=== PATIENT | female | born 2005 | race Caucasian/White ===

== ENCOUNTER → 2023-01-23 | Outpatient (CLI) | payer OTHER ==
--- NOTE | 2023-01-23 08:47 | USB ---
Reason for Exam: Clinical finding. Technique: Method: Whole Breast Handheld. Findings: The whole breast of both breasts, the axilla of both breasts and the retroareolar of both breasts were scanned. No solid or cystic masses are identified.. Overall Assessment: Negative, BI-RAD 1 Management: Screening Mammogram of both breasts at age 38. A clinical breast exam by your physician is recommended on an annual basis and results should be correlated with mammographic findings. This exam should not preclude additional follow-up of suspicious palpable abnormalities. Results were given to the patient verbally at the time of exam. Electronically signed and approved by: Keyon Tarango M.D. Radiologis
== END | disposition home or self-care (01) ==
LOC: RADUSWWP 08:00
PROVIDERS: ATTEND Family Medicine
DX: N63.10 Unspecified lump in the right breast, unspecified quadrant (principal); N63.20 Unspecified lump in the left breast, unspecified quadrant

== ENCOUNTER 2023-12-06 20:58 | Emergency (ER) | payer OTHER ==
[2023-12-06 21:16] VITALS: TEMP 98
--- NOTE | 2023-12-06 21:35 | ED ---
Nausea/Vomiting/Diarrhea HPI - General Source: patient, RN notes reviewed Mode of arrival: ambulatory Limitations: no limitations <Julissa Guevara - Last Filed: 12/06/23 21:34> <Dat Ash - Last Filed: 12/07/23 02:07> - General Chief complaint: Nausea/Vomiting/Diarrhea Stated complaint: NVD Time Seen by Provider: 12/06/23 21:34 - History of Present Illness Initial comments: Quick note: 18 year old female presenting to the ER with a chief complaint nausea vomiting. She states this been ongoing for approximately 1 month with a decreased appetite. She has a past 2 days has been unable keep anything down. She denies any current abdominal pain. (Julissa Guevara) 18-year-old female presenting with chief complaint of nausea and vomiting. Patient states that for the last month she has had daily nausea and vomiting. States that tonight when she was eating she was repeatedly vomiting and was unable to keep anything down. She denies any abdominal pain. She takes Zofran on occasion which does help, last took Zofran yesterday. She does admit to daily marijuana use. No alcohol or street drugs. Denies any abdominal surgeries. No diarrhea, hematochezia, melena. No chest pain or difficulty breathing. No fevers or chills. No URI-like symptoms. No dysuria or hematuria. No vaginal bleeding or abnormal discharge. Denies chance of . (Dat Ash) - Related Data Previous Rx's Medication Instructions Recorded Metoclopramide [Reglan] 10 mg PO ACHS PRN #10 tab 12/07/23 Allergies Allergy/AdvReac Type Severity Reaction Status Date / Time corn Allergy Unknown Verified 12/06/23 21:17 Review of Systems ROS Other: All systems not noted in ROS Statement are negative. <Julissa Guevara - Last Filed: 12/06/23 21:34> ROS Other: All systems not noted in ROS Statement are negative. <Dat Ash - Last Filed: 12/07/23 02:07> ROS Statement: Those systems with pertinent positive or pertinent negative responses have been documented in the HPI. Past Medical History Past Medical History: No Reported History History of Any Multi-Drug Resistant Organisms: None Reported Past Surgical History: No Surgical Hx Reported Past Psychological History: Bipolar, Depression Smoking Status: Never smoker Past Alcohol Use History: None Reported Past Drug Use History: Marijuana <Julissa Guevara - Last Filed: 12/06/23 21:34> General Exam Limitations: no limitations <Julissa Guevara - Last Filed: 12/06/23 21:34> Limitations: no limitations General appearance: alert, in no apparent distress Head exam: Present: atraumatic, normocephalic, normal inspection Eye exam: Present: normal appearance, EOMI Neck exam: Present: normal inspection. Absent: meningismus Respiratory exam: Present: normal lung sounds bilaterally. Absent: respiratory distress, wheezes, rales, rhonchi, stridor Cardiovascular Exam: Present: regular rate, normal rhythm, normal heart sounds. Absent: systolic murmur, diastolic murmur, rubs, gallop, clicks GI/Abdominal exam: Present: soft. Absent: distended, tenderness, guarding, rebound, rigid Neurological exam: Present: alert, oriented X3 Psychiatric exam: Present: normal affect, normal mood Skin exam: Present: warm, dry <Dat Ash - Last Filed: 12/07/23 02:07> - General Exam Comments Initial Comments: Visual Physical Exam Vital signs reviewed General: Well-appearing, nontoxic, no acute distress. Head: Normocephalic, atraumatic Eyes: PERRLA, EOMI ENT: Airway patent Chest: Nonlabored breathing Skin: No visual rash, normal skin tone Neuro: Alert and oriented 3 Musculoskeletal: No gross abnormalities (Julissa Guevara) Course Vital Signs 12/06/23 12/07/23 21:13 01:16 Temperature 98.0 F Pulse Rate 84 93 Respiratory 20 16 Rate Blood Pressure 116/83 102/64 O2 Sat by Pulse 99 99 Oximetry Medical Decision Making <Julissa Guevara - Last Filed: 12/06/23 21:34> - Lab Data Result diagrams: 12/06/23 23:15 12/06/23 23:15 <Dat Ash - Last Filed: 12/07/23 02:07> - Medical Decision Making I performed the quick note portion of this chart. Electronically signed by Julissa Guevara PA-C (Julissa Guevara) Was pt. sent in by a medical professional or institution ([facility], MORTGAGE SALES MANAGER, urgent care, hospital, or detention...) When possible be specific @ -No Did you speak to anyone other than the patient for history (EMS, parent, family, police, friend...)? What history was obtained from this source @ -No Did you review nursing and triage notes (agree or disagree)? Why? @ -I reviewed and agree with nursing and triage notes Were old charts reviewed (outside hosp., previous admission, EMS record, old EKG, old radiological studies, urgent care reports/EKG's, detention records)? Report findings @ -No old charts were reviewed Differential Diagnosis (chest pain, altered mental status, abdominal pain women, abdominal pain men, vaginal bleeding, weakness, fever, dyspnea, syncope, headache, dizziness, GI bleed, back pain, seizure, CVA, palpatations, mental health, musculoskeletal)? @ -Differential includes gastroenteritis, bowel obstruction, cannabinoid induced hyperemesis, appendicitis, cholecystitis, this is not an all-inclusive list EKG interpreted by me (3pts min.). @ -As above X-rays interpreted by me (1pt min.). @ -None done CT interpreted by me (1pt min.). @ -None done U/S interpreted by me (1pt. min.). @ -None done What testing was considered but not performed or refused? (CT, X-rays, U/S, labs)? Why? @ -None What meds were considered but not given or refused? Why? @ -None Did you discuss the management of the patient with other professionals (professionals i.e. [employer]oso, MORTGAGE SALES MANAGER, lab, RT, psych nurse, perinatal social worker, inside sales representative, teacher, conservation science officer, case planner)? Give summary @ -No Was smoking cessation discussed for >3mins.? @ -No Was critical care preformed (if so, how long)? @ -No Were there social determinants of health that impacted care today? How? (Homelessness, low income, unemployed, alcoholism, drug addiction, transportation, low edu. Level, literacy, decrease access to med. care, half-way, rehab)? @ -No Was there de-escalation of care discussed even if they declined (Discuss DNR or withdrawal of care, Hospice)? DNR status @ -No What co-morbidities impacted this encounter? (DM, HTN, Smoking, COPD, CAD, Cancer, CVA, ARF, Chemo, Hep., AIDS, mental health diagnosis, sleep apnea, morbid obesity)? @ -None Was patient admitted / discharged? Hospital course, mention meds given and route, prescriptions, significant lab abnormalities, going to OR and other pertinent info. @ -18-year-old female presenting with chief complaint of nausea and vomiting. History and physical examination are conducted. WBC 16.3, likely reactive. Patient shows signs of dehydration, sodium 135, potassium 3.4, bilirubin 2.4, urine ketones 4+. Patient is receiving IV fluids and oral potassium replacement. Negative urine hCG. Patient reports improvement after nausea medication. She is able to keep down angeli elizabeth. She is educated on today's findings. Educated on marijuana cessation as it is likely contributing in some part to her repeated vomiting. Discharged. Follow-up with PCP. Report back to ER with any new or worsening symptoms. Discussed return parameters and answered all questions. Patient conveyed verbal understanding and agreed to the plan. I discussed this case in detail with my attending Dr. Bermudez Undiagnosed new problem with uncertain prognosis? @ -No Drug Therapy requiring intensive monitoring for toxicity (Heparin, Nitro, Insulin, Cardizem)? @ -No Were any procedures done? @ -No Diagnosis/symptom? @ -Nausea and vomiting Acute, or Chronic, or Acute on Chronic? @ -Acute Uncomplicated (without systemic symptoms) or Complicated (systemic symptoms)? @ -Uncomplicated Side effects of treatment? @ -No Exacerbation, Progression, or Severe Exacerbation? @ -No Poses a threat to life or bodily function? How? (Chest pain, [place], [place], pneumonia, PE, COPD, DKA, ARF, appy, cholecystitis, CVA, Diverticulitis, Homicidal, Suicidal, threat to staff... and all critical care pts) @ -No (Dat Ash) - Lab Data Lab Results 12/06/23 12/06/23 12/06/23 Range/Units 21:29 21:29 23:15 WBC 16.3 H (4.0-11.0) k/uL RBC 4.99 (3.80-5.40) m/uL Hgb 14.8 (11.4-16.0) gm/dL Hct 44.9 (34.0-46.0) % MCV 90.0 (80.0-100.0) fL MCH 29.7 (25.0-35.0) pg MCHC 33.0 (31.0-37.0) g/dL RDW 12.0 (11.5-15.5) % Plt Count 264 (150-450) k/uL MPV 8.0 Neutrophils % 86 % Lymphocytes % 8 % Monocytes % 5 % Eosinophils % 0 % Basophils % 0 % Neutrophils # 14.0 H (1.3-7.7) k/uL Lymphocytes # 1.3 (1.0-4.8) k/uL Monocytes # 0.9 (0-1.0) k/uL Eosinophils # 0.0 (0-0.7) k/uL Basophils # 0.0 (0-0.2) k/uL Sodium (137-145) mmol/L Potassium (3.5-5.1) mmol/L Chloride (98-107) mmol/L Carbon Dioxide (22-30) mmol/L Anion Gap mmol/L BUN (7-17) mg/dL Creatinine (0.52-1.04) mg/dL Est GFR (CKD-EPI)AfAm (>60 ml/min/1.73 sqM) Est GFR (CKD-EPI)NonAf (>60 ml/min/1.73 sqM) Glucose (74-99) mg/dL Calcium (8.4-10.2) mg/dL Total Bilirubin (0.2-1.3) mg/dL AST (14-36) U/L ALT (4-34) U/L Alkaline Phosphatase (38-126) U/L Total Protein (6.3-8.2) g/dL Albumin (3.5-5.0) g/dL Amylase (30-110) U/L Lipase (23-300) U/L Urine Color Yellow Urine Appearance Cloudy H (Clear) Urine pH 6.0 (5.0-8.0) Ur Specific [place] 1.035 (1.001-1.035) Urine Protein 1+ H (Negative) Urine Glucose (UA) Negative (Negative) Urine Ketones 4+ H (Negative) Urine Blood Small H (Negative) Urine Nitrite Negative (Negative) Urine Bilirubin Negative (Negative) Urine Urobilinogen <2.0 (<2.0) mg/dL Ur Leukocyte Esterase Small H (Negative) Urine RBC 6 H (0-5) /hpf Urine WBC 7 H (0-5) /hpf Ur Squamous Epith Cells 8 H (0-4) /hpf Urine Bacteria Few H (None) /hpf Urine Mucus Moderate H (None) /hpf Urine HCG, Qual Not Detected (Not Detectd) 12/06/23 Range/Units 23:15 WBC (4.0-11.0) k/uL RBC (3.80-5.40) m/uL Hgb (11.4-16.0) gm/dL Hct (34.0-46.0) % MCV (80.0-100.0) fL MCH (25.0-35.0) pg MCHC (31.0-37.0) g/dL RDW (11.5-15.5) % Plt Count (150-450) k/uL MPV Neutrophils % % Lymphocytes % % Monocytes % % Eosinophils % % Basophils % % Neutrophils # (1.3-7.7) k/uL Lymphocytes # (1.0-4.8) k/uL Monocytes # (0-1.0) k/uL Eosinophils # (0-0.7) k/uL Basophils # (0-0.2) k/uL Sodium 135 L (137-145) mmol/L Potassium 3.4 L (3.5-5.1) mmol/L Chloride 103 (98-107) mmol/L Carbon Dioxide 17 L (22-30) mmol/L Anion Gap 15 mmol/L BUN 13 (7-17) mg/dL Creatinine 0.61 (0.52-1.04) mg/dL Est GFR (CKD-EPI)AfAm >90 (>60 ml/min/1.73 sqM) Est GFR (CKD-EPI)NonAf >90 (>60 ml/min/1.73 sqM) Glucose 97 (74-99) mg/dL Calcium 10.4 H (8.4-10.2) mg/dL Total Bilirubin 2.4 H (0.2-1.3) mg/dL AST 30 (14-36) U/L ALT 17 (4-34) U/L Alkaline Phosphatase 65 (38-126) U/L Total Protein 9.0 H (6.3-8.2) g/dL Albumin 5.4 H (3.5-5.0) g/dL Amylase 50 (30-110) U/L Lipase 47 (23-300) U/L Urine Color Urine Appearance (Clear) Urine pH (5.0-8.0) Ur Specific [place] (1.001-1.035) Urine Protein (Negative) Urine Glucose (UA) (Negative) Urine Ketones (Negative) Urine Blood (Negative) Urine Nitrite (Negative) Urine Bilirubin (Negative) Urine Urobilinogen (<2.0) mg/dL Ur Leukocyte Esterase (Negative) Urine RBC (0-5) /hpf Urine WBC (0-5) /hpf Ur Squamous Epith Cells (0-4) /hpf Urine Bacteria (None) /hpf Urine Mucus (None) /hpf Urine HCG, Qual (Not Detectd) Disposition <Julissa Guevara - Last Filed: 12/06/23 21:34> Is patient prescribed a controlled substance at d/c from ED?: No Time of Disposition: 01:57 <Dat Ash - Last Filed: 12/07/23 02:07> Clinical Impression: Nausea & vomiting Disposition: HOME SELF-CARE Condition: Good Instructions (If sedation given, give patient instructions): Acute Nausea and Vomiting (ED) Additional Instructions: Follow-up with PCP. Report back to ER with any new or worsening symptoms. Stay well-hydrated. Take your medication as prescribed. Avoid cannabis use as this can induce vomiting. Prescriptions: Metoclopramide [Reglan] 10 mg PO ACHS PRN #10 tab PRN Reason: Nausea Referrals: Ulises Barraza DO [Primary Care Provider] - 1-2 days
[2023-12-06 23:05] LABS: Appearance,Urine Cloudy (Clear); Bacteria,Urine Few /hpf; Bilirubin,Urine Negative (Negative); Blood,Urine Small (Negative); Color,Urine Yellow; Glucose,Urine (UA) Negative (Negative); Leukocyte Esterase,Urine Small (Negative); Mucus,Urine Moderate /hpf; Nitrite,Urine Negative (Negative); Protein,Urine 1+ (Negative); RBC,Urine 6 /hpf (0-5); Specific Gravity,Urine 1.035 (1.001-1.035); Squamous Epithelial Cell,Urine 8 /hpf (0-4); Urobilinogen,Urine <2.0 mg/dL (<2.0); WBC,Urine 7 /hpf (0-5)
[2023-12-06 23:06] LABS: Ketones,Urine 4+ (Negative)
[2023-12-06] MEDS: ONDANSETRON 4 MG/2 ML VIAL IVP STA (23:11)
[2023-12-06] MEDS: SODIUM CHLORIDE 0.9% 1,000 ML IV ONE (23:12)
[2023-12-06 23:59] LABS: Basophils % (A) 0 %; Eosinophils % (A) 0 %; HCT 44.9 % (34.0-46.0); HGB 14.8 gm/dL (11.4-16.0); Lymphocytes # (A) 1.3 k/uL (1.0-4.8); Lymphocytes % (A) 8 %; MCH 29.7 pg (25.0-35.0); Monocytes # (A) 0.9 k/uL (0-1.0); Monocytes % (A) 5 %; Neutrophils % (A) 86 %; Platelet Count 264 k/uL (150-450); RBC 4.99 m/uL (3.80-5.40); WBC 16.3 k/uL (4.0-11.0)
[2023-12-07 00:44] LABS: ALT 17 U/L (4-34); AST 30 U/L (14-36); African American GFR (CKD) >90 (>60 ml/min/1.73 sqM); Albumin 5.4 g/dL (3.5-5.0); Alkaline Phosphatase 65 U/L (38-126); Amylase 50 U/L (30-110); Anion Gap 15 mmol/L; Blood Urea Nitrogen 13 mg/dL (7-17); Calcium 10.4 mg/dL (8.4-10.2); Carbon Dioxide 17 mmol/L (22-30); Chloride 103 mmol/L (98-107); Glucose 97 mg/dL (74-99); Lipase 47 U/L (23-300); Non-African American GFR(CKD) >90 (>60 ml/min/1.73 sqM); Potassium 3.4 mmol/L (3.5-5.1); Sodium 135 mmol/L (137-145); Total Bilirubin 2.4 mg/dL (0.2-1.3)
[2023-12-07] MEDS: SODIUM CHLORIDE 0.9% 1,000 ML IV STA (01:39)
[2023-12-07] MEDS: METOCLOPRAMIDE 5 MG/ML 2 ML VIAL IVP STA (02:30)
[2023-12-07 02:45] VITALS: BP 100/60; PULSE 90; RESP 18
[2023-12-07] MEDS: POTASSIUM CHLORIDE ER 20 MEQ TAB.ER PO STA (02:49)
== END 2023-12-07 02:45 | disposition home or self-care (01) ==
LOC: EC 20:58
CPT/HCPCS: 36415; 80053; 81001; 81025; 82150; 83690; 85025; 96361; 96374; 96375; 99284

== ENCOUNTER 2024-03-09 10:29 | Emergency (ER) | payer OTHER ==
[2024-03-09 10:35] VITALS: TEMP 98.4
[2024-03-09 11:01] LABS: Basophils % (A) 0 %; Eosinophils % (A) 0 %; HCT 44.1 % (34.0-46.0); HGB 14.8 gm/dL (11.4-16.0); Lymphocytes # (A) 1.6 k/uL (1.0-4.8); Lymphocytes % (A) 12 %; MCH 29.7 pg (25.0-35.0); MCHC 33.5 g/dL (31.0-37.0); MCV 88.6 fL (80.0-100.0); Mean Platelet Volume 7.4; Monocytes # (A) 0.8 k/uL (0-1.0); Monocytes % (A) 6 %; Neutrophils # (A) 11.1 k/uL (1.3-7.7); Neutrophils % (A) 81 %; Platelet Count 281 k/uL (150-450); RBC 4.98 m/uL (3.80-5.40); WBC 13.6 k/uL (4.0-11.0)
--- NOTE | 2024-03-09 11:01 | ED ---
Nausea/Vomiting/Diarrhea HPI - General Chief complaint: Nausea/Vomiting/Diarrhea Stated complaint: vomiting Time Seen by Provider: 03/09/24 10:35 Source: patient, family, RN notes reviewed Mode of arrival: ambulatory Limitations: no limitations - History of Present Illness Initial comments: Patient is a 18 year old female presenting with nausea and vomiting x 2 days with her who provides history. He notes that it started after going to grandparents house and the aroma of cooking caused nausea and vomiting, which has occured on and off for the past 2-3 months. She notes she has also had diarrhea during this time. She endorses "crampy" diffuse abdominal pain without radiation, sore throat from profuse vomiting, and has noticed some slight blood in her vomit. She is unable to keep any food or liquid down. She states her last menstrual period being 2 weeks ago and does not believe she is . She notes smoking marijuana for the past few months in the form of "dabs" once daily at night, her notes that pt has stopped smoking about 1 week ago per recommendation after previous ED visit for similar symptoms. She denies any sick contacts or cough. Of note, her PCP is following her for possible ulcer due to her frequency of similar symptoms per her . - Related Data Previous Rx's Medication Instructions Recorded Metoclopramide [Reglan] 10 mg PO ACHS PRN #10 tab 12/07/23 Metoclopramide [Reglan] 10 mg PO TID PRN #15 tab 03/09/24 Ondansetron Odt [Zofran Odt] 4 mg PO Q8HR PRN #14 tab 03/09/24 Allergies Allergy/AdvReac Type Severity Reaction Status Date / Time corn Allergy Unknown Verified 03/09/24 10:31 Review of Systems ROS Statement: Those systems with pertinent positive or pertinent negative responses have been documented in the HPI. ROS Other: All systems not noted in ROS Statement are negative. Past Medical History Past Medical History: No Reported History History of Any Multi-Drug Resistant Organisms: None Reported Past Surgical History: No Surgical Hx Reported Past Psychological History: Bipolar, Depression Smoking Status: Never smoker Past Alcohol Use History: Occasional Past Drug Use History: Marijuana General Exam Limitations: no limitations General appearance: alert, in no apparent distress Head exam: Present: atraumatic, normocephalic, normal inspection Eye exam: Present: normal appearance, PERRL, EOMI. Absent: scleral icterus, conjunctival injection, periorbital swelling ENT exam: Present: normal exam, mucous membranes dry Neck exam: Present: normal inspection, full ROM. Absent: tenderness, meningismus, lymphadenopathy Respiratory exam: Present: normal lung sounds bilaterally. Absent: respiratory distress, wheezes, rales, rhonchi, stridor Cardiovascular Exam: Present: regular rate, normal rhythm, normal heart sounds. Absent: systolic murmur, diastolic murmur, rubs, gallop, clicks GI/Abdominal exam: Present: soft. Absent: distended, tenderness, guarding, rebound, rigid Skin exam: Present: warm, dry, intact, normal color. Absent: rash Course Vital Signs 03/09/24 03/09/24 10:32 12:38 Temperature 98.4 F Pulse Rate 95 78 Respiratory 20 18 Rate Blood Pressure 133/92 126/74 O2 Sat by Pulse 98 98 Oximetry Medical Decision Making - Medical Decision Making Was pt. sent in by a medical professional or institution (, PA, HIGH SCHOOL BAND TEACHER, urgent care, hospital, or assisted...) When possible be specific @ -No Did you speak to anyone other than the patient for history (EMS, parent, family, police, friend...)? What history was obtained from this source @ -No Did you review nursing and triage notes (agree or disagree)? Why? @ -I reviewed and agree with nursing and triage notes Were old charts reviewed (outside hosp., previous admission, EMS record, old EKG, old radiological studies, urgent care reports/EKG's, assisted records)? Report findings @ -No old charts were reviewed Differential Diagnosis (chest pain, altered mental status, abdominal pain women, abdominal pain men, vaginal bleeding, weakness, fever, dyspnea, syncope, headac he, dizziness, GI bleed, back pain, seizure, CVA, palpatations, mental health, musculoskeletal)? @ -Differential Abdominal Pain Women: Appendicitis, Cholecystitis, diverticulosis, ischemic bowel, pancreatitis, hepatitis, UTI, gastroenteritis, AAA, incarcerated hernia, bowel obstruction, constipation, inflammatory bowel, hepatitis, peptic ulcer disease, splenic infarction, perforated viscus, vulvitis, ovarian torsion, PID, kidney stone, placenta abruption, this is not meant to be an all-inclusive list EKG interpreted by me (3pts min.). @None X-rays interpreted by me (1pt min.). @ -None done CT interpreted by me (1pt min.). @ -None done U/S interpreted by me (1pt. min.). @ -None done What testing was considered but not performed or refused? (CT, X-rays, U/S, labs)? Why? @ -None What meds were considered but not given or refused? Why? @ -None Did you discuss the management of the patient with other professionals (professionals i.e. , PA, HIGH SCHOOL BAND TEACHER, lab, RT, psych nurse, social insurance adviser, cash person, teacher, legal compliance officer, case maker)? Give summary @ -No Was smoking cessation discussed for >3mins.? @ -No Was critical care preformed (if so, how long)? @ -No Were there social determinants of health that impacted care today? How? (Homelessness, low income, unemployed, alcoholism, drug addiction, transportation, low edu. Level, literacy, decrease access to med. care, long term, rehab)? @ -No Was there de-escalation of care discussed even if they declined (Discuss DNR or withdrawal of care, Hospice)? DNR status @ -No What co-morbidities impacted this encounter? (DM, HTN, Smoking, COPD, CAD, C ancer, CVA, ARF, Chemo, Hep., AIDS, mental health diagnosis, sleep apnea, morbid obesity)? @ -Marijuana use Was patient admitted / discharged? Hospital course, mention meds given and route, prescriptions, significant lab abnormalities, going to OR and other pertinent info. @ -Discharge patient felt improved after IV fluids, antiemetics. Patient discharged in stable condition advised to continue refraining from marijuana use. Undiagnosed new problem with uncertain prognosis? @ -No Drug Therapy requiring intensive monitoring for toxicity (Heparin, Nitro, Insulin, Cardizem)? @ -No Were any procedures done? @ -No Diagnosis/symptom? @ -Nausea vomiting dehydration Acute, or Chronic, or Acute on Chronic? @ -Acute Uncomplicated (without systemic symptoms) or Complicated (systemic symptoms)? @ -Uncomplicated Side effects of treatment? @ -No Exacerbation, Progression, or Severe Exacerbation? @ -No Poses a threat to life or bodily function? How? (Chest pain, [place], [place], pneumonia, PE, COPD, DKA, ARF, appy, cholecystitis, CVA, Diverticulitis, Homicidal, Suicidal, threat to staff... and all critical care pts) @ -No - Lab Data Result diagrams: 03/09/24 10:55 03/09/24 10:55 Lab Results 03/09/24 03/09/24 03/09/24 Range/Units 10:55 10:55 11:15 WBC 13.6 H (4.0-11.0) k/uL RBC 4.98 (3.80-5.40) m/uL Hgb 14.8 (11.4-16.0) gm/dL Hct 44.1 (34.0-46.0) % MCV 88.6 (80.0-100.0) fL MCH 29.7 (25.0-35.0) pg MCHC 33.5 (31.0-37.0) g/dL RDW 13.0 (11.5-15.5) % Plt Count 281 (150-450) k/uL MPV 7.4 Neutrophils % 81 % Lymphocytes % 12 % Monocytes % 6 % Eosinophils % 0 % Basophils % 0 % Neutrophils # 11.1 H (1.3-7.7) k/uL Lymphocytes # 1.6 (1.0-4.8) k/uL Monocytes # 0.8 (0-1.0) k/uL Eosinophils # 0.0 (0-0.7) k/uL Basophils # 0.0 (0-0.2) k/uL Sodium 136 L (137-145) mmol/L Potassium 3.3 L (3.5-5.1) mmol/L Chloride 97 L (98-107) mmol/L Carbon Dioxide 26 (22-30) mmol/L Anion Gap 13 mmol/L BUN 8 (7-17) mg/dL Creatinine 0.69 (0.52-1.04) mg/dL Est GFR (CKD-EPI)AfAm >90 (>60 ml/min/1.73 sqM) Est GFR (CKD-EPI)NonAf >90 (>60 ml/min/1.73 sqM) Glucose 114 H (74-99) mg/dL Calcium 10.5 H (8.4-10.2) mg/dL Total Bilirubin 1.5 H (0.2-1.3) mg/dL AST 19 (14-36) U/L ALT 14 (4-34) U/L Alkaline Phosphatase 72 (38-126) U/L Total Protein 8.2 (6.3-8.2) g/dL Albumin 5.2 H (3.5-5.0) g/dL Urine Color Yellow Urine Appearance Cloudy H (Clear) Urine pH 6.5 (5.0-8.0) Ur Specific [place] 1.034 (1.001-1.035) Urine Protein 1+ H (Negative) Urine Glucose (UA) Negative (Negative) Urine Ketones 3+ H (Negative) Urine Blood Negative (Negative) Urine Nitrite Negative (Negative) Urine Bilirubin Negative (Negative) Urine Urobilinogen 2.0 (<2.0) mg/dL Ur Leukocyte Esterase Trace H (Negative) Urine RBC 3 (0-5) /hpf Urine WBC 7 H (0-5) /hpf Ur Squamous Epith Cells 11 H (0-4) /hpf Urine Bacteria Rare H (None) /hpf Urine Mucus Many H (None) /hpf Urine HCG, Qual (Not Detectd) 03/09/24 Range/Units 11:15 WBC (4.0-11.0) k/uL RBC (3.80-5.40) m/uL Hgb (11.4-16.0) gm/dL Hct (34.0-46.0) % MCV (80.0-100.0) fL MCH (25.0-35.0) pg MCHC (31.0-37.0) g/dL RDW (11.5-15.5) % Plt Count (150-450) k/uL MPV Neutrophils % % Lymphocytes % % Monocytes % % Eosinophils % % Basophils % % Neutrophils # (1.3-7.7) k/uL Lymphocytes # (1.0-4.8) k/uL Monocytes # (0-1.0) k/uL Eosinophils # (0-0.7) k/uL Basophils # (0-0.2) k/uL Sodium (137-145) mmol/L Potassium (3.5-5.1) mmol/L Chloride (98-107) mmol/L Carbon Dioxide (22-30) mmol/L Anion Gap mmol/L BUN (7-17) mg/dL Creatinine (0.52-1.04) mg/dL Est GFR (CKD-EPI)AfAm (>60 ml/min/1.73 sqM) Est GFR (CKD-EPI)NonAf (>60 ml/min/1.73 sqM) Glucose (74-99) mg/dL Calcium (8.4-10.2) mg/dL Total Bilirubin (0.2-1.3) mg/dL AST (14-36) U/L ALT (4-34) U/L Alkaline Phosphatase (38-126) U/L Total Protein (6.3-8.2) g/dL Albumin (3.5-5.0) g/dL Urine Color Urine Appearance (Clear) Urine pH (5.0-8.0) Ur Specific [place] (1.001-1.035) Urine Protein (Negative) Urine Glucose (UA) (Negative) Urine Ketones (Negative) Urine Blood (Negative) Urine Nitrite (Negative) Urine Bilirubin (Negative) Urine Urobilinogen (<2.0) mg/dL Ur Leukocyte Esterase (Negative) Urine RBC (0-5) /hpf Urine WBC (0-5) /hpf Ur Squamous Epith Cells (0-4) /hpf Urine Bacteria (None) /hpf Urine Mucus (None) /hpf Urine HCG, Qual Not Detected (Not Detectd) Disposition Clinical Impression: Nausea & vomiting, Dehydration Disposition: HOME SELF-CARE Condition: Stable Instructions (If sedation given, give patient instructions): Acute Nausea and Vomiting (ED) Additional Instructions: Please return to the Emergency Department if symptoms worsen or any other concerns. Prescriptions: Metoclopramide [Reglan] 10 mg PO TID PRN #15 tab PRN Reason: Nausea Ondansetron Odt [Zofran Odt] 4 mg PO Q8HR PRN #14 tab PRN Reason: Nausea Is patient prescribed a controlled substance at d/c from ED?: No Referrals: Ulises Barraza DO [Primary Care Provider] - 1-2 days Nichole Silva MD [STAFF PHYSICIAN] - 1-2 days Time of Disposition: 12:30
[2024-03-09] MEDS: METOCLOPRAMIDE 5 MG/ML 2 ML VIAL IVP STA (11:10)
[2024-03-09] MEDS: SODIUM CHLORIDE 0.9% 1,000 ML IV STA ×2 (11:10→11:56)
[2024-03-09] MEDS: diphenhydrAMINE 50 MG/ML 1 ML VIAL IVP STA (11:10)
[2024-03-09 11:17] LABS: ALT 14 U/L (4-34); AST 19 U/L (14-36); African American GFR (CKD) >90 (>60 ml/min/1.73 sqM); Albumin 5.2 g/dL (3.5-5.0); Alkaline Phosphatase 72 U/L (38-126); Anion Gap 13 mmol/L; Blood Urea Nitrogen 8 mg/dL (7-17); Calcium 10.5 mg/dL (8.4-10.2); Carbon Dioxide 26 mmol/L (22-30); Chloride 97 mmol/L (98-107); Glucose 114 mg/dL (74-99); Non-African American GFR(CKD) >90 (>60 ml/min/1.73 sqM); Potassium 3.3 mmol/L (3.5-5.1); Sodium 136 mmol/L (137-145); Total Bilirubin 1.5 mg/dL (0.2-1.3); Total Protein 8.2 g/dL (6.3-8.2)
[2024-03-09 11:26] LABS: Appearance,Urine Cloudy (Clear); Bacteria,Urine Rare /hpf; Bilirubin,Urine Negative (Negative); Blood,Urine Negative (Negative); Color,Urine Yellow; Glucose,Urine (UA) Negative (Negative); Ketones,Urine 3+ (Negative); Leukocyte Esterase,Urine Trace (Negative); Mucus,Urine Many /hpf; Nitrite,Urine Negative (Negative); PH, Urine 6.5 (5.0-8.0); Protein,Urine 1+ (Negative); RBC,Urine 3 /hpf (0-5); Specific Gravity,Urine 1.034 (1.001-1.035); Squamous Epithelial Cell,Urine 11 /hpf (0-4); WBC,Urine 7 /hpf (0-5)
[2024-03-09 12:39] VITALS: BP 126/74; PULSE 78; RESP 18
== END 2024-03-09 12:39 | disposition home or self-care (01) ==
LOC: EC 10:29
DX: R11.2 Nausea with vomiting, unspecified (principal); E86.0 Dehydration; F12.90 Cannabis use, unspecified, uncomplicated; Z91.018 Allergy to other foods
CPT/HCPCS: 96361 ×2; 96374 ×2; 96375 ×2; 99284 ×2; 36415; 80053; 85025; 81001; 81025; J1200; J2765

== ENCOUNTER 2024-03-10 16:15 | Emergency (ER) | payer OTHER ==
[2024-03-10 16:27] VITALS: TEMP 99.6
--- NOTE | 2024-03-10 16:34 | ED ---
Nausea/Vomiting/Diarrhea HPI - General Chief complaint: Nausea/Vomiting/Diarrhea Stated complaint: vomiting Time Seen by Provider: 03/10/24 16:31 Source: patient, RN notes reviewed Mode of arrival: ambulatory Limitations: no limitations - History of Present Illness Initial comments: This is a 18-year-old female with no significant medical history presenting to the emergency department for intractable nausea and vomiting over the past 2 days. Patient was evaluated yesterday emergency department where she underwent workup including laboratory testing and urinalysis provided with IV fluids and discharged home in stable condition. Patient states that since 12:00 today she has been unable to keep down liquids despite taking sublingual Zofran. She e ndorses a epigastric abdominal cramping with no abdominal pain, dysuria, hematuria. Endorses diarrhea with no melena or hematochezia. Denies fevers, chills, cough, congestion, rhinorrhea, headache. States that she uses alcohol socially and admits to previous daily marijuana use however states that she has not had marijuana over the past 2 weeks. - Related Data Previous Rx's Medication Instructions Recorded Metoclopramide [Reglan] 10 mg PO ACHS PRN #10 tab 12/07/23 Metoclopramide [Reglan] 10 mg PO TID PRN #15 tab 03/09/24 Ondansetron Odt [Zofran Odt] 4 mg PO Q8HR PRN #14 tab 03/09/24 Cephalexin [Keflex] 500 mg PO Q6HR #40 cap 03/10/24 Allergies Allergy/AdvReac Type Severity Reaction Status Date / Time corn Allergy Unknown Verified 03/10/24 16:27 Review of Systems ROS Statement: Those systems with pertinent positive or pertinent negative responses have been documented in the HPI. ROS Other: All systems not noted in ROS Statement are negative. Past Medical History Past Medical History: No Reported History History of Any Multi-Drug Resistant Organisms: None Reported Past Surgical History: No Surgical Hx Reported Past Psychological History: Bipolar, Depression Smoking Status: Never smoker Past Alcohol Use History: Occasional Past Drug Use History: Marijuana General Exam Limitations: no limitations Eye exam: Present: normal appearance, PERRL, EOMI. Absent: scleral icterus, conjunctival injection, periorbital swelling ENT exam: Present: normal exam, mucous membranes moist Respiratory exam: Present: normal lung sounds bilaterally. Absent: respiratory distress, wheezes, rales, rhonchi, stridor Cardiovascular Exam: Present: regular rate, normal rhythm, normal heart sounds. Absent: systolic murmur, diastolic murmur, rubs, gallop, clicks GI/Abdominal exam: Present: soft, normal bowel sounds. Absent: distended, tenderness, guarding, rebound, rigid Extremities exam: Present: normal inspection, full ROM, normal capillary refill. Absent: tenderness, pedal edema, joint swelling, calf tenderness Back exam: Present: normal inspection Skin exam: Present: warm, dry, intact, normal color. Absent: rash Course Vital Signs 03/10/24 16:24 Temperature 99.6 F Pulse Rate 64 Respiratory 16 Rate Blood Pressure 127/84 O2 Sat by Pulse 96 Oximetry Medical Decision Making - Medical Decision Making Was pt. sent in by a medical professional or institution (, PA, KEY HOLDER, urgent c are, hospital, or half-way...) When possible be specific @ -No Did you speak to anyone other than the patient for history (EMS, parent, family, police, friend...)? What history was obtained from this source @ -No Did you review nursing and triage notes (agree or disagree)? Why? @ -I reviewed and agree with nursing and triage notes Were old charts reviewed (outside hosp., previous admission, EMS record, old EKG, old radiological studies, urgent care reports/EKG's, half-way records)? Report findings @ -Reviewed patient's chart from 03/30 where she presented with nausea and vomiting labs remarkable for mild hypokalemia and leukocytosis, patient was discharged in stable condition. Differential Diagnosis (chest pain, altered mental status, abdominal pain women, abdominal pain men, vaginal bleeding, weakness, fever, dyspnea, syncope, headache, dizziness, GI bleed, back pain, seizure, CVA, palpatations, mental health, musculoskeletal)? @ -Differential Abdominal Pain Women: Appendicitis, Cholecystitis, diverticulosis, ischemic bowel, pancreatitis, hepatitis, UTI, gastroenteritis, AAA, incarcerated hernia, bowel obstruction, constipation, inflammatory bowel, hepatitis, peptic ulcer disease, splenic infarction, perforated viscus, vulvitis, ovarian torsion, PID, kidney stone, pl acenta abruption, this is not meant to be an all-inclusive list EKG interpreted by me (3pts min.). @ -None X-rays interpreted by me (1pt min.). @ -None done CT interpreted by me (1pt min.). @ -None done U/S interpreted by me (1pt. min.). @ -None done What testing was considered but not performed or refused? (CT, X-rays, U/S, labs)? Why? @ -None What meds were considered but not given or refused? Why? @ -None Did you discuss the management of the patient with other professionals (professionals i.e. , PA, KEY HOLDER, lab, RT, psych nurse, clinical social work therapist, nitroglycerin separator operator, teacher, gunnery/ordnance officer, human services case manager)? Give summary @ -No Was smoking cessation discussed for >3mins.? @ -No Was critical care preformed (if so, how long)? @ -No Were there social determinants of health that impacted care today? How? (Ho melessness, low income, unemployed, alcoholism, drug addiction, transportation, low edu. Level, literacy, decrease access to med. care, fci, rehab)? @ -No Was there de-escalation of care discussed even if they declined (Discuss DNR or withdrawal of care, Hospice)? DNR status @ -No What co-morbidities impacted this encounter? (DM, HTN, Smoking, COPD, CAD, Cancer, CVA, ARF, Chemo, Hep., AIDS, mental health diagnosis, sleep apnea, morbid obesity)? @ -None Was patient admitted / discharged? Hospital course, mention meds given and route, prescriptions, significant lab abnormalities, going to OR and other pertinent info. @ -Discharged. 18-year-old female presenting with nausea and vomiting. Abd ominal examination is unremarkable. Vitals are stable. she is provided with IV fluids, antiemetics, Protonix, Benadryl pending laboratory results. CBC and CMP unremarkable. Urinalysis remarkable for infection including positive nitrates, white cells and occasional bacteria, hCG is negative. Patient is provided with Rocephin and outpatient prescription for Keflex. Additionally, patient's urine sent for culture. Patient has prescription for Zofran provided yesterday and recommend that she take this medication as needed addition to following a liquid diet over the next 24 hours. Case discussed with Dr. Bhatt Undiagnosed new problem with uncertain prognosis? @ -No Drug Therapy requiring intensive monitoring for toxicity (Heparin, Nitro, Insulin, Cardizem)? @ -No Were any procedures done? @ -No Diagnosis/symptom? @ -Nausea and vomiting, urinary tract infection Acute, or Chronic, or Acute on Chronic? @ -acute Uncomplicated (without systemic symptoms) or Complicated (systemic symptoms)? @ - uncomplicated Side effects of treatment? @ -No Exacerbation, Progression, or Severe Exacerbation? @ -No Poses a threat to life or bodily function? How? (Chest pain, [place], [place], pneumonia, PE, COPD, DKA, ARF, appy, cholecystitis, CVA, Diverticulitis, Homicidal, Suicidal, threat to staff... and all critical care pts) @ -No - Lab Data Result diagrams: 03/10/24 17:02 03/10/24 17:02 Lab Results 03/10/24 03/10/24 03/10/24 Range/Units 17:02 17:02 17:02 WBC 10.8 (4.0-11.0) k/uL RBC 4.52 (3.80-5.40) m/uL Hgb 13.6 (11.4-16.0) gm/dL Hct 41.1 (34.0-46.0) % MCV 90.9 (80.0-100.0) fL MCH 30.0 (25.0-35.0) pg MCHC 33.0 (31.0-37.0) g/dL RDW 12.6 (11.5-15.5) % Plt Count 221 (150-450) k/uL MPV 7.2 Neutrophils % 75 % Lymphocytes % 17 % Monocytes % 7 % Eosinophils % 0 % Basophils % 0 % Neutrophils # 8.1 H (1.3-7.7) k/uL Lymphocytes # 1.8 (1.0-4.8) k/uL Monocytes # 0.7 (0-1.0) k/uL Eosinophils # 0.0 (0-0.7) k/uL Basophils # 0.0 (0-0.2) k/uL Sodium 134 L (137-145) mmol/L Potassium 3.6 (3.5-5.1) mmol/L Chloride 99 (98-107) mmol/L Carbon Dioxide 28 (22-30) mmol/L Anion Gap 7 mmol/L BUN 9 (7-17) mg/dL Creatinine 0.64 (0.52-1.04) mg/dL Est GFR (CKD-EPI)AfAm >90 (>60 ml/min/1.73 sqM) Est GFR (CKD-EPI)NonAf >90 (>60 ml/min/1.73 sqM) Glucose 101 H (74-99) mg/dL Calcium 9.6 (8.4-10.2) mg/dL Total Bilirubin 1.1 (0.2-1.3) mg/dL AST 17 (14-36) U/L ALT 11 (4-34) U/L Alkaline Phosphatase 61 (38-126) U/L Total Protein 6.7 (6.3-8.2) g/dL Albumin 4.4 (3.5-5.0) g/dL Amylase 33 (30-110) U/L Lipase 32 (23-300) U/L Urine Color Yellow Urine Appearance Cloudy H (Clear) Urine pH 6.5 (5.0-8.0) Ur Specific [place] 1.029 (1.001-1.035) Urine Protein 1+ H (Negative) Urine Glucose (UA) Negative (Negative) Urine Ketones 4+ H (Negative) Urine Blood Negative (Negative) Urine Nitrite Positive H (Negative) Urine Bilirubin Negative (Negative) Urine Urobilinogen 2.0 (<2.0) mg/dL Ur Leukocyte Esterase Negative (Negative) Urine RBC 7 H (0-5) /hpf Urine WBC 6 H (0-5) /hpf Ur Squamous Epith Cells 4 (0-4) /hpf Urine Bacteria Occasional H (None) /hpf Urine Mucus Many H (None) /hpf Urine HCG, Qual (Not Detectd) 03/10/24 Range/Units 17:02 WBC (4.0-11.0) k/uL RBC (3.80-5.40) m/uL Hgb (11.4-16.0) gm/dL Hct (34.0-46.0) % MCV (80.0-100.0) fL MCH (25.0-35.0) pg MCHC (31.0-37.0) g/dL RDW (11.5-15.5) % Plt Count (150-450) k/uL MPV Neutrophils % % Lymphocytes % % Monocytes % % Eosinophils % % Basophils % % Neutrophils # (1.3-7.7) k/uL Lymphocytes # (1.0-4.8) k/uL Monocytes # (0-1.0) k/uL Eosinophils # (0-0.7) k/uL Basophils # (0-0.2) k/uL Sodium (137-145) mmol/L Potassium (3.5-5.1) mmol/L Chloride (98-107) mmol/L Carbon Dioxide (22-30) mmol/L Anion Gap mmol/L BUN (7-17) mg/dL Creatinine (0.52-1.04) mg/dL Est GFR (CKD-EPI)AfAm (>60 ml/min/1.73 sqM) Est GFR (CKD-EPI)NonAf (>60 ml/min/1.73 sqM) Glucose (74-99) mg/dL Calcium (8.4-10.2) mg/dL Total Bilirubin (0.2-1.3) mg/dL AST (14-36) U/L ALT (4-34) U/L Alkaline Phosphatase (38-126) U/L Total Protein (6.3-8.2) g/dL Albumin (3.5-5.0) g/dL Amylase (30-110) U/L Lipase (23-300) U/L Urine Color Urine Appearance (Clear) Urine pH (5.0-8.0) Ur Specific [place] (1.001-1.035) Urine Protein (Negative) Urine Glucose (UA) (Negative) Urine Ketones (Negative) Urine Blood (Negative) Urine Nitrite (Negative) Urine Bilirubin (Negative) Urine Urobilinogen (<2.0) mg/dL Ur Leukocyte Esterase (Negative) Urine RBC (0-5) /hpf Urine WBC (0-5) /hpf Ur Squamous Epith Cells (0-4) /hpf Urine Bacteria (None) /hpf Urine Mucus (None) /hpf Urine HCG, Qual Not Detected (Not Detectd) Disposition Clinical Impression: Nausea and vomiting, UTI (urinary tract infection) Disposition: HOME SELF-CARE Condition: Good Instructions (If sedation given, give patient instructions): Urinary Tract Infection in Women (ED), Acute Nausea and Vomiting (ED) Additional Instructions: Please return to the Emergency Department if symptoms worsen or any other concerns. Prescriptions: Cephalexin [Keflex] 500 mg PO Q6HR #40 cap Is patient prescribed a controlled substance at d/c from ED?: No Referrals: Ulises Barraza DO [Primary Care Provider] - 1-2 days Time of Disposition: 17:56
[2024-03-10] MEDS: PANTOPRAZOLE 40 MG/10 ML VIAL IVP STA (16:56)
[2024-03-10] MEDS: diphenhydrAMINE 50 MG/ML 1 ML VIAL IVP STA (16:56)
[2024-03-10] MEDS: ONDANSETRON 4 MG/2 ML VIAL IVP STA (16:56)
[2024-03-10] MEDS: SODIUM CHLORIDE 0.9% 1,000 ML IV STA (16:56)
[2024-03-10 17:21] LABS: Basophils % (A) 0 %; Eosinophils % (A) 0 %; HCT 41.1 % (34.0-46.0); HGB 13.6 gm/dL (11.4-16.0); Lymphocytes # (A) 1.8 k/uL (1.0-4.8); Lymphocytes % (A) 17 %; MCV 90.9 fL (80.0-100.0); Mean Platelet Volume 7.2; Monocytes # (A) 0.7 k/uL (0-1.0); Monocytes % (A) 7 %; Neutrophils # (A) 8.1 k/uL (1.3-7.7); Neutrophils % (A) 75 %; Platelet Count 221 k/uL (150-450); RBC 4.52 m/uL (3.80-5.40); RDW 12.6 % (11.5-15.5); WBC 10.8 k/uL (4.0-11.0)
[2024-03-10 17:26] LABS: Appearance,Urine Cloudy (Clear); Bacteria,Urine Occasional /hpf; Bilirubin,Urine Negative (Negative); Blood,Urine Negative (Negative); Color,Urine Yellow; Glucose,Urine (UA) Negative (Negative); Leukocyte Esterase,Urine Negative (Negative); Mucus,Urine Many /hpf; Nitrite,Urine Positive (Negative); PH, Urine 6.5 (5.0-8.0); Protein,Urine 1+ (Negative); RBC,Urine 7 /hpf (0-5); Specific Gravity,Urine 1.029 (1.001-1.035); Squamous Epithelial Cell,Urine 4 /hpf (0-4); WBC,Urine 6 /hpf (0-5)
[2024-03-10 17:36] LABS: ALT 11 U/L (4-34); AST 17 U/L (14-36); African American GFR (CKD) >90 (>60 ml/min/1.73 sqM); Albumin 4.4 g/dL (3.5-5.0); Alkaline Phosphatase 61 U/L (38-126); Amylase 33 U/L (30-110); Anion Gap 7 mmol/L; Blood Urea Nitrogen 9 mg/dL (7-17); Calcium 9.6 mg/dL (8.4-10.2); Carbon Dioxide 28 mmol/L (22-30); Chloride 99 mmol/L (98-107); Glucose 101 mg/dL (74-99); Lipase 32 U/L (23-300); Non-African American GFR(CKD) >90 (>60 ml/min/1.73 sqM); Potassium 3.6 mmol/L (3.5-5.1); Sodium 134 mmol/L (137-145); Total Bilirubin 1.1 mg/dL (0.2-1.3); Total Protein 6.7 g/dL (6.3-8.2)
[2024-03-10 17:40] LABS: Ketones,Urine 4+ (Negative)
[2024-03-10] MEDS ORDERED: cefTRIAXone IN SWFI 1,000 MG/10 ML SYRINGE IVP STA (17:54)
[2024-03-10 18:28] VITALS: BP 130/80; PULSE 90; RESP 18
== END 2024-03-10 18:39 | disposition home or self-care (01) ==
LOC: EC 16:15
DX: R11.2 Nausea with vomiting, unspecified (principal); N39.0 Urinary tract infection, site not specified; Z91.018 Allergy to other foods
CPT/HCPCS: 36415; 80053; 82150; 83690; 85025; 81001; 81025; 87086; 87077; 87186; 99284; 96374; 96375; 96361; J1200; J2405; J2470

== ENCOUNTER 2024-03-11 18:24 | Emergency (ER) | payer OTHER ==
--- NOTE | 2024-03-11 19:12 | ED ---
General Adult HPI - General Source: patient, RN notes reviewed <Tamra Maher - Last Filed: 03/11/24 19:11> <Rafael Park - Last Filed: 03/11/24 21:44> - General Stated complaint: N/V/D Time Seen by Provider: 03/11/24 18:41 - History of Present Illness Initial comments: Bart feldman is a 18-year-old female presenting to the emergency department for complaint of persistent nausea and vomiting over the past 3 days. Patient states that she has been seen in the emergency department multiple times for similar complaint and is requesting admission at this time. She is attempted to take Zofran outpatient with minimal relief of symptoms. (Tamra Maher) Dictation was produced using [employer] dictation software. please excuse any grammatical, word or spelling errors. Chief Complaint: 18-year-old female presents to the emergency department with nausea vomiting abdominal pain History of Present Illness: Patient is 18-year-old female this is her third vis it in overall. States she is here for nausea vomiting abdominal pain states she has some bilious vomiting. Patient states she has been having some eating trouble for the last several weeks. She has not follow-up with a specialist. Denies any fever, chills or night sweats. Patient denies . States that she recently quit daily marijuana use. States that since being in the emergency department her symptoms are significantly improved. The ROS documented in this emergency department record has been reviewed and confirmed by me. Those systems with pertinent positive or negative responses have been documented in the HPI. All other systems are other negative and/or noncontributory. (Rafael Park) - Related Data Previous Rx's Medication Instructions Recorded Metoclopramide [Reglan] 10 mg PO ACHS PRN #10 tab 12/07/23 Metoclopramide [Reglan] 10 mg PO TID PRN #15 tab 03/09/24 Ondansetron Odt [Zofran Odt] 4 mg PO Q8HR PRN #14 tab 03/09/24 Cephalexin [Keflex] 500 mg PO Q6HR #40 cap 03/10/24 Ondansetron Odt [Zofran Odt] 4 mg PO Q8HR PRN #24 tab 03/11/24 Allergies Allergy/AdvReac Type Severity Reaction Status Date / Time corn Allergy Unknown Verified 03/11/24 19:19 Review of Systems ROS Other: All systems not noted in ROS Statement are negative. <Tamra Maher - Last Filed: 03/11/24 19:11> ROS Other: All systems not noted in ROS Statement are negative. <Rafael Park - Last Filed: 03/11/24 21:44> ROS Statement: Those systems with pertinent positive or pertinent negative responses have been documented in the HPI. Past Medical History Past Medical History: No Reported History History of Any Multi-Drug Resistant Organisms: None Reported Past Surgical History: No Surgical Hx Reported Past Psychological History: Bipolar, Depression Smoking Status: Never smoker Past Alcohol Use History: Occasional Past Drug Use History: Marijuana <Tamra Maher - Last Filed: 03/11/24 19:11> General Exam <Tamra Maher - Last Filed: 03/11/24 19:11> <Rafael Park - Last Filed: 03/11/24 21:44> - General Exam Comments Initial Comments: Visual Physical Exam Vital signs reviewed General: Well-appearing, nontoxic, no acute distress. Head: Normocephalic, atraumatic Eyes: PERRLA, EOMI ENT: Airway patent Chest: Nonlabored breathing Skin: No visual rash, normal skin tone Neuro: Alert and oriented 3 Musculoskeletal: No gross abnormalities (Tamra Maher) PHYSICAL EXAM: General Impression: Alert and oriented x3, not in acute distress HEENT: Normocephalic atraumatic, extra-ocular movements intact, pupils equal and reactive to light bilaterally, mucous membranes moist. Cardiovascular: Heart regular rate and rhythm Chest: Able to complete full sentences, no retractions, no tachypnea Abdomen: abdomen soft, non-tender, non-distended, no organomegaly Musculoskeletal: Pulses present and equal in all extremities, no peripheral edema Motor: no focal deficits noted Neurological: CN II-XII grossly intact, no focal motor or sensory deficits noted Skin: Intact with no visualized rashes Psych: Normal affect and mood (Rafael Park) Course Vital Signs 03/11/24 19:19 Temperature 98.3 F Pulse Rate 64 Respiratory 18 Rate Blood Pressure 108/70 O2 Sat by Pulse 96 Oximetry Medical Decision Making <Tamra Maher - Last Filed: 03/11/24 19:11> - Lab Data Result diagrams: 03/11/24 19:48 03/11/24 19:48 <Rafael Park - Last Filed: 03/11/24 21:44> - Medical Decision Making I completed the quick note portion of this chart signed Tamra Maher PA-C (Tamra Maher) Was pt. sent in by a medical professional or institution ([facility] Reynoso, BIOCHEMISTRY TECHNICIAN, urgent care, hospital, or fdc...) When possible be specific @ -No Did you speak to anyone other than the patient for history (EMS, parent, family, police, friend...)? What history was obtained from this source @ -No Did you review nursing and triage notes (agree or disagree)? Why? @ -I reviewed and agree with nursing and triage notes Were old charts reviewed (outside hosp., previous admission, EMS record, old EKG, old radiological studies, urgent care reports/EKG's, fdc records)? Report findings @ -No old charts were reviewed Differential Diagnosis (chest pain, altered mental status, abdominal pain women, abdominal pain men, vaginal bleeding, musculoskeletal, weakness, fever, dyspnea, syncope, headache, dizziness, GI bleed, back pain, seizure, CVA, palpatations, mental health)? @ -Differential Abdominal Pain Women: Appendicitis, Cholecystitis, diverticulosis, ischemic bowel, pancreatitis, hepatitis, UTI, gastroenteritis, AAA, incarcerated hernia, bowel obstruction, constipation, inflammatory bowel, hepatitis, peptic ulcer disease, splenic infarction, perforated viscus, vulvitis, ovarian torsion, PID, kidney stone, placenta abruption, this is not meant to be an all-inclusive list EKG interpreted by me (3pts min.). @ -None done X-rays interpreted by me (1pt min.). @ -None done CT interpreted by me (1pt min.). @ -None done U/S interpreted by me (1pt. min.). @ -None done What testing was considered but not performed or refused? (CT, X-rays, U/S, labs)? Why? @ -None What meds were considered but not given or refused? Why? @ -None Was smoking cessation discussed for >3mins.? @ -No Were there social determinants of health that impacted care today? How? (Homelessness, low income, unemployed, alcoholism, drug addiction, transportation, low edu. Level, literacy, decrease access to med. care, senior care, rehab)? @ -No Was there de-escalation of care discussed even if they declined (Discuss DNR or withdrawal of care, Hospice)? DNR status @ -No What co-morbidities impacted this encounter? (DM, HTN, Smoking, COPD, CAD, Cancer, CVA, ARF, Chemo, Hep., AIDS, mental health diagnosis, sleep apnea, morbid obesity)? @ -None Was patient admitted / discharged? Hospital course, mention meds given and route, prescriptions, significant lab abnormalities, going to OR and other pertinent info. @ -1-year-old female presents to the emergency department for 36 arrival for chief complaint of nausea vomiting abdominal pain. She also complains of diarrhea states that she may have chronic issues for the last several days. This is her third visit here in the last 3 days. Vital signs stable. Patient well-appearing at the bedside. Physical examination benign. Patient not in any acute distress. Her abdomen is soft and benign. Laboratory evaluation is u nremarkable. Urinalysis negative. Patient offered observation admission however due to hospital volume and lack of open beds she preferred to be discharged because she does not want to be held in the hallway. I believe this is reasonable disposition. She is given a referral to a tape duplicator and given return precautions. Did you discuss the management of the patient with other professionals (professionals i.e. , PA, BIOCHEMISTRY TECHNICIAN, lab, RT, psych nurse, manager social work, family lawyer, teacher, special weapons and tactics officer, gearcase assembler)? Give summary @ -No Was critical care preformed (if so, how long)? @ -No Undiagnosed new problem with uncertain prognosis? @ -No Drug Therapy requiring intensive monitoring for toxicity (Heparin, Nitro, Insulin, Cardizem)? @ -No Were any procedures done? @ -No Diagnosis/symptom? Acute, or Chronic, or Acute on Chronic? Uncomplicated (without systemic symptoms) or Complicated (systemic symptoms)? @ -Nausea, vomiting, no high risk features Side effects of treatment? @ -No Exacerbation, Progression, or Severe Exacerbation? @ -No Poses a threat to life or bodily function? How? (Chest pain, [place], [place], pneumonia, PE, COPD, DKA, ARF, appy, cholecystitis, CVA, Diverticulitis, Homicidal, Suicidal, threat to staff... and all critical care pts) @ -No (Rafael Park) - Lab Data Lab Results 03/11/24 03/11/24 03/11/24 Range/Units 19:38 19:38 19:48 WBC 8.6 (4.0-11.0) k/uL RBC 4.73 (3.80-5.40) m/uL Hgb 14.0 (11.4-16.0) gm/dL Hct 41.8 (34.0-46.0) % MCV 88.4 (80.0-100.0) fL MCH 29.6 (25.0-35.0) pg MCHC 33.5 (31.0-37.0) g/dL RDW 12.5 (11.5-15.5) % Plt Count 234 (150-450) k/uL MPV 7.5 Neutrophils % 69 % Lymphocytes % 22 % Monocytes % 8 % Eosinophils % 0 % Basophils % 0 % Neutrophils # 6.0 (1.3-7.7) k/uL Lymphocytes # 1.9 (1.0-4.8) k/uL Monocytes # 0.7 (0-1.0) k/uL Eosinophils # 0.0 (0-0.7) k/uL Basophils # 0.0 (0-0.2) k/uL Sodium (137-145) mmol/L Potassium (3.5-5.1) mmol/L Chloride (98-107) mmol/L Carbon Dioxide (22-30) mmol/L Anion Gap mmol/L BUN (7-17) mg/dL Creatinine (0.52-1.04) mg/dL Est GFR (CKD-EPI)AfAm (>60 ml/min/1.73 sqM) Est GFR (CKD-EPI)NonAf (>60 ml/min/1.73 sqM) Glucose (74-99) mg/dL Calcium (8.4-10.2) mg/dL Total Bilirubin (0.2-1.3) mg/dL AST (14-36) U/L ALT (4-34) U/L Alkaline Phosphatase (38-126) U/L Total Protein (6.3-8.2) g/dL Albumin (3.5-5.0) g/dL Lipase (23-300) U/L Urine Color Light Yellow Urine Appearance Turbid H (Clear) Urine pH 6.5 (5.0-8.0) Ur Specific [place] 1.022 (1.001-1.035) Urine Protein Trace H (Negative) Urine Glucose (UA) Negative (Negative) Urine Ketones 4+ H (Negative) Urine Blood Negative (Negative) Urine Nitrite Negative (Negative) Urine Bilirubin Negative (Negative) Urine Urobilinogen 3.0 (<2.0) mg/dL Ur Leukocyte Esterase Negative (Negative) Urine RBC 1 (0-5) /hpf Urine WBC 4 (0-5) /hpf Ur Squamous Epith Cells 3 (0-4) /hpf Urine Bacteria Rare H (None) /hpf Urine Mucus Occasional H (None) /hpf Urine Yeast (Budding) Many H (None) /hpf Urine HCG, Qual Not Detected (Not Detectd) 03/11/24 Range/Units 19:48 WBC (4.0-11.0) k/uL RBC (3.80-5.40) m/uL Hgb (11.4-16.0) gm/dL Hct (34.0-46.0) % MCV (80.0-100.0) fL MCH (25.0-35.0) pg MCHC (31.0-37.0) g/dL RDW (11.5-15.5) % Plt Count (150-450) k/uL MPV Neutrophils % % Lymphocytes % % Monocytes % % Eosinophils % % Basophils % % Neutrophils # (1.3-7.7) k/uL Lymphocytes # (1.0-4.8) k/uL Monocytes # (0-1.0) k/uL Eosinophils # (0-0.7) k/uL Basophils # (0-0.2) k/uL Sodium 138 (137-145) mmol/L Potassium 3.3 L (3.5-5.1) mmol/L Chloride 98 (98-107) mmol/L Carbon Dioxide 30 (22-30) mmol/L Anion Gap 10 mmol/L BUN 8 (7-17) mg/dL Creatinine 0.76 (0.52-1.04) mg/dL Est GFR (CKD-EPI)AfAm >90 (>60 ml/min/1.73 sqM) Est GFR (CKD-EPI)NonAf >90 (>60 ml/min/1.73 sqM) Glucose 86 (74-99) mg/dL Calcium 9.9 (8.4-10.2) mg/dL Total Bilirubin 1.3 (0.2-1.3) mg/dL AST 16 (14-36) U/L ALT 10 (4-34) U/L Alkaline Phosphatase 60 (38-126) U/L Total Protein 7.1 (6.3-8.2) g/dL Albumin 4.6 (3.5-5.0) g/dL Lipase 40 (23-300) U/L Urine Color Urine Appearance (Clear) Urine pH (5.0-8.0) Ur Specific [place] (1.001-1.035) Urine Protein (Negative) Urine Glucose (UA) (Negative) Urine Ketones (Negative) Urine Blood (Negative) Urine Nitrite (Negative) Urine Bilirubin (Negative) Urine Urobilinogen (<2.0) mg/dL Ur Leukocyte Esterase (Negative) Urine RBC (0-5) /hpf Urine WBC (0-5) /hpf Ur Squamous Epith Cells (0-4) /hpf Urine Bacteria (None) /hpf Urine Mucus (None) /hpf Urine Yeast (Budding) (None) /hpf Urine HCG, Qual (Not Detectd) Disposition <Tamra Maher - Last Filed: 03/11/24 19:11> Is patient prescribed a controlled substance at d/c from ED?: No Time of Disposition: 21:44 <Rafael Park - Last Filed: 03/11/24 21:44> Clinical Impression: Enteritis Disposition: HOME SELF-CARE Condition: Fair Instructions (If sedation given, give patient instructions): Acute Nausea and Vomiting (ED) Prescriptions: Ondansetron Odt [Zofran Odt] 4 mg PO Q8HR PRN #24 tab PRN Reason: nausea, vomiting Referrals: Ulises Barraza DO [Primary Care Provider] - 1-2 days Nichole Silva MD [STAFF PHYSICIAN] - 1-2 days
[2024-03-11 19:23] VITALS: BP 108/70; PULSE 64; RESP 18; TEMP 98.3
[2024-03-11 20:17] LABS: Basophils % (A) 0 %; Eosinophils % (A) 0 %; HCT 41.8 % (34.0-46.0); Lymphocytes # (A) 1.9 k/uL (1.0-4.8); Lymphocytes % (A) 22 %; MCH 29.6 pg (25.0-35.0); MCHC 33.5 g/dL (31.0-37.0); MCV 88.4 fL (80.0-100.0); Mean Platelet Volume 7.5; Monocytes # (A) 0.7 k/uL (0-1.0); Monocytes % (A) 8 %; Neutrophils % (A) 69 %; Platelet Count 234 k/uL (150-450); RBC 4.73 m/uL (3.80-5.40); RDW 12.5 % (11.5-15.5); WBC 8.6 k/uL (4.0-11.0)
[2024-03-11 20:31] LABS: Appearance,Urine Turbid (Clear); Bacteria,Urine Rare /hpf; Bilirubin,Urine Negative (Negative); Blood,Urine Negative (Negative); Budding Yeast,Urine Many /hpf; Color,Urine Light Yellow; Glucose,Urine (UA) Negative (Negative); Ketones,Urine 4+ (Negative); Leukocyte Esterase,Urine Negative (Negative); Mucus,Urine Occasional /hpf; Nitrite,Urine Negative (Negative); PH, Urine 6.5 (5.0-8.0); Protein,Urine Trace (Negative); RBC,Urine 1 /hpf (0-5); Specific Gravity,Urine 1.022 (1.001-1.035); Squamous Epithelial Cell,Urine 3 /hpf (0-4); WBC,Urine 4 /hpf (0-5)
[2024-03-11 20:42] LABS: ALT 10 U/L (4-34); AST 16 U/L (14-36); African American GFR (CKD) >90 (>60 ml/min/1.73 sqM); Albumin 4.6 g/dL (3.5-5.0); Alkaline Phosphatase 60 U/L (38-126); Anion Gap 10 mmol/L; Blood Urea Nitrogen 8 mg/dL (7-17); Calcium 9.9 mg/dL (8.4-10.2); Carbon Dioxide 30 mmol/L (22-30); Chloride 98 mmol/L (98-107); Glucose 86 mg/dL (74-99); Lipase 40 U/L (23-300); Non-African American GFR(CKD) >90 (>60 ml/min/1.73 sqM); Potassium 3.3 mmol/L (3.5-5.1); Sodium 138 mmol/L (137-145); Total Bilirubin 1.3 mg/dL (0.2-1.3); Total Protein 7.1 g/dL (6.3-8.2)
== END 2024-03-11 22:24 | disposition home or self-care (01) ==
LOC: EC 18:24
DX: K52.9 Noninfective gastroenteritis and colitis, unspecified (principal); Z91.018 Allergy to other foods
CPT/HCPCS: 36415; 80053; 81001; 81025; 83690; 85025; 99284

== ENCOUNTER 2024-08-15 06:37 | Emergency (ER) | payer BC, OTHER ==
[2024-08-15 06:56] VITALS: TEMP 98.5
--- NOTE | 2024-08-15 07:11 | ED ---
Nausea/Vomiting/Diarrhea HPI - General Chief complaint: Nausea/Vomiting/Diarrhea Stated complaint: NV Time Seen by Provider: 08/15/24 06:58 Source: patient, RN notes reviewed Mode of arrival: ambulatory Limitations: no limitations - History of Present Illness Initial comments: This is a 19-year-old female who presents to the emergency department for nausea and vomiting. States that it started 2 days ago. This has been a recurrent issue for her for the last several months. It was proposed that it may be related to her marijuana use. States that she smokes marijuana several times a day, but has never stopped to see if it would improve the nausea and vomiting. She most recently smoked marijuana yesterday. She has generalized abdominal discomfort from all of the vomiting. Denies any changes in bowel or bladder habits. Denies any fevers/chills or sick contacts. She believes the last time she was here the Zofran seemed to work better for her for the nausea, but she is not sure. MD complaint: nausea, vomiting - Related Data Previous Rx's Medication Instructions Recorded Metoclopramide [Reglan] 10 mg PO ACHS PRN #10 tab 12/07/23 Metoclopramide [Reglan] 10 mg PO TID PRN #15 tab 03/09/24 Ondansetron Odt [Zofran Odt] 4 mg PO Q8HR PRN #14 tab 03/09/24 Cephalexin [Keflex] 500 mg PO Q6HR #40 cap 03/10/24 Ondansetron Odt [Zofran Odt] 4 mg PO Q8HR PRN #24 tab 03/11/24 Metoclopramide [Reglan] 10 mg PO Q6H PRN #20 tab 08/15/24 Ondansetron Odt [Zofran Odt] 4 mg PO Q8HR PRN #20 tab 08/15/24 Allergies Allergy/AdvReac Type Severity Reaction Status Date / Time corn Allergy Unknown Verified 08/15/24 06:53 Review of Systems ROS Statement: Those systems with pertinent positive or pertinent negative responses have been documented in the HPI. ROS Other: All systems not noted in ROS Statement are negative. Past Medical History Past Medical History: No Reported History History of Any Multi-Drug Resistant Organisms: None Reported Past Surgical History: No Surgical Hx Reported Past Psychological History: Bipolar, Depression Smoking Status: Never smoker Past Alcohol Use History: Occasional Past Drug Use History: Marijuana General Exam Limitations: no limitations General appearance: alert, in no apparent distress Head exam: Present: atraumatic, normocephalic, normal inspection Respiratory exam: Present: normal lung sounds bilaterally. Absent: respiratory distress, wheezes, rales, rhonchi, stridor Cardiovascular Exam: Present: regular rate, normal rhythm GI/Abdominal exam: Present: soft. Absent: distended, tenderness Neurological exam: Present: alert, oriented X3, CN II-XII intact Psychiatric exam: Present: normal affect, normal mood Skin exam: Present: warm, dry, intact, normal color. Absent: rash Course Vital Signs 08/15/24 08/15/24 08/15/24 06:54 09:13 10:40 Temperature 98.5 F Pulse Rate 85 70 79 Respiratory 19 18 18 Rate Blood Pressure 131/90 109/77 103/62 O2 Sat by Pulse 99 99 99 Oximetry Medical Decision Making - Medical Decision Making This is a 19-year-old female who presents to the emergency department for nausea and vomiting. Was pt. sent in by a medical professional or institution? @ -No Did you speak to anyone other than the patient for history? @ -No Did you review nursing and triage notes? @ -Yes, and I agree, it is accurate with regards to the patient's symptoms. Were old charts reviewed? @ -No Differential Diagnosis? @ -Differential Nausea and Vomiting: Gastroenteritis, cholecystitis, appendicitis, pancreatitis, migraine, benign positional vertigo, food borne illness, pyelonephritis, irritable bowel syndrome, influenza, Covid, GERD, incarcerated hernia, intestinal obstruction, this is not meant to be an all-inclusive list. EKG interpreted by me (3pts min.)? @ -Not obtained X-rays interpreted by me (1pt min.)? @ -Not obtained CT interpreted by me (1pt min.)? @ -Not obtained U/S interpreted by me (1pt. min.)? @ -Not obtained What testing was considered but not performed? (CT, X-rays, U/S, labs)? Why? @ -None What meds were considered but not given? Why? @ -None Did you discuss the management of the patient with other professionals? @ -No Did you reconcile home meds? @ -No Was smoking cessation discussed for >3mins.? @ -No Was critical care preformed (if so, how long)? @ -No Were there social determinants of health that impacted care today? How? (Homelessness, low income, unemployed, alcoholism, drug addiction, transportation, low edu. Level, literacy, decrease access to med. care, prison, rehab)? @ -Marijuana use, potentially contributing to the nausea and vomiting. Was there de-escalation of care discussed even if they declined? (Discuss DNR or withdrawal of care, Hospice)? @ -No What co-morbidities impacted this encounter? (DM, HTN, Smoking, COPD, CAD, Cancer, CVA, Hep., AIDS, mental health diagnosis, sleep apnea, morbid obesity)? @ -Marijuana use Was patient admitted / discharged? @ -Discharged. Lab work demonstrates mild leukocytosis with a white blood cell count of 11.5. She also has mild hypokalemia with a potassium of 3.3. Lab work was otherwise unremarkable. She was treated with IV fluids, Zofran, Benadryl, and famotidine. She had some improvement in nausea, however it was still present. She was then given a dose of Compazine which she felt was more effective than the Zofran, however she had mild residual nausea. She was then given a dose of Reglan. Patient did not tolerate oral intake for potassium re placement and was instead given 20 mEq of IVPB potassium chloride. She did feel like the Reglan helped more than the other medications. At that point she was comfortable with discharge home. Reglan and Zofran prescribed for further management. Advised avoiding marijuana use for the meantime as well and following up with her primary care provider. Patient discharged home in stable condition. Case discussed with ED attending Dr. Dalton. Return precautions reviewed in depth, the patient is instructed to return to the emergency department with any new, worsening, or concerning symptoms. Patient verbalized understanding. Undiagnosed new problem with uncertain prognosis? @ -None Drug Therapy requiring intensive monitoring for toxicity (Heparin, Nitro, Insulin, Cardizem)? @ -None Were any procedures done? @ -None Diagnosis/symptom? @ -Nausea and vomiting Acute, or Chronic, or Acute on Chronic? @ -Acute Uncomplicated (without systemic symptoms) or Complicated (systemic symptoms)? @ -Uncomplicated Side effects of treatment? @ -None Exacerbation, Progression, or Severe Exacerbation] @ -Not applicable Poses a threat to life or bodily function? @ -No - Lab Data Result diagrams: 08/15/24 07:34 08/15/24 07:34 Lab Results 08/15/24 08/15/24 08/15/24 Range/Units 07:34 07:34 07:34 WBC 11.55 H (4.50-10.00) 10*3/uL RBC 4.55 (4.10-5.20) 10*6/uL Hgb 13.8 (12.0-15.0) g/dL Hct 39.8 (37.2-46.3) % MCV 87.5 (80.0-97.0) fL MCH 30.3 (27.0-32.0) pg MCHC 34.7 (32.0-37.0) g/dL Plt Count 238 (140-440) 10*3/uL MPV 9.4 L (9.5-12.2) fL Immature Gran % (Auto) 0.3 % Neutrophils % 74.9 % Lymphocytes % 17.2 % Monocytes % 6.6 % Eosinophils % 0.3 % Basophils % 0.7 % Immature Gran # 0.04 (0.00-0.04) 10*3/uL Neutrophils # 8.64 H (1.80-7.70) 10*3/uL Lymphocytes # 1.99 (0.90-5.00) 10*3/uL Monocytes # 0.76 (0.20-1.00) 10*3/uL Eosinophils # 0.04 (0.04-0.35) 10*3/uL Basophils # 0.08 (0.00-0.10) 10*3/uL Sodium 135 L (137-145) mmol/L Potassium 3.3 L (3.5-5.1) mmol/L Chloride 102 (98-107) mmol/L Carbon Dioxide 25 (22-30) mmol/L Anion Gap 8 mmol/L BUN 11 (7-17) mg/dL Creatinine 0.66 (0.52-1.04) mg/dL Est GFR (CKD-EPI)AfAm >90 (>60 ml/min/1.73 sqM) Est GFR (CKD-EPI)NonAf >90 (>60 ml/min/1.73 sqM) Glucose 116 H (74-99) mg/dL Plasma Lactic Acid Yasir 1.7 (0.7-2.0) mmol/L Calcium 9.6 (8.4-10.2) mg/dL Total Bilirubin 1.3 (0.2-1.3) mg/dL AST 18 (14-36) U/L ALT 11 (4-34) U/L Alkaline Phosphatase 68 (38-126) U/L Total Protein 7.5 (6.3-8.2) g/dL Albumin 4.7 (3.5-5.0) g/dL Amylase 40 (30-110) U/L Lipase 86 (23-300) U/L HCG, Qual Not Detected Disposition Clinical Impression: Nausea and vomiting Disposition: HOME SELF-CARE Instructions (If sedation given, give patient instructions): Acute Nausea and Vomiting (ED) Additional Instructions: Return to the emergency department with any new, worsening, or concerning symptoms. You can take the Zofran up to every 8 hours as needed for nausea and vomiting and the Reglan up to every 6 hours as needed for nausea and vomiting. You can apply the capsaicin cream provided to the abdomen up to 4 times daily to see if this eases discomfort. Try to avoid smoking marijuana for the next several days to see if that also helps and slowly advance your diet as tolerated and remain well hydrated. Follow up with your primary care provider in 1-2 days. Prescriptions: Metoclopramide [Reglan] 10 mg PO Q6H PRN #20 tab PRN Reason: Nausea And Vomiting Ondansetron Odt [Zofran Odt] 4 mg PO Q8HR PRN #20 tab PRN Reason: Nausea And Vomiting Is patient prescribed a controlled substance at d/c from ED?: No Referrals: Ulises Barraza DO [Primary Care Provider] - 1-2 days Time of Disposition: 09:58
[2024-08-15 07:44] LABS: Basophils # (A) 0.08 10*3/uL (0.00-0.10); Basophils % (A) 0.7 %; Eosinophils # (A) 0.04 10*3/uL (0.04-0.35); Eosinophils % (A) 0.3 %; HCT 39.8 % (37.2-46.3); HGB 13.8 g/dL (12.0-15.0); Lymphocytes # (A) 1.99 10*3/uL (0.90-5.00); Lymphocytes % (A) 17.2 %; MCH 30.3 pg (27.0-32.0); MCHC 34.7 g/dL (32.0-37.0); MCV 87.5 fL (80.0-97.0); Mean Platelet Volume 9.4 fL (9.5-12.2); Monocytes # (A) 0.76 10*3/uL (0.20-1.00); Monocytes % (A) 6.6 %; Neutrophils # (A) 8.64 10*3/uL (1.80-7.70); Neutrophils % (A) 74.9 %; Platelet Count 238 10*3/uL (140-440); RBC 4.55 10*6/uL (4.10-5.20); RDW 12.2 % (11.5-14.5); WBC 11.55 10*3/uL (4.50-10.00)
[2024-08-15] MEDS: ONDANSETRON 4 MG/2 ML VIAL IVP STA (07:56)
[2024-08-15 07:57] LABS: ALT 11 U/L (4-34); AST 18 U/L (14-36); African American GFR (CKD) >90 (>60 ml/min/1.73 sqM); Albumin 4.7 g/dL (3.5-5.0); Alkaline Phosphatase 68 U/L (38-126); Amylase 40 U/L (30-110); Anion Gap 8 mmol/L; Blood Urea Nitrogen 11 mg/dL (7-17); Calcium 9.6 mg/dL (8.4-10.2); Carbon Dioxide 25 mmol/L (22-30); Chloride 102 mmol/L (98-107); Glucose 116 mg/dL (74-99); Lipase 86 U/L (23-300); Non-African American GFR(CKD) >90 (>60 ml/min/1.73 sqM); Potassium 3.3 mmol/L (3.5-5.1); Sodium 135 mmol/L (137-145); Total Bilirubin 1.3 mg/dL (0.2-1.3); Total Protein 7.5 g/dL (6.3-8.2)
[2024-08-15] MEDS: FAMOTIDINE 20 MG/2 ML VIAL IV STA (07:57)
[2024-08-15] MEDS: diphenhydrAMINE 50 MG/ML 1 ML VIAL IVP STA (07:57)
[2024-08-15] MEDS: SODIUM CHLORIDE 0.9% 1,000 ML IV STA (07:59)
[2024-08-15] MEDS: CAPSAICIN 0.025% CREAM 60 GM TUBE TOPICAL STA (08:00)
[2024-08-15] MEDS: POTASSIUM CHLORIDE 20 MEQ in WATER FOR INJECTION 1 100ML.BAG IVPB STA (08:15)
[2024-08-15 08:22] LABS: HCG,Qualitative Serum Not Detected
[2024-08-15] MEDS: PROCHLORPERAZINE INJ 10 MG/2 ML VIAL IVP STA (08:55)
[2024-08-15 09:14] VITALS: RESP 18
[2024-08-15] MEDS: METOCLOPRAMIDE 5 MG/ML 2 ML VIAL IVP STA (09:32)
[2024-08-15] MEDS: SODIUM CHLORIDE 0.9% 1,000 ML IV ONE (09:53)
[2024-08-15 10:41] VITALS: BP 103/62; PULSE 79
== END 2024-08-15 10:41 | disposition home or self-care (01) ==
LOC: EC 06:37
DX: R11.2 Nausea with vomiting, unspecified (principal); F12.90 Cannabis use, unspecified, uncomplicated; Z91.018 Allergy to other foods
CPT/HCPCS: 36415; 80053; 82150; 83605; 83690; 85025; 84703; 99284; 96365; 96375; 96361; 96366; J1200; J0780; J2765; J3480; J2405; J1308

== ENCOUNTER 2024-08-18 06:28 | Emergency (ER) | payer BC, OTHER ==
[2024-08-18 06:37] VITALS: TEMP 98.6
--- NOTE | 2024-08-18 06:45 | ED ---
Nausea/Vomiting/Diarrhea HPI - General Chief complaint: Nausea/Vomiting/Diarrhea Stated complaint: NV Time Seen by Provider: 08/18/24 06:29 Source: patient, RN notes reviewed Mode of arrival: ambulatory - History of Present Illness Initial comments: 19-year-old female presenting to the emergency department the patient persistent nausea vomiting over the past 2 days. Reports that she has been having a difficult time keeping down foods and liquids. Patient was evaluated emergency department 2 days ago where she was prescribed Reglan that has been mildly helping with symptoms however states that she still feels nauseated. Patient reports to frequent and daily marijuana use. Denies previous surgical abdominal history. - Related Data Previous Rx's Medication Instructions Recorded Metoclopramide [Reglan] 10 mg PO ACHS PRN #10 tab 12/07/23 Metoclopramide [Reglan] 10 mg PO TID PRN #15 tab 03/09/24 Ondansetron Odt [Zofran Odt] 4 mg PO Q8HR PRN #14 tab 03/09/24 Cephalexin [Keflex] 500 mg PO Q6HR #40 cap 03/10/24 Ondansetron Odt [Zofran Odt] 4 mg PO Q8HR PRN #24 tab 03/11/24 Metoclopramide [Reglan] 10 mg PO Q6H PRN #20 tab 08/15/24 Ondansetron Odt [Zofran Odt] 4 mg PO Q8HR PRN #20 tab 08/15/24 Allergies Allergy/AdvReac Type Severity Reaction Status Date / Time corn Allergy Unknown Verified 08/18/24 06:37 Review of Systems ROS Statement: Those systems with pertinent positive or pertinent negative responses have been documented in the HPI. ROS Other: All systems not noted in ROS Statement are negative. Past Medical History Past Medical History: No Reported History History of Any Multi-Drug Resistant Organisms: None Reported Past Surgical History: No Surgical Hx Reported Past Psychological History: Bipolar, Depression Smoking Status: Never smoker Past Alcohol Use History: Occasional Past Drug Use History: Marijuana General Exam General appearance: alert, in no apparent distress Eye exam: Present: normal appearance, PERRL, EOMI. Absent: scleral icterus, conjunctival injection, periorbital swelling Neck exam: Present: normal inspection. Absent: tenderness, meningismus, lymphadenopathy Respiratory exam: Present: normal lung sounds bilaterally. Absent: respiratory distress, wheezes, rales, rhonchi, stridor Cardiovascular Exam: Present: regular rate, normal rhythm, normal heart sounds. Absent: systolic murmur, diastolic murmur, rubs, gallop, clicks GI/Abdominal exam: Present: soft, tenderness (epigastric), normal bowel sounds. Absent: distended, guarding, rebound, rigid Extremities exam: Present: normal inspection, full ROM, normal capillary refill. Absent: tenderness, pedal edema, joint swelling, calf tenderness Back exam: Present: normal inspection. Absent: CVA tenderness (R), CVA tenderness (L) Course Vital Signs 08/18/24 08/18/24 06:34 08:12 Temperature 98.6 F Pulse Rate 74 74 Respiratory 18 20 Rate Blood Pressure 119/82 130/87 O2 Sat by Pulse 97 97 Oximetry Medical Decision Making - Medical Decision Making Was pt. sent in by a medical professional or institution (, PA, STEAMING MACHINE OPERATOR, urgent care, hospital, or residential...) When possible be specific @ -No Did you speak to anyone other than the patient for history (EMS, parent, family, police, friend...)? What history was obtained from this source @ -No Did you review nursing and triage notes (agree or disagree)? Why? @ -I reviewed and agree with nursing and triage notes Were old charts reviewed (outside hosp., previous admission, EMS record, old EKG, old radiological studies, urgent care reports/EKG's, residential records)? Report findings @ -No old charts were reviewed Differential Diagnosis (chest pain, altered mental status, abdominal pain women, abdominal pain men, vaginal bleeding, weakness, fever, dyspnea, syncope, headache, dizziness, GI bleed, back pain, seizure, CVA, palpatations, mental health, musculoskeletal)? @ -Differential Abdominal Pain Women: Appendicitis, Cholecystitis, diverticulosis, ischemic bowel, pancreatitis, hepatitis, UTI, gastroenteritis, AAA, incarcerated hernia, bowel obstruction, constipation, inflammatory bowel, hepatitis, peptic ulcer disease, splenic infarction, perforated viscus, vulvitis, ovarian torsion, PID, kidney stone, placenta abruption, this is not meant to be an all-inclusive list EKG interpreted by me (3pts min.). @ -none X-rays interpreted by me (1pt min.). @ -None done CT interpreted by me (1pt min.). @ -None done U/S interpreted by me (1pt. min.). @ -None done What testing was considered but not performed or refused? (CT, X-rays, U/S, labs)? Why? @ -None What meds were considered but not given or refused? Why? @ -None Did you discuss the management of the patient with other professionals (professionals i.e. , PA, STEAMING MACHINE OPERATOR, lab, RT, psych nurse, public health social worker, unit supervisor, teacher, commanding officer garage, rn case manager)? Give summary @ -No Was smoking cessation discussed for >3mins.? @ -No Was critical care preformed (if so, how long)? @ -No Were there social determinants of health that impacted care today? How? (Homelessness, low income, unemployed, alcoholism, drug addiction, transportation, low edu. Level, literacy, decrease access to med. care, fdc, rehab)? @ -No Was there de-escalation of care discussed even if they declined (Discuss DNR or withdrawal of care, Hospice)? DNR status @ -No What co-morbidities impacted this encounter? (DM, HTN, Smoking, COPD, CAD, Cancer, CVA, ARF, Chemo, Hep., AIDS, mental health diagnosis, sleep apnea, morbid obesity)? @ -None Was patient admitted / discharged? Hospital course, mention meds given and route, prescriptions, significant lab abnormalities, going to OR and other pertinent info. @ -Discharge. 19-year-old female presents emergency room with persistent nausea, vomiting, epigastric abdominal pain. Patient's vitals are stable on arrival and overall she is well-appearing. Patient has mild epigastric tenderness to palpation. Patient's provided IV fluids, Reglan, Benadryl. Laboratory testing is remarkable for hypokalemia with a potassium of 3.0. Urinalysis no signs of infection, hCG is negative. Patient's urine drug screen is positive for THC. Patient provided with Zofran and patient states that abdominal pain and nausea have subsided. She is provided with oral resupplementation of potassium and is instructed to follow-up outpatient with primary care provider to reevaluate potassium within the next week. Return parameters have discussed. Case discussed with Dr. Bhatt Undiagnosed new problem with uncertain prognosis? @ -No Drug Therapy requiring intensive monitoring for toxicity (Heparin, Nitro, Insulin, Cardizem)? @ -No Were any procedures done? @ -No Diagnosis/symptom? @ -nausea and vomiting, Hypokalemia Acute, or Chronic, or Acute on Chronic? @ -Acute Uncomplicated (without systemic symptoms) or Complicated (systemic symptoms)? @ -Uncomplicated Side effects of treatment? @ -No Exacerbation, Progression, or Severe Exacerbation? @ -No Poses a threat to life or bodily function? How? (Chest pain, [place], [place], pneumonia, PE, COPD, DKA, ARF, appy, cholecystitis, CVA, Diverticulitis, Homicidal, Suicidal, threat to staff... and all critical care pts) @ -No - Lab Data Result diagrams: 08/18/24 06:56 08/18/24 06:56 Lab Results 08/18/24 08/18/24 08/18/24 Range/Units 06:56 06:56 07:46 WBC 9.49 (4.50-10.00) 10*3/uL RBC 4.55 (4.10-5.20) 10*6/uL Hgb 13.6 (12.0-15.0) g/dL Hct 39.1 (37.2-46.3) % MCV 85.9 (80.0-97.0) fL MCH 29.9 (27.0-32.0) pg MCHC 34.8 (32.0-37.0) g/dL Plt Count 257 (140-440) 10*3/uL MPV 9.5 (9.5-12.2) fL Immature Gran % (Auto) 0.3 % Neutrophils % 66.1 % Lymphocytes % 23.5 % Monocytes % 9.4 % Eosinophils % 0.3 % Basophils % 0.4 % Immature Gran # 0.03 (0.00-0.04) 10*3/uL Neutrophils # 6.27 (1.80-7.70) 10*3/uL Lymphocytes # 2.23 (0.90-5.00) 10*3/uL Monocytes # 0.89 (0.20-1.00) 10*3/uL Eosinophils # 0.03 L (0.04-0.35) 10*3/uL Basophils # 0.04 (0.00-0.10) 10*3/uL Sodium 133 L (137-145) mmol/L Potassium 3.0 L (3.5-5.1) mmol/L Chloride 96 L (98-107) mmol/L Carbon Dioxide 26 (22-30) mmol/L Anion Gap 11 mmol/L BUN 6 L (7-17) mg/dL Creatinine 0.70 (0.52-1.04) mg/dL Est GFR (CKD-EPI)AfAm >90 (>60 ml/min/1.73 sqM) Est GFR (CKD-EPI)NonAf >90 (>60 ml/min/1.73 sqM) Glucose 105 H (74-99) mg/dL Calcium 10.1 (8.4-10.2) mg/dL Total Bilirubin 1.7 H (0.2-1.3) mg/dL AST 17 (14-36) U/L ALT 11 (4-34) U/L Alkaline Phosphatase 67 (38-126) U/L Total Protein 7.2 (6.3-8.2) g/dL Albumin 4.5 (3.5-5.0) g/dL Lipase 55 (23-300) U/L Urine Color Yellow Urine Appearance Turbid H (Clear) Urine pH 8.0 (5.0-8.0) Ur Specific [place] 1.015 (1.001-1.035) Urine Protein Negative (Negative) Urine Glucose (UA) Negative (Negative) Urine Ketones Trace H (Negative) Urine Blood Negative (Negative) Urine Nitrite Negative (Negative) Urine Bilirubin Negative (Negative) Urine Urobilinogen 2.0 (<2.0) mg/dL Ur Leukocyte Esterase Negative (Negative) Ur Squamous Epith Cells 1 (0-4) /hpf Urine Bacteria Rare H (None) /hpf Urine Mucus Occasional H (None) /hpf Urine HCG, Qual (Not Detectd) Urine Opiates Screen Not Detected (NotDetected) Ur Oxycodone Screen Not Detected (NotDetected) Urine Methadone Screen Not Detected (NotDetected) Ur Barbiturates Screen Not Detected (NotDetected) U Tricyclic Antidepress Not Detected (NotDetected) Ur Phencyclidine Scrn Not Detected (NotDetected) Ur Amphetamines Screen Not Detected (NotDetected) U Methamphetamines Scrn Not Detected (NotDetected) U Benzodiazepines Scrn Not Detected (NotDetected) Urine Cocaine Screen Not Detected (NotDetected) U Marijuana (THC) Screen Detected H (NotDetected) 08/18/24 Range/Units 07:46 WBC (4.50-10.00) 10*3/uL RBC (4.10-5.20) 10*6/uL Hgb (12.0-15.0) g/dL Hct (37.2-46.3) % MCV (80.0-97.0) fL MCH (27.0-32.0) pg MCHC (32.0-37.0) g/dL Plt Count (140-440) 10*3/uL MPV (9.5-12.2) fL Immature Gran % (Auto) % Neutrophils % % Lymphocytes % % Monocytes % % Eosinophils % % Basophils % % Immature Gran # (0.00-0.04) 10*3/uL Neutrophils # (1.80-7.70) 10*3/uL Lymphocytes # (0.90-5.00) 10*3/uL Monocytes # (0.20-1.00) 10*3/uL Eosinophils # (0.04-0.35) 10*3/uL Basophils # (0.00-0.10) 10*3/uL Sodium (137-145) mmol/L Potassium (3.5-5.1) mmol/L Chloride (98-107) mmol/L Carbon Dioxide (22-30) mmol/L Anion Gap mmol/L BUN (7-17) mg/dL Creatinine (0.52-1.04) mg/dL Est GFR (CKD-EPI)AfAm (>60 ml/min/1.73 sqM) Est GFR (CKD-EPI)NonAf (>60 ml/min/1.73 sqM) Glucose (74-99) mg/dL Calcium (8.4-10.2) mg/dL Total Bilirubin (0.2-1.3) mg/dL AST (14-36) U/L ALT (4-34) U/L Alkaline Phosphatase (38-126) U/L Total Protein (6.3-8.2) g/dL Albumin (3.5-5.0) g/dL Lipase (23-300) U/L Urine Color Urine Appearance (Clear) Urine pH (5.0-8.0) Ur Specific [place] (1.001-1.035) Urine Protein (Negative) Urine Glucose (UA) (Negative) Urine Ketones (Negative) Urine Blood (Negative) Urine Nitrite (Negative) Urine Bilirubin (Negative) Urine Urobilinogen (<2.0) mg/dL Ur Leukocyte Esterase (Negative) Ur Squamous Epith Cells (0-4) /hpf Urine Bacteria (None) /hpf Urine Mucus (None) /hpf Urine HCG, Qual Not Detected (Not Detectd) Urine Opiates Screen (NotDetected) Ur Oxycodone Screen (NotDetected) Urine Methadone Screen (NotDetected) Ur Barbiturates Screen (NotDetected) U Tricyclic Antidepress (NotDetected) Ur Phencyclidine Scrn (NotDetected) Ur Amphetamines Screen (NotDetected) U Methamphetamines Scrn (NotDetected) U Benzodiazepines Scrn (NotDetected) Urine Cocaine Screen (NotDetected) U Marijuana (THC) Screen (NotDetected) Disposition Clinical Impression: Nausea and vomiting, Hypokalemia Disposition: HOME SELF-CARE Condition: Stable Instructions (If sedation given, give patient instructions): Potassium Content of Foods List (ED), Hypokalemia (ED), Acute Nausea and Vomiting (ED) Additional Instructions: Please return to the Emergency Department if symptoms worsen or any other concerns. Please follow primary care provider this week to be checked your potassium. Is patient prescribed a controlled substance at d/c from ED?: No Referrals: Ulises Barraza DO [Primary Care Provider] - 1-2 days Time of Disposition: 08:48
[2024-08-18 07:02] LABS: Basophils # (A) 0.04 10*3/uL (0.00-0.10); Basophils % (A) 0.4 %; Eosinophils # (A) 0.03 10*3/uL (0.04-0.35); Eosinophils % (A) 0.3 %; HCT 39.1 % (37.2-46.3); HGB 13.6 g/dL (12.0-15.0); Lymphocytes # (A) 2.23 10*3/uL (0.90-5.00); Lymphocytes % (A) 23.5 %; MCH 29.9 pg (27.0-32.0); MCHC 34.8 g/dL (32.0-37.0); MCV 85.9 fL (80.0-97.0); Mean Platelet Volume 9.5 fL (9.5-12.2); Monocytes # (A) 0.89 10*3/uL (0.20-1.00); Monocytes % (A) 9.4 %; Neutrophils # (A) 6.27 10*3/uL (1.80-7.70); Neutrophils % (A) 66.1 %; Platelet Count 257 10*3/uL (140-440); RBC 4.55 10*6/uL (4.10-5.20); RDW 12.1 % (11.5-14.5); WBC 9.49 10*3/uL (4.50-10.00)
[2024-08-18] MEDS: METOCLOPRAMIDE 5 MG/ML 2 ML VIAL IVP STA (07:13)
[2024-08-18] MEDS: SODIUM CHLORIDE 0.9% 1,000 ML IV STA (07:13)
[2024-08-18 07:15] LABS: ALT 11 U/L (4-34); AST 17 U/L (14-36); African American GFR (CKD) >90 (>60 ml/min/1.73 sqM); Albumin 4.5 g/dL (3.5-5.0); Alkaline Phosphatase 67 U/L (38-126); Anion Gap 11 mmol/L; Blood Urea Nitrogen 6 mg/dL (7-17); Calcium 10.1 mg/dL (8.4-10.2); Carbon Dioxide 26 mmol/L (22-30); Chloride 96 mmol/L (98-107); Glucose 105 mg/dL (74-99); Lipase 55 U/L (23-300); Non-African American GFR(CKD) >90 (>60 ml/min/1.73 sqM); Sodium 133 mmol/L (137-145); Total Bilirubin 1.7 mg/dL (0.2-1.3); Total Protein 7.2 g/dL (6.3-8.2)
[2024-08-18] MEDS: PANTOPRAZOLE 40 MG/10 ML VIAL IVP STA (07:15)
[2024-08-18] MEDS: diphenhydrAMINE 50 MG/ML 1 ML VIAL IVP STA (07:18)
[2024-08-18] MEDS: ONDANSETRON 4 MG/2 ML VIAL IVP STA (08:12)
[2024-08-18 08:22] LABS: Appearance,Urine Turbid (Clear); Bacteria,Urine Rare /hpf; Bilirubin,Urine Negative (Negative); Blood,Urine Negative (Negative); Color,Urine Yellow; Glucose,Urine (UA) Negative (Negative); Ketones,Urine Trace (Negative); Leukocyte Esterase,Urine Negative (Negative); Mucus,Urine Occasional /hpf; Nitrite,Urine Negative (Negative); Protein,Urine Negative (Negative); Specific Gravity,Urine 1.015 (1.001-1.035); Squamous Epithelial Cell,Urine 1 /hpf (0-4)
[2024-08-18 08:23] LABS: Amphetamine Screen,Urine Not Detected (NotDetected); Barbiturate Screen,Urine Not Detected (NotDetected); Benzodiazepines Screen,Urine Not Detected (NotDetected); Cocaine Screen,Urine Not Detected (NotDetected); Methadone Screen, Urine Not Detected (NotDetected); Opiate Screen,Urine Not Detected (NotDetected); Oxycodone Screen, Urine Not Detected (NotDetected); Phencyclidine Screen,Urine Not Detected (NotDetected); Tricyclic Antidepressant,Urine Not Detected (NotDetected); Urn Cannabinoid Scrn Detected (NotDetected)
[2024-08-18] MEDS: POTASSIUM CHLORIDE ER 20 MEQ TAB.ER PO STA ×2 (09:09)
[2024-08-18 09:19] VITALS: BP 113/71; PULSE 84; RESP 16
== END 2024-08-18 09:19 | disposition home or self-care (01) ==
LOC: EC 06:28
DX: R11.2 Nausea with vomiting, unspecified (principal); E87.6 Hypokalemia; Z91.018 Allergy to other foods
CPT/HCPCS: 36415; 80053; 83690; 85025; 81001; 81025; 80306; 99284; 96374; 96375; 96361; J1200; J2765; J2405; J2470

== ENCOUNTER 2024-08-18 15:24 | Emergency (ER) | payer BC, OTHER ==
--- NOTE | 2024-08-18 16:09 | ED ---
General Adult HPI - General Source: patient Mode of arrival: ambulatory Limitations: no limitations <Lucas Diaz - Last Filed: 08/18/24 16:08> - General Source: patient, RN notes reviewed, old records reviewed Mode of arrival: ambulatory Limitations: no limitations - History of Present Illness -: days(s) Location: abdomen Severity scale (1-10): 3 Consistency: colicky Improves with: none Worsens with: none Associated Symptoms: loss of appetite, malaise, nausea/vomiting Treatments Prior to Arrival: none <Donis Almazan - Last Filed: 08/19/24 23:51> - General Chief complaint: Nausea/Vomiting/Diarrhea Stated complaint: Nausea Time Seen by Provider: 08/18/24 15:37 - History of Present Illness Initial comments: Quick note: This is a 19-year-old female presenting for nausea/vomiting. Patient states she was seen in ER earlier today for similar symptoms, stated she was feeling better for several hours following discharge before she began feeling nauseous again. Patient otherwise denies any new symptoms since last time she was seen here earlier today. (Lucas Diaz) This is a 19-year-old female to ER for nausea vomiting severe nausea vomiting here in the emergency room with history of marijuana related cyclic vomiting syndrome (Donis Almazan) - Related Data Previous Rx's Medication Instructions Recorded Metoclopramide [Reglan] 10 mg PO ACHS PRN #10 tab 12/07/23 Metoclopramide [Reglan] 10 mg PO TID PRN #15 tab 03/09/24 Ondansetron Odt [Zofran Odt] 4 mg PO Q8HR PRN #14 tab 03/09/24 Cephalexin [Keflex] 500 mg PO Q6HR #40 cap 03/10/24 Ondansetron Odt [Zofran Odt] 4 mg PO Q8HR PRN #24 tab 03/11/24 Metoclopramide [Reglan] 10 mg PO Q6H PRN #20 tab 08/15/24 Ondansetron Odt [Zofran Odt] 4 mg PO Q8HR PRN #20 tab 08/15/24 Promethazine Suppository 25 mg RECTAL QID PRN #24 supp 08/19/24 [Phenergan] Allergies Allergy/AdvReac Type Severity Reaction Status Date / Time corn Allergy Unknown Verified 08/19/24 20:56 Review of Systems ROS Other: All systems not noted in ROS Statement are negative. <Lucas Diaz - Last Filed: 08/18/24 16:08> ROS Other: All systems not noted in ROS Statement are negative. <Donis Almazan - Last Filed: 08/19/24 23:51> ROS Statement: Those systems with pertinent positive or pertinent negative responses have been documented in the HPI. Past Medical History Past Medical History: No Reported History History of Any Multi-Drug Resistant Organisms: None Reported Past Surgical History: No Surgical Hx Reported Past Psychological History: Bipolar, Depression Smoking Status: Never smoker Past Alcohol Use History: Occasional Past Drug Use History: Marijuana <Lucas Diaz - Last Filed: 08/18/24 16:08> General Exam Limitations: no limitations <Lucas Diaz - Last Filed: 08/18/24 16:08> General appearance: alert, in no apparent distress Head exam: Present: atraumatic, normocephalic, normal inspection Eye exam: Present: normal appearance, PERRL, EOMI. Absent: scleral icterus, conjunctival injection, periorbital swelling ENT exam: Present: normal exam, mucous membranes moist Neck exam: Present: normal inspection. Absent: tenderness, meningismus, lymphadenopathy Respiratory exam: Present: normal lung sounds bilaterally. Absent: respiratory distress, wheezes, rales, rhonchi, stridor Cardiovascular Exam: Present: regular rate, normal rhythm, normal heart sounds. Absent: systolic murmur, diastolic murmur, rubs, gallop, clicks GI/Abdominal exam: Present: soft, normal bowel sounds. Absent: distended, tenderness, guarding, rebound, rigid Extremities exam: Present: normal inspection, full ROM, normal capillary refill. Absent: tenderness, pedal edema, joint swelling, calf tenderness Back exam: Present: normal inspection Neurological exam: Present: alert, oriented X3, CN II-XII intact Psychiatric exam: Present: normal affect, normal mood Skin exam: Present: warm, dry, intact, normal color. Absent: rash <Donis Almazan - Last Filed: 08/19/24 23:51> - General Exam Comments Initial Comments: Visual Physical Exam Vital signs reviewed General: Patient appears pale. Nontoxic, no acute distress. Head: Normocephalic, atraumatic Eyes: PERRLA, EOMI ENT: Airway patent Chest: Nonlabored breathing Skin: No visual rash, normal skin tone Neuro: Alert and oriented 3 Musculoskeletal: No gross abnormalities (Lucas Diaz) Course <Donis Almazan - Last Filed: 08/19/24 23:51> Vital Signs 08/18/24 08/18/24 08/18/24 15:37 19:00 19:45 Temperature 98.2 F 98.1 F Pulse Rate 76 66 85 Respiratory 20 16 16 Rate Blood Pressure 126/86 114/86 125/81 O2 Sat by Pulse 99 99 97 Oximetry - Reevaluation(s) Reevaluation #1: 08/18/24 16:45 Medical record is reviewed (Donis Almazan) Reevaluation #2: 08/18/24 19:37 Symptoms continue to improve throughout ER stay (Donis Almazan) Reevaluation #3: 08/18/24 19:37 Patient informed of results questions answered (Donis Almazan) Reevaluation #4: Was pt. sent in by a medical professional or institution (, PA, TRACK MACHINE OPERATOR REPAIRER, urgent c are, hospital, or senior living...) When possible be specific @ -no Did you speak to anyone other than the patient for history (EMS, parent, family, police, friend...)? What history was obtained from this source @ -no Did you review nursing and triage notes (agree or disagree)? Why? @ -agree Are old charts reviewed (outside hosp., previous admission, EMS record, old EKG, old radiological studies, urgent care reports/EKG's, senior living records)? Report findings @ -yes Differential Diagnosis (chest pain, altered mental status, abdominal pain women, abdominal pain men, vaginal bleeding, weakness, fever, dyspnea, syncope, headache, dizziness, GI bleed, back pain, seizure, CVA, palpatations, mental health, musculoskeletal)? @ -prior EKG interpreted by me (3pts min.). @ -no X-rays interpreted by me (1pt min.). @ -no CT interpreted by me (1pt min.). @ -no U/S interpreted by me (1pt. min.). @ -no What testing was considered but not performed or refused? (CT, X-rays, U/S, labs)? Why? @ -none What meds were considered but not given or refused? Why? @ -none Did you discuss the management of the patient with other professionals (professionals i.e. , PA, TRACK MACHINE OPERATOR REPAIRER, lab, RT, psych nurse, social work faculty member, user experience developer, teacher, navigation officer, transplant case manager)? Give summary @ -no Was smoking cessation discussed for >3mins.? @ -no Was critical care preformed (if so, how long)? @ -no Were there social determinants of health that impacted care today? How? (Homelessness, low income, unemployed, alcoholism, drug addiction, transportation, low edu. Level, literacy, decrease access to med. care, long term, rehab)? @ -none Was there de-escalation of care discussed even if they declined (Discuss DNR or withdrawal of care, Hospice)? DNR status @ -no What co-morbidities impacted this encounter? (DM, HTN, Smoking, COPD, CAD, Cancer, CVA, ARF, Chemo, Hep., AIDS, mental health diagnosis, sleep apnea, morbid obesity)? @ -none Was patient admitted / discharged? Hospital course, mention meds given and route, prescriptions, significant lab abnormalities, going to OR and other pertinent info. 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 @ -no Drug Therapy requiring intensive monitoring for toxicity (Heparin, Nitro, Insulin, Cardizem)? @ -no Were any procedures done? @ -no Diagnosis/symptom? @ -Cyclic vomiting syndrome Acute, or Chronic, or Acute on Chronic? @ -Acute Uncomplicated (without systemic symptoms) or Complicated (systemic symptoms)? @ -Complicated Side effects of treatment? @ -no Exacerbation, Progression, or Severe Exacerbation? @ -exacerbation Poses a threat to life or bodily function? How? (Chest pain, [place], [place], pneumonia, PE, COPD, DKA, ARF, appy, cholecystitis, CVA, Diverticulitis, Homicidal, Suicidal, threat to staff... and all critical care pts) @ -no (Donis Almazan) Reevaluation #5: Differential Abdominal Pain Women: Appendicitis, Cholecystitis, diverticulosis, ischemic bowel, pancreatitis, hepatitis, UTI, gastroenteritis, AAA, incarcerated hernia, bowel obstruction, constipation, inflammatory bowel, hepatitis, peptic ulcer disease, splenic infarction, perforated viscus, vulvitis, ovarian torsion, PID, kidney stone, placenta abruption, this is not meant to be an all-inclusive list (Donis Almazan) EKG Findings - EKG Comments: EKG Findings:: EKG is sinus 56 SD 101 QRS 106 QTc 384 - EKG Results: EKG: interpreted by ERMD EKG shows: bradycardia <Donis Almazna - Last Filed: 08/19/24 23:51> Medical Decision Making <Lucas Diaz - Last Filed: 08/18/24 16:08> - Lab Data Result diagrams: 08/18/24 16:46 08/18/24 16:46 <Donis Almazan - Last Filed: 08/19/24 23:51> - Medical Decision Making I completed the quick note portion of this chart signed ROSALIO Rueda (Lucas Diaz) 19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 patient can be discharged home (Donis Almazan) - Lab Data Lab Results 08/18/24 08/18/24 08/18/24 Range/Units 16:46 16:46 16:46 WBC 10.41 H (4.50-10.00) 10*3/uL RBC 4.62 (4.10-5.20) 10*6/uL Hgb 13.9 (12.0-15.0) g/dL Hct 40.2 (37.2-46.3) % MCV 87.0 (80.0-97.0) fL MCH 30.1 (27.0-32.0) pg MCHC 34.6 (32.0-37.0) g/dL Plt Count 270 (140-440) 10*3/uL MPV 9.5 (9.5-12.2) fL Immature Gran % (Auto) 0.3 % Neutrophils % 76.9 % Lymphocytes % 16.1 % Monocytes % 6.2 % Eosinophils % 0.1 % Basophils % 0.4 % Immature Gran # 0.03 (0.00-0.04) 10*3/uL Neutrophils # 8.00 H (1.80-7.70) 10*3/uL Lymphocytes # 1.68 (0.90-5.00) 10*3/uL Monocytes # 0.65 (0.20-1.00) 10*3/uL Eosinophils # 0.01 L (0.04-0.35) 10*3/uL Basophils # 0.04 (0.00-0.10) 10*3/uL Sodium 136 L (137-145) mmol/L Potassium 3.8 (3.5-5.1) mmol/L Chloride 103 (98-107) mmol/L Carbon Dioxide 23 (22-30) mmol/L Anion Gap 10 mmol/L BUN 6 L (7-17) mg/dL Creatinine 0.65 (0.52-1.04) mg/dL Est GFR (CKD-EPI)AfAm >90 (>60 ml/min/1.73 sqM) Est GFR (CKD-EPI)NonAf >90 (>60 ml/min/1.73 sqM) Glucose 92 (74-99) mg/dL Plasma Lactic Acid Yasir 1.1 (0.7-2.0) mmol/L Calcium 9.9 (8.4-10.2) mg/dL Phosphorus 2.5 (2.5-4.5) mg/dL Magnesium 1.9 (1.6-2.3) mg/dL Total Bilirubin 1.7 H (0.2-1.3) mg/dL AST 16 (14-36) U/L ALT 10 (4-34) U/L Alkaline Phosphatase 66 (38-126) U/L Troponin I (0.000-0.034) ng/mL Total Protein 7.0 (6.3-8.2) g/dL Albumin 4.3 (3.5-5.0) g/dL Lipase 47 (23-300) U/L 08/18/24 Range/Units 16:46 WBC (4.50-10.00) 10*3/uL RBC (4.10-5.20) 10*6/uL Hgb (12.0-15.0) g/dL Hct (37.2-46.3) % MCV (80.0-97.0) fL MCH (27.0-32.0) pg MCHC (32.0-37.0) g/dL Plt Count (140-440) 10*3/uL MPV (9.5-12.2) fL Immature Gran % (Auto) % Neutrophils % % Lymphocytes % % Monocytes % % Eosinophils % % Basophils % % Immature Gran # (0.00-0.04) 10*3/uL Neutrophils # (1.80-7.70) 10*3/uL Lymphocytes # (0.90-5.00) 10*3/uL Monocytes # (0.20-1.00) 10*3/uL Eosinophils # (0.04-0.35) 10*3/uL Basophils # (0.00-0.10) 10*3/uL Sodium (137-145) mmol/L Potassium (3.5-5.1) mmol/L Chloride (98-107) mmol/L Carbon Dioxide (22-30) mmol/L Anion Gap mmol/L BUN (7-17) mg/dL Creatinine (0.52-1.04) mg/dL Est GFR (CKD-EPI)AfAm (>60 ml/min/1.73 sqM) Est GFR (CKD-EPI)NonAf (>60 ml/min/1.73 sqM) Glucose (74-99) mg/dL Plasma Lactic Acid Yasir (0.7-2.0) mmol/L Calcium (8.4-10.2) mg/dL Phosphorus (2.5-4.5) mg/dL Magnesium (1.6-2.3) mg/dL Total Bilirubin (0.2-1.3) mg/dL AST (14-36) U/L ALT (4-34) U/L Alkaline Phosphatase (38-126) U/L Troponin I <0.012 (0.000-0.034) ng/mL Total Protein (6.3-8.2) g/dL Albumin (3.5-5.0) g/dL Lipase (23-300) U/L Disposition <Lucas Diaz - Last Filed: 08/18/24 16:08> Is patient prescribed a controlled substance at d/c from ED?: No Time of Disposition: 19:30 <Donis Almazan - Last Filed: 08/19/24 23:51> Clinical Impression: Nausea and vomiting, Cannabinoid hyperemesis syndrome Disposition: HOME SELF-CARE Condition: Good Instructions (If sedation given, give patient instructions): Acute Nausea and Vomiting (ED) Referrals: Ulises Barraza DO [Primary Care Provider] - 1-2 days
--- NOTE | 2024-08-18 16:33 | ED ---
Recheck HPI - General Chief Complaint: Nausea/Vomiting/Diarrhea Stated Complaint: Nausea Time Seen by Provider: 08/18/24 15:37 Source: patient Mode of arrival: ambulatory Limitations: no limitations - Related Data Previous Rx's Medication Instructions Recorded Metoclopramide [Reglan] 10 mg PO ACHS PRN #10 tab 12/07/23 Metoclopramide [Reglan] 10 mg PO TID PRN #15 tab 03/09/24 Ondansetron Odt [Zofran Odt] 4 mg PO Q8HR PRN #14 tab 03/09/24 Cephalexin [Keflex] 500 mg PO Q6HR #40 cap 03/10/24 Ondansetron Odt [Zofran Odt] 4 mg PO Q8HR PRN #24 tab 03/11/24 Metoclopramide [Reglan] 10 mg PO Q6H PRN #20 tab 08/15/24 Ondansetron Odt [Zofran Odt] 4 mg PO Q8HR PRN #20 tab 08/15/24 Allergies Allergy/AdvReac Type Severity Reaction Status Date / Time corn Allergy Unknown Verified 08/18/24 06:37 Review of Systems ROS Statement: Those systems with pertinent positive or pertinent negative responses have been documented in the HPI. ROS Other: All systems not noted in ROS Statement are negative. Past Medical History Past Medical History: No Reported History History of Any Multi-Drug Resistant Organisms: None Reported Past Surgical History: No Surgical Hx Reported Past Psychological History: Bipolar, Depression Smoking Status: Never smoker Past Alcohol Use History: Occasional Past Drug Use History: Marijuana General Exam Limitations: no limitations Course Vital Signs 08/18/24 15:37 Temperature 98.2 F Pulse Rate 76 Respiratory 20 Rate Blood Pressure 126/86 O2 Sat by Pulse 99 Oximetry Disposition Referrals: Ulises Barraza DO [Primary Care Provider] - 1-2 days
[2024-08-18] MEDS: SODIUM CHLORIDE 0.9% 1,000 ML IV SCH (16:50)
[2024-08-18] MEDS: LORazepam 1 MG/0.5 ML VIAL IV STA (16:51)
[2024-08-18 17:00] LABS: Basophils # (A) 0.04 10*3/uL (0.00-0.10); Basophils % (A) 0.4 %; Eosinophils # (A) 0.01 10*3/uL (0.04-0.35); Eosinophils % (A) 0.1 %; HCT 40.2 % (37.2-46.3); HGB 13.9 g/dL (12.0-15.0); Lymphocytes # (A) 1.68 10*3/uL (0.90-5.00); Lymphocytes % (A) 16.1 %; MCH 30.1 pg (27.0-32.0); MCHC 34.6 g/dL (32.0-37.0); Mean Platelet Volume 9.5 fL (9.5-12.2); Monocytes # (A) 0.65 10*3/uL (0.20-1.00); Monocytes % (A) 6.2 %; Neutrophils % (A) 76.9 %; Platelet Count 270 10*3/uL (140-440); RBC 4.62 10*6/uL (4.10-5.20); RDW 12.1 % (11.5-14.5); WBC 10.41 10*3/uL (4.50-10.00)
[2024-08-18] MEDS: droPERidol 2.5 MG/ML VIAL IVP ONE (17:06)
[2024-08-18 17:12] LABS: ALT 10 U/L (4-34); AST 16 U/L (14-36); African American GFR (CKD) >90 (>60 ml/min/1.73 sqM); Albumin 4.3 g/dL (3.5-5.0); Alkaline Phosphatase 66 U/L (38-126); Anion Gap 10 mmol/L; Blood Urea Nitrogen 6 mg/dL (7-17); Calcium 9.9 mg/dL (8.4-10.2); Carbon Dioxide 23 mmol/L (22-30); Chloride 103 mmol/L (98-107); Glucose 92 mg/dL (74-99); Lipase 47 U/L (23-300); Magnesium 1.9 mg/dL (1.6-2.3); Non-African American GFR(CKD) >90 (>60 ml/min/1.73 sqM); Phosphorus 2.5 mg/dL (2.5-4.5); Potassium 3.8 mmol/L (3.5-5.1); Sodium 136 mmol/L (137-145); Total Bilirubin 1.7 mg/dL (0.2-1.3)
[2024-08-18 19:03] VITALS: RESP 16
[2024-08-18] MEDS ORDERED: DEXTROSE 5%-0.45% NACL 1,000 ML IV ONE (19:36)
[2024-08-18] MEDS: ONDANSETRON 4 MG ODT STARTER PACK 2 TAB BTL PO STA (20:16)
[2024-08-18 20:18] VITALS: BP 125/81; PULSE 85; TEMP 98.1
== END 2024-08-18 19:45 | disposition home or self-care (01) ==
LOC: EC 15:24
DX: R11.2 Nausea with vomiting, unspecified (principal); F12.90 Cannabis use, unspecified, uncomplicated; Z91.018 Allergy to other foods
CPT/HCPCS: 93005; 80053; 83605; 83690; 83735; 84100; 84484; 85025; 99284; 96374; 96375; 96361; J2060; J1790; 36415

== ENCOUNTER 2024-08-19 08:55 | Emergency (ER) | payer BC, OTHER ==
--- NOTE | 2024-08-19 09:15 | ED ---
Nausea/Vomiting/Diarrhea HPI - General Chief complaint: Nausea/Vomiting/Diarrhea Stated complaint: Nausea, vomiting Time Seen by Provider: 08/19/24 09:00 Source: patient, RN notes reviewed Mode of arrival: ambulatory Limitations: no limitations - History of Present Illness Initial comments: This is a 19-year-old female who presents to the emergency department for nausea and vomiting. This is her fourth visit in the last 3 days. Symptoms have been attributed to cannabinoid hyperemesis syndrome. States that she did stop smoking marijuana after this started 3 days ago. When she comes to the emergency department she feels better, however when she gets discharged home states that the vomiting returns despite using the prescribed medications. She has generalized abdominal discomfort from all of the vomiting. Also reports diarrhea. MD complaint: nausea, vomiting, diarrhea - Related Data Previous Rx's Medication Instructions Recorded Metoclopramide [Reglan] 10 mg PO ACHS PRN #10 tab 12/07/23 Metoclopramide [Reglan] 10 mg PO TID PRN #15 tab 03/09/24 Ondansetron Odt [Zofran Odt] 4 mg PO Q8HR PRN #14 tab 03/09/24 Cephalexin [Keflex] 500 mg PO Q6HR #40 cap 03/10/24 Ondansetron Odt [Zofran Odt] 4 mg PO Q8HR PRN #24 tab 03/11/24 Metoclopramide [Reglan] 10 mg PO Q6H PRN #20 tab 08/15/24 Ondansetron Odt [Zofran Odt] 4 mg PO Q8HR PRN #20 tab 08/15/24 Promethazine Suppository 25 mg RECTAL QID PRN #24 supp 08/19/24 [Phenergan] Allergies Allergy/AdvReac Type Severity Reaction Status Date / Time corn Allergy Unknown Verified 08/19/24 08:59 Review of Systems ROS Statement: Those systems with pertinent positive or pertinent negative responses have been documented in the HPI. ROS Other: All systems not noted in ROS Statement are negative. Past Medical History Past Medical History: No Reported History History of Any Multi-Drug Resistant Organisms: None Reported Past Surgical History: No Surgical Hx Reported Past Psychological History: Bipolar, Depression Smoking Status: Never smoker Past Alcohol Use History: Occasional Past Drug Use History: Marijuana General Exam Limitations: no limitations General appearance: alert, in no apparent distress Head exam: Present: atraumatic, normocephalic, normal inspection Respiratory exam: Present: normal lung sounds bilaterally. Absent: respiratory distress, wheezes, rales, rhonchi, stridor Cardiovascular Exam: Present: regular rate, normal rhythm GI/Abdominal exam: Present: soft, normal bowel sounds. Absent: distended, tenderness, guarding, rebound, rigid Neurological exam: Present: alert, oriented X3, CN II-XII intact Psychiatric exam: Present: normal affect, normal mood Skin exam: Present: warm, dry, intact, normal color. Absent: rash Course Vital Signs 08/19/24 08/19/24 08/19/24 08:57 09:40 10:41 Temperature 98.6 F 98.6 F Pulse Rate 95 86 76 Respiratory 18 14 16 Rate Blood Pressure 114/76 104/78 123/84 O2 Sat by Pulse 96 97 97 Oximetry 08/19/24 11:21 Temperature 98.4 F Pulse Rate 92 Respiratory 16 Rate Blood Pressure 111/80 O2 Sat by Pulse 98 Oximetry Medical Decision Making - Medical Decision Making This is a 19-year-old female who presents to the emergency department for nausea and vomiting. Was pt. sent in by a medical professional or institution? @ -No Did you speak to anyone other than the patient for history? @ -No Did you review nursing and triage notes? @ -Yes, and I agree, it is accurate with regards to the patient's symptoms. Were old charts reviewed? @ -No Differential Diagnosis? @ -Differential Nausea and Vomiting: Gastroenteritis, cholecystitis, appendicitis, pancreatitis, migraine, benign positional vertigo, food borne illness, pyelonephritis, irritable bowel syndrome, influenza, Covid, GERD, incarcerated hernia, intestinal obstruction, this is not meant to be an all-inclusive list. EKG interpreted by me (3pts min.)? @ -Not obtained X-rays interpreted by me (1pt min.)? @ -Not obtained CT interpreted by me (1pt min.)? @ -Not obtained U/S interpreted by me (1pt. min.)? @ -Not obtained What testing was considered but not performed? (CT, X-rays, U/S, labs)? Why? @ -None What meds were considered but not given? Why? @ -None Did you discuss the management of the patient with other professionals? @ -No Did you reconcile home meds? @ -No Was smoking cessation discussed for >3mins.? @ -No Was critical care preformed (if so, how long)? @ -No Were there social determinants of health that impacted care today? How? (Homelessness, low income, unemployed, alcoholism, drug addiction, transportation, low edu. Level, literacy, decrease access to med. care, snf, rehab)? @ -No Was there de-escalation of care discussed even if they declined? (Discuss DNR or withdrawal of care, Hospice)? @ -No What co-morbidities impacted this encounter? (DM, HTN, Smoking, COPD, CAD, Cancer, CVA, Hep., AIDS, mental health diagnosis, sleep apnea, morbid obesity)? @ -Marijuana use Was patient admitted / discharged? @ -Discharged. Lab work unremarkable. Patient treated with IV fluids and den peridol with improvement in symptoms. She has tried multiple oral medications, but continues to vomit. Advised something different like suppositories, which she was in agreement with. Phenergan suppositories prescribed with dosing instructions reviewed. Again reiterated with the patient the need to abstain from marijuana use for the meantime. Patient discharged home in stable condition. Case discussed with ED attending Dr. Prince. Return precautions reviewed in depth, the patient is instructed to return to the emergency department with any new, worsening, or concerning symptoms. Patient v erbalized understanding. Undiagnosed new problem with uncertain prognosis? @ -None Drug Therapy requiring intensive monitoring for toxicity (Heparin, Nitro, Insu david, Cardizem)? @ -None Were any procedures done? @ -None Diagnosis/symptom? @ -Nausea and vomiting Acute, or Chronic, or Acute on Chronic? @ -Acute Uncomplicated (without systemic symptoms) or Complicated (systemic symptoms)? @ -Uncomplicated Side effects of treatment? @ -None Exacerbation, Progression, or Severe Exacerbation] @ -Not applicable Poses a threat to life or bodily function? @ -No - Lab Data Result diagrams: 08/19/24 09:39 08/19/24 09:39 Lab Results 08/19/24 08/19/24 Range/Units 09:39 09:39 WBC 8.69 (4.50-10.00) 10*3/uL RBC 4.42 (4.10-5.20) 10*6/uL Hgb 13.2 (12.0-15.0) g/dL Hct 38.1 (37.2-46.3) % MCV 86.2 (80.0-97.0) fL MCH 29.9 (27.0-32.0) pg MCHC 34.6 (32.0-37.0) g/dL Plt Count 246 (140-440) 10*3/uL MPV 9.2 L (9.5-12.2) fL Immature Gran % (Auto) 0.5 % Neutrophils % 75.2 % Lymphocytes % 19.1 % Monocytes % 4.7 % Eosinophils % 0.0 % Basophils % 0.5 % Immature Gran # 0.04 (0.00-0.04) 10*3/uL Neutrophils # 6.54 (1.80-7.70) 10*3/uL Lymphocytes # 1.66 (0.90-5.00) 10*3/uL Monocytes # 0.41 (0.20-1.00) 10*3/uL Eosinophils # 0.00 L (0.04-0.35) 10*3/uL Basophils # 0.04 (0.00-0.10) 10*3/uL Sodium 133 L (137-145) mmol/L Potassium 3.5 (3.5-5.1) mmol/L Chloride 98 (98-107) mmol/L Carbon Dioxide 23 (22-30) mmol/L Anion Gap 12 mmol/L BUN 5 L (7-17) mg/dL Creatinine 0.54 (0.52-1.04) mg/dL Est GFR (CKD-EPI)AfAm >90 (>60 ml/min/1.73 sqM) Est GFR (CKD-EPI)NonAf >90 (>60 ml/min/1.73 sqM) Glucose 101 H (74-99) mg/dL Calcium 9.9 (8.4-10.2) mg/dL Magnesium 1.7 (1.6-2.3) mg/dL Total Bilirubin 1.5 H (0.2-1.3) mg/dL AST 15 (14-36) U/L ALT 10 (4-34) U/L Alkaline Phosphatase 64 (38-126) U/L Total Protein 7.0 (6.3-8.2) g/dL Albumin 4.3 (3.5-5.0) g/dL Lipase 124 (23-300) U/L HCG, Qual Not Detected Disposition Clinical Impression: Nausea and vomiting, Cannabinoid hyperemesis syndrome Disposition: HOME SELF-CARE Instructions (If sedation given, give patient instructions): Acute Nausea and Vomiting (ED) Additional Instructions: Return to the emergency department with any new, worsening, or concerning symptoms. You can use the Phenergan suppositories up to 4 times daily to help with the nausea and vomiting. Make sure you continue to avoid using marijuana. Follow up with your primary care provider in 1-2 days. Prescriptions: Promethazine Suppository [Phenergan] 25 mg RECTAL QID PRN #24 supp PRN Reason: Nausea And Vomiting Is patient prescribed a controlled substance at d/c from ED?: No Referrals: Ulises Barraza DO [Primary Care Provider] - 1-2 days Time of Disposition: 11:15
[2024-08-19 09:47] LABS: Basophils # (A) 0.04 10*3/uL (0.00-0.10); Basophils % (A) 0.5 %; HCT 38.1 % (37.2-46.3); HGB 13.2 g/dL (12.0-15.0); Lymphocytes # (A) 1.66 10*3/uL (0.90-5.00); Lymphocytes % (A) 19.1 %; MCH 29.9 pg (27.0-32.0); MCHC 34.6 g/dL (32.0-37.0); MCV 86.2 fL (80.0-97.0); Mean Platelet Volume 9.2 fL (9.5-12.2); Monocytes # (A) 0.41 10*3/uL (0.20-1.00); Monocytes % (A) 4.7 %; Neutrophils # (A) 6.54 10*3/uL (1.80-7.70); Neutrophils % (A) 75.2 %; Platelet Count 246 10*3/uL (140-440); RBC 4.42 10*6/uL (4.10-5.20); WBC 8.69 10*3/uL (4.50-10.00)
[2024-08-19] MEDS: SODIUM CHLORIDE 0.9% 1,000 ML IV ONE (09:48)
[2024-08-19] MEDS: droPERidol 2.5 MG/ML VIAL IVP ONE (09:49)
[2024-08-19 10:05] LABS: ALT 10 U/L (4-34); AST 15 U/L (14-36); African American GFR (CKD) >90 (>60 ml/min/1.73 sqM); Albumin 4.3 g/dL (3.5-5.0); Alkaline Phosphatase 64 U/L (38-126); Anion Gap 12 mmol/L; Blood Urea Nitrogen 5 mg/dL (7-17); Calcium 9.9 mg/dL (8.4-10.2); Carbon Dioxide 23 mmol/L (22-30); Chloride 98 mmol/L (98-107); Glucose 101 mg/dL (74-99); Lipase 124 U/L (23-300); Magnesium 1.7 mg/dL (1.6-2.3); Non-African American GFR(CKD) >90 (>60 ml/min/1.73 sqM); Potassium 3.5 mmol/L (3.5-5.1); Sodium 133 mmol/L (137-145); Total Bilirubin 1.5 mg/dL (0.2-1.3)
[2024-08-19 10:42] VITALS: RESP 16
[2024-08-19 11:00] LABS: HCG,Qualitative Serum Not Detected
[2024-08-19 11:24] VITALS: BP 111/80; PULSE 92; TEMP 98.4
== END 2024-08-19 11:35 | disposition home or self-care (01) ==
LOC: EC 08:55
DX: R11.2 Nausea with vomiting, unspecified (principal); F12.90 Cannabis use, unspecified, uncomplicated; Z91.018 Allergy to other foods
CPT/HCPCS: 36415; 80053; 83690; 83735; 85025; 84703; 99284; 96374; 96361; J1790

== ENCOUNTER 2024-08-19 20:49 | Emergency (ER) | payer BC, OTHER ==
--- NOTE | 2024-08-19 22:25 | ED ---
Nausea/Vomiting/Diarrhea HPI - General Chief complaint: Nausea/Vomiting/Diarrhea Stated complaint: Nausea,Vomiting Time Seen by Provider: 08/19/24 21:52 Source: patient Mode of arrival: ambulatory Limitations: no limitations - History of Present Illness Initial comments: This patient is a 19-year-old woman who presents with complaint that she is having recurrent nausea and vomiting. The patient states that the symptoms have been going on approximately 3 to 4 days now. She has quit using cannabis approximately 5 days ago. The patient has not noted fever or chills. No bloody or coffee-ground emesis. 1 loose bowel movement. No bloody or tarry stools. She does have some mild abdominal pain that had come on after number of rounds of emesis but there was no pain prior. No change in urination. Last menstrual cycle was approximately 2 weeks ago and normal. She did have a negative test. MD complaint: nausea, vomiting Description of Vomiting: food contents Associated Abdominal Pain: Yes Location: diffuse Radiation: none Severity: mild Quality: cramping Consistency: intermittent Improves with: none Worsens with: none Associated Symptoms: nausea/vomiting - Related Data Home Medications Medication Instructions Recorded Confirmed ARIPiprazole [Abilify] 10 mg PO HS 08/21/24 08/21/24 Citalopram Hydrobromide [CeleXA] 40 mg PO HS 08/21/24 08/21/24 Previous Rx's Medication Instructions Recorded Ondansetron Odt [Zofran ODT] 4 mg PO Q8HR PRN #20 tab 08/15/24 Famotidine [Pepcid] 20 mg PO BID 15 Days #30 tablet 08/26/24 Folic Acid 1 mg PO DAILY@1200 #30 tab 08/26/24 Metoclopramide [Reglan] 10 mg PO Q6H PRN 3 Days #12 tab 08/26/24 Thiamine [Vitamin B-1] 100 mg PO DAILY #30 tab 08/26/24 Allergies Allergy/AdvReac Type Severity Reaction Status Date / Time No Known Allergies Allergy Verified 08/24/24 07:32 Review of Systems ROS Statement: Those systems with pertinent positive or pertinent negative responses have been documented in the HPI. ROS Other: All systems not noted in ROS Statement are negative. Constitutional: Denies: fever, chills, weakness Respiratory: Denies: cough, dyspnea Cardiovascular: Denies: chest pain, syncope Gastrointestinal: Reports: abdominal pain, nausea, vomiting. Denies: diarrhea, constipation, hematemesis, melena, hematochezia Genitourinary: Denies: dysuria, frequency, hematuria, abnormal menses Musculoskeletal: Denies: back pain Skin: Denies: rash Neurological: Denies: headache, weakness Past Medical History Past Medical History: No Reported History History of Any Multi-Drug Resistant Organisms: None Reported Past Surgical History: No Surgical Hx Reported Past Psychological History: Bipolar, Depression Smoking Status: Never smoker Past Alcohol Use History: Occasional Past Drug Use History: Marijuana General Exam Limitations: no limitations General appearance: alert, in no apparent distress Head exam: Present: atraumatic, normocephalic Eye exam: Present: normal appearance. Absent: scleral icterus, conjunctival inj ection ENT exam: Present: normal oropharynx Neck exam: Present: normal inspection Respiratory exam: Present: normal lung sounds bilaterally. Absent: respiratory distress, wheezes, rales, rhonchi, stridor, accessory muscle use Cardiovascular Exam: Present: regular rate, normal rhythm, normal heart sounds. Absent: systolic murmur, diastolic murmur, rubs, gallop GI/Abdominal exam: Present: soft. Absent: distended, tenderness, guarding, rebound, rigid, mass Extremities exam: Present: normal inspection, normal capillary refill. Absent: pedal edema, calf tenderness Back exam: Present: normal inspection. Absent: CVA tenderness (R), CVA tenderness (L) Neurological exam: Present: alert Skin exam: Present: warm, dry, intact, normal color. Absent: rash Course Vital Signs 08/19/24 08/20/24 08/20/24 20:55 05:24 08:07 Temperature 98 F 98.1 F 98.5 F Pulse Rate 80 109 H 92 Respiratory 18 20 16 Rate Blood Pressure 147/85 127/81 131/91 O2 Sat by Pulse 96 98 95 Oximetry Medical Decision Making - Medical Decision Making Was pt. sent in by a medical professional or institution (, PA, FISHING GEAR MECHANIC, urgent care, hospital, or alf...) When possible be specific @ -[No] Did you speak to anyone other than the patient for history (EMS, parent, family, police, friend...)? What history was obtained from this source @ -[No] Did you review nursing and triage notes (agree or disagree)? Why? @ -[I reviewed and agree with nursing and triage notes] Were old charts reviewed (outside hosp., previous admission, EMS record, old EKG, old radiological studies, urgent care reports/EKG's, alf records)? Report findings @ -[Yes, old charts were reviewed] Differential Diagnosis (chest pain, altered mental status, abdominal pain women, abdominal pain men, vaginal bleeding, weakness, fever, dyspnea, syncope, headache, dizziness, GI bleed, back pain, seizure, CVA, palpatations, mental health, musculoskeletal)? @ -[Differential Abdominal Pain Women: Appendicitis, Cholecystitis, diverticulosis, ischemic bowel, pancreatitis, hepatitis, UTI, gastroenteritis, AAA, incarcerated hernia, bowel obstruction, constipation, inflammatory bowel, hepatitis, peptic ulcer disease, splenic infarction, perforated viscus, vulvitis, ovarian torsion, PID, kidney stone, placenta abruption, this is not meant to be an all-inclusive list EKG interpreted by me (3pts min.). @ -[As above] X-rays interpreted by me (1pt min.). @ -[None done] CT interpreted by me (1pt min.). @ -[None done] U/S interpreted by me (1pt. min.). @ -[None done] What testing was considered but not performed or refused? (CT, X-rays, U/S, labs)? Why? @ -[None] What meds were considered but not given or refused? Why? @ -[None] Did you discuss the management of the patient with other professionals (professionals i.e. , PA, FISHING GEAR MECHANIC, lab, RT, psych nurse, aids social worker, tuberculosis specialist, teacher, public relations officer, oil field caser)? Give summary @ -[No] Was smoking cessation discussed for >3mins.? @ -[No] Was critical care preformed (if so, how long)? @ -[No] Were there social determinants of health that impacted care today? How? (Homelessness, low income, unemployed, alcoholism, drug addiction, transportation, low edu. Level, literacy, decrease access to med. care, skilled nursing, rehab)? @ -[No] Was there de-escalation of care discussed even if they declined (Discuss DNR or withdrawal of care, Hospice)? DNR status @ -[No] What co-morbidities impacted this encounter? (DM, HTN, Smoking, COPD, CAD, Cancer, CVA, ARF, Chemo, Hep., AIDS, mental health diagnosis, sleep apnea, morbid obesity)? @ -[None] Was patient admitted / discharged? Hospital course, mention meds given and route, prescriptions, significant lab abnormalities, going to OR and other pertinent info. @ -[Patient is a 19-year-old woman presenting with multiple episodes of nausea and vomiting as well as some abdominal pain. The patient has had some improvement with fluids and medications. Will prescribe further antiemetics and have close follow-up. Discussed return parameters. Undiagnosed new problem with uncertain prognosis? @ -[No] Drug Therapy requiring intensive monitoring for toxicity (Heparin, Nitro, Insulin, Cardizem)? @ -[No] Were any procedures done? @ -[No] Diagnosis/symptom? @ -[Acute nausea and vomiting Suspected cannabis hyperemesis syndrome Acute, or Chronic, or Acute on Chronic? @ -[Acute Uncomplicated (without systemic symptoms) or Complicated (systemic symptoms)? @ -[Uncomplicated Side effects of treatment? @ -[No] Exacerbation, Progression, or Severe Exacerbation? @ -[No] Poses a threat to life or bodily function? How? (Chest pain, [place], [place], pneumonia, PE, COPD, DKA, ARF, appy, cholecystitis, CVA, Diverticulitis, Homicidal, Suicidal, threat to staff... and all critical care pts) @ -[No] All treatments are based on ideal body weight as in ED triage Disposition Clinical Impression: Nausea and vomiting, Cannabinoid hyperemesis syndrome Disposition: HOME SELF-CARE Condition: Good Instructions (If sedation given, give patient instructions): Acute Nausea and Vomiting (ED) Is patient prescribed a controlled substance at d/c from ED?: No Referrals: Ulises Barraza DO [Primary Care Provider] - 1-2 days
[2024-08-19] MEDS: ONDANSETRON 4 MG/2 ML VIAL IVP STA (23:11)
[2024-08-19] MEDS: SODIUM CHLORIDE 0.9% 500 ML 500 ML IV STA (23:13)
[2024-08-19] MEDS: METOCLOPRAMIDE 5 MG/ML 2 ML VIAL IVP STA (23:43)
[2024-08-20] MEDS: DEXTROSE 5%-0.45% NACL 1,000 ML IV ONE (00:08)
[2024-08-20] MEDS: FAMOTIDINE 20 MG/2 ML VIAL IV STA (02:15)
[2024-08-20] MEDS: PROCHLORPERAZINE INJ 10 MG/2 ML VIAL IVP STA (02:16)
[2024-08-20] MEDS: SODIUM CHLORIDE 0.9% 500 ML 500 ML IV STA ×2 (02:20→05:21)
[2024-08-20] MEDS: METOCLOPRAMIDE 5 MG/ML 2 ML VIAL IVP STA (05:19)
[2024-08-20] MEDS: PANTOPRAZOLE 40 MG/10 ML VIAL IVP STA (05:20)
[2024-08-20 08:09] VITALS: BP 131/91; PULSE 92; RESP 16; TEMP 98.5
== END 2024-08-20 08:09 | disposition home or self-care (01) ==
LOC: EC 20:49
DX: R11.2 Nausea with vomiting, unspecified (principal)
CPT/HCPCS: 99284; 96374; 96375 ×2; 96361; 96376; J0780; J2765 ×2; J2405; J2470; J1308

== ENCOUNTER 2024-08-21 07:13 | Inpatient (IN) | payer BC, OTHER ==
--- NOTE | 2024-08-21 07:24 | ED ---
Nausea/Vomiting/Diarrhea HPI - General Chief complaint: Nausea/Vomiting/Diarrhea Stated complaint: N/V/D Time Seen by Provider: 08/21/24 07:17 Source: patient, RN notes reviewed Mode of arrival: ambulatory Limitations: no limitations - History of Present Illness Initial comments: 19-year-old female presenting to the emergency department for repeat visit of persistent nausea, vomiting, diarrhea over the past 6 days. Patient has been seen numerous times for similar complaints. She states that her symptoms "have been getting better" however she has been reportedly throwing up every 30 minutes despite medications outpatient. Endorses abdominal cramping prior to emesis. Denies hematemesis, hematochezia, melena - Related Data Previous Rx's Medication Instructions Recorded Metoclopramide [Reglan] 10 mg PO ACHS PRN #10 tab 12/07/23 Metoclopramide [Reglan] 10 mg PO TID PRN #15 tab 03/09/24 Ondansetron Odt [Zofran Odt] 4 mg PO Q8HR PRN #14 tab 03/09/24 Cephalexin [Keflex] 500 mg PO Q6HR #40 cap 03/10/24 Ondansetron Odt [Zofran Odt] 4 mg PO Q8HR PRN #24 tab 03/11/24 Metoclopramide [Reglan] 10 mg PO Q6H PRN #20 tab 08/15/24 Ondansetron Odt [Zofran Odt] 4 mg PO Q8HR PRN #20 tab 08/15/24 Promethazine Suppository 25 mg RECTAL QID PRN #24 supp 08/19/24 [Phenergan] Famotidine [Pepcid] 20 mg PO BID #14 tablet 08/20/24 Promethazine [Phenergan] 25 mg PO Q6HR PRN #12 tablet 08/20/24 Allergies Allergy/AdvReac Type Severity Reaction Status Date / Time corn Allergy Unknown Verified 08/21/24 07:17 Review of Systems ROS Statement: Those systems with pertinent positive or pertinent negative responses have been documented in the HPI. ROS Other: All systems not noted in ROS Statement are negative. Past Medical History Past Medical History: No Reported History History of Any Multi-Drug Resistant Organisms: None Reported Past Surgical History: No Surgical Hx Reported Past Psychological History: Bipolar, Depression Smoking Status: Never smoker Past Alcohol Use History: Occasional Past Drug Use History: Marijuana General Exam Limitations: no limitations General appearance: alert, in no apparent distress ENT exam: Present: normal exam, mucous membranes moist Neck exam: Present: normal inspection. Absent: tenderness, meningismus, lymphadenopathy Respiratory exam: Present: normal lung sounds bilaterally. Absent: respiratory distress, wheezes, rales, rhonchi, stridor Cardiovascular Exam: Present: regular rate, normal rhythm, normal heart sounds. Absent: systolic murmur, diastolic murmur, rubs, gallop, clicks GI/Abdominal exam: Present: soft, normal bowel sounds. Absent: distended, tenderness, guarding, rebound, rigid Extremities exam: Present: normal inspection, full ROM, normal capillary refill. Absent: tenderness, pedal edema, joint swelling, calf tenderness Back exam: Present: normal inspection. Absent: CVA tenderness (R), CVA tenderness (L) Course Vital Signs 08/21/24 07:14 Temperature 98.0 F Pulse Rate 74 Respiratory 17 Rate Blood Pressure 116/77 O2 Sat by Pulse 98 Oximetry Medical Decision Making - Medical Decision Making Was pt. sent in by a medical professional or institution (, PA, CLINICAL QUALITY RN, urgent care, hospital, or shelter...) When possible be specific @ -No Did you speak to anyone other than the patient for history (EMS, parent, family, police, friend...)? What history was obtained from this source @ -No Did you review nursing and triage notes (agree or disagree)? Why? @ -I reviewed and agree with nursing and triage notes Were old charts reviewed (outside hosp., previous admission, EMS record, old EKG, old radiological studies, urgent care reports/EKG's, shelter records)? Report findings @ -Reviewed previous ER notes as patient has had 6 visits within the last 6 day presenting with the same symptoms as today. Differential Diagnosis (chest pain, altered mental status, abdominal pain women, abdominal pain men, vaginal bleeding, weakness, fever, dyspnea, syncope, headache, dizziness, GI bleed, back pain, seizure, CVA, palpatations, mental health, musculoskeletal)? @ -Differential Abdominal Pain Women: Appendicitis, Cholecystitis, diverticulosis, ischemic bowel, pancreatitis, hepatitis, UTI, gastroenteritis, AAA, incarcerated hernia, bowel obstruction, constipation, inflammatory bowel, hepatitis, peptic ulcer disease, splenic infarction, perforated viscus, vulvitis, ovarian torsion, PID, kidney stone, placenta abruption, this is not meant to be an all-inclusive list EKG interpreted by me (3pts min.). @ -None X-rays interpreted by me (1pt min.). @ -None done CT interpreted by me (1pt min.). @ -None done U/S interpreted by me (1pt. min.). @ -None done What testing was considered but not performed or refused? (CT, X-rays, U/S, labs)? Why? @ -None What meds were considered but not given or refused? Why? @ -None Did you discuss the management of the patient with other professionals (professionals i.e. , PA, CLINICAL QUALITY RN, lab, RT, psych nurse, social media intern, machine operator hop picker, teacher, corporate officer, gearcase assembler)? Give summary @ -Dr. Webb for admission, who has agreed to admit the patient Was smoking cessation discussed for >3mins.? @ -No Was critical care preformed (if so, how long)? @ -No Were there social determinants of health that impacted care today? How? (Homelessness, low income, unemployed, alcoholism, drug addiction, transportation, low edu. Level, literacy, decrease access to med. care, [facility], rehab)? @ -No Was there de-escalation of care discussed even if they declined (Discuss DNR or withdrawal of care, Hospice)? DNR status @ -No What co-morbidities impacted this encounter? (DM, HTN, Smoking, COPD, CAD, Cancer, CVA, ARF, Chemo, Hep., AIDS, mental health diagnosis, sleep apnea, morbid obesity)? @ -None Was patient admitted / discharged? Hospital course, mention meds given and route, prescriptions, significant lab abnormalities, going to OR and other pertinent info. @ -Admitted. 19-year-old female presents emergency room with persistent nausea, vomiting, diarrhea. Patient is noted to be laying on her side in the exa mination bed however no signs of distress. Abdominal examination is unremarkable. Initial vitals are stable. Patient provided with IV fluids, Protonix, Pepcid and Reglan. Labs are concerning for hyponatremia with a sodium of 131, hypokalemia with a potassium of 2.9. This is patient's sixth visit within the last week and with laboratory abnormalities patient admitted to medicine for fluid resuscitation. Case discussed by attending Dr. Bhatt Undiagnosed new problem with uncertain prognosis? @ -No Drug Therapy requiring intensive monitoring for toxicity (Heparin, Nitro, Insulin, Cardizem)? @ -No Were any procedures done? @ -No Diagnosis/symptom? @ -intractable nausea and vomiting, dehydration, hyponatremia, hypokalemia Acute, or Chronic, or Acute on Chronic? @ -acute Uncomplicated (without systemic symptoms) or Complicated (systemic symptoms)? @ -uncomplicated Side effects of treatment? @ -No Exacerbation, Progression, or Severe Exacerbation? @ -No Poses a threat to life or bodily function? How? (Chest pain, [place], [place], pneumonia, PE, COPD, DKA, ARF, appy, cholecystitis, CVA, Diverticulitis, Homicidal, Suicidal, threat to staff... and all critical care pts) @ -No - Lab Data Result diagrams: 08/21/24 07:35 08/21/24 07:35 Lab Results 08/21/24 08/21/24 Range/Units 07:35 07:35 WBC 8.47 (4.50-10.00) 10*3/uL RBC 4.37 (4.10-5.20) 10*6/uL Hgb 13.1 (12.0-15.0) g/dL Hct 37.5 (37.2-46.3) % MCV 85.8 (80.0-97.0) fL MCH 30.0 (27.0-32.0) pg MCHC 34.9 (32.0-37.0) g/dL Plt Count 256 (140-440) 10*3/uL MPV 9.9 (9.5-12.2) fL Immature Gran % (Auto) 0.6 % Neutrophils % 66.4 % Lymphocytes % 23.3 % Monocytes % 8.9 % Eosinophils % 0.0 % Basophils % 0.8 % Immature Gran # 0.05 H (0.00-0.04) 10*3/uL Neutrophils # 5.63 (1.80-7.70) 10*3/uL Lymphocytes # 1.97 (0.90-5.00) 10*3/uL Monocytes # 0.75 (0.20-1.00) 10*3/uL Eosinophils # 0.00 L (0.04-0.35) 10*3/uL Basophils # 0.07 (0.00-0.10) 10*3/uL Sodium 131 L (137-145) mmol/L Potassium 2.9 L (3.5-5.1) mmol/L Chloride 97 L (98-107) mmol/L Carbon Dioxide 24 (22-30) mmol/L Anion Gap 10 mmol/L BUN 5 L (7-17) mg/dL Creatinine 0.66 (0.52-1.04) mg/dL Est GFR (CKD-EPI)AfAm >90 (>60 ml/min/1.73 sqM) Est GFR (CKD-EPI)NonAf >90 (>60 ml/min/1.73 sqM) Glucose 94 (74-99) mg/dL Calcium 9.1 (8.4-10.2) mg/dL Magnesium 1.8 (1.6-2.3) mg/dL Total Bilirubin 1.6 H (0.2-1.3) mg/dL AST 19 (14-36) U/L ALT 8 (4-34) U/L Alkaline Phosphatase 62 (38-126) U/L Total Protein 6.9 (6.3-8.2) g/dL Albumin 4.4 (3.5-5.0) g/dL Lipase 46 (23-300) U/L Disposition Clinical Impression: Intractable nausea and vomiting, Hyponatremia, Hypokalemia Disposition: ADMITTED IP TO THIS [facility] Condition: Stable Decision to Admit Reason: Admit from EC Decision Date: 08/21/24 Decision Time: 08:47
[2024-08-21] MEDS: SODIUM CHLORIDE 0.9% 1,000 ML IV STA (07:46)
[2024-08-21] MEDS: PANTOPRAZOLE 40 MG/10 ML VIAL IVP STA (07:47)
[2024-08-21] MEDS: METOCLOPRAMIDE 5 MG/ML 2 ML VIAL IVP STA (07:49)
[2024-08-21] MEDS: FAMOTIDINE 20 MG/2 ML VIAL IV STA (07:50)
[2024-08-21 08:17] LABS: Basophils # (A) 0.07 10*3/uL (0.00-0.10); Basophils % (A) 0.8 %; HCT 37.5 % (37.2-46.3); HGB 13.1 g/dL (12.0-15.0); Lymphocytes # (A) 1.97 10*3/uL (0.90-5.00); Lymphocytes % (A) 23.3 %; MCHC 34.9 g/dL (32.0-37.0); MCV 85.8 fL (80.0-97.0); Mean Platelet Volume 9.9 fL (9.5-12.2); Monocytes # (A) 0.75 10*3/uL (0.20-1.00); Monocytes % (A) 8.9 %; Neutrophils # (A) 5.63 10*3/uL (1.80-7.70); Neutrophils % (A) 66.4 %; Platelet Count 256 10*3/uL (140-440); RBC 4.37 10*6/uL (4.10-5.20); RDW 11.9 % (11.5-14.5); WBC 8.47 10*3/uL (4.50-10.00)
[2024-08-21 08:30] LABS: ALT 8 U/L (4-34); AST 19 U/L (14-36); African American GFR (CKD) >90 (>60 ml/min/1.73 sqM); Albumin 4.4 g/dL (3.5-5.0); Alkaline Phosphatase 62 U/L (38-126); Anion Gap 10 mmol/L; Blood Urea Nitrogen 5 mg/dL (7-17); Calcium 9.1 mg/dL (8.4-10.2); Carbon Dioxide 24 mmol/L (22-30); Chloride 97 mmol/L (98-107); Glucose 94 mg/dL (74-99); Lipase 46 U/L (23-300); Magnesium 1.8 mg/dL (1.6-2.3); Non-African American GFR(CKD) >90 (>60 ml/min/1.73 sqM); Potassium 2.9 mmol/L (3.5-5.1); Sodium 131 mmol/L (137-145); Total Bilirubin 1.6 mg/dL (0.2-1.3); Total Protein 6.9 g/dL (6.3-8.2)
[2024-08-21] MEDS: SODIUM CHLORIDE 0.9% 1,000 ML IV ONE (08:33)
[2024-08-21] MEDS ORDERED: ONDANSETRON 4 MG/2 ML VIAL IVP PRN (08:50)
[2024-08-21] MEDS ORDERED: NALOXONE 0.4 MG/ML 1 ML VIAL IV PRN (08:50)
[2024-08-21] MEDS: PANTOPRAZOLE 40 MG/10 ML VIAL IV SCH ×2 (09:29→22:18)
[2024-08-21] MEDS: METOCLOPRAMIDE 5 MG/ML 2 ML VIAL IVP PRN (10:36)
[2024-08-21] MEDS: SODIUM CHLORIDE 0.9% 1,000 ML IV SCH (10:37)
[2024-08-21] MEDS ORDERED: LORazepam 2 MG/ML INJ IV PRN ×4 (10:53→10:55)
[2024-08-21] MEDS ORDERED: Potassium Replacement Protocol 1 EACH MISC MISCELLANE PRN (10:53)
[2024-08-21] MEDS ORDERED: Magnesium Replacement Protocol 1 EACH MISC MISCELLANE PRN (10:53)
[2024-08-21] MEDS ORDERED: SODIUM CHLORIDE 0.9% 1,000 ML with POTASSIUM CHLORIDE 40 MEQ IV SCH (10:54)
[2024-08-21 11:11] LABS: Appearance,Urine Clear (Clear); Bilirubin,Urine Negative (Negative); Blood,Urine Negative (Negative); Color,Urine Colorless; Glucose,Urine (UA) Negative (Negative); Ketones,Urine 2+ (Negative); Leukocyte Esterase,Urine Negative (Negative); Nitrite,Urine Negative (Negative); PH, Urine 6.5 (5.0-8.0); Protein,Urine Negative (Negative); Specific Gravity,Urine 1.007 (1.001-1.035); Urobilinogen,Urine <2.0 mg/dL (<2.0)
[2024-08-21 11:19] LABS: Amphetamine Screen,Urine Not Detected (NotDetected); Barbiturate Screen,Urine Not Detected (NotDetected); Benzodiazepines Screen,Urine Not Detected (NotDetected); Cocaine Screen,Urine Not Detected (NotDetected); Methadone Screen, Urine Not Detected (NotDetected); Opiate Screen,Urine Not Detected (NotDetected); Oxycodone Screen, Urine Not Detected (NotDetected); Phencyclidine Screen,Urine Not Detected (NotDetected); Tricyclic Antidepressant,Urine Not Detected (NotDetected); Urn Cannabinoid Scrn Detected (NotDetected)
[2024-08-21] MEDS: 0.9% NACL WITH KCL 40 MEQ/L 1,000 ML IV SCH (12:58)
[2024-08-21] MEDS: POTASSIUM CHLORIDE 20 MEQ in WATER FOR INJECTION 1 100ML.BAG IVPB STA (12:58)
[2024-08-21] MEDS: ONDANSETRON 4 MG/2 ML VIAL IVP PRN (13:19)
--- NOTE | 2024-08-21 14:06 | P.GSCN ---
History of Present Illness Consult date: 08/21/24 History of present illness: CHIEF COMPLAINT: Nausea and vomiting HISTORY OF PRESENT ILLNESS: This is a 19-year-old female who presented the hospital with complaints of nausea, vomiting and diarrhea over the last 6 days. Patient has had 4 ER visits since August 15 for nausea and vomiting. There is concern of cannabinoid hyperemesis syndrome. Patient reports that she has not used marijuana in 6 days. She reports that she is still vomiting and vomited even this morning. She reports that her stools have been loose. She denies any fever chills or sweats. Potassium and sodium are also low and being corrected. Surgical service consulted for EGD. Patient denies ever having EGD before. Patient denies being on any blood thinners. PAST MEDICAL HISTORY: Bipolar, depression PAST SURGICAL HISTORY: none MEDICATIONS: See below ALLERGIES: See below SOCIAL HISTORY: No illicit drug use. Marijuana use REVIEW OF SYSTEMS: CONSTITUTIONAL: Denies fever or chills. HEENT: Denies blurred vision, vision changes, or eye pain. Denies hemoptysis CARDIOVASCULAR: Denies chest pain or pressure. RESPIRATORY: No shortness of breath. GASTROINTESTINAL: See HPI for pertinent findings HEMATOLOGIC: Denies bleeding disorders. GENITOURINARY: Denies any blood in urine or increased urinary frequency. SKIN: Denies pruitis. Denies rash. PHYSICAL EXAM: VITAL SIGNS: Reviewed GENERAL: Well-developed in no acute distress. HEENT: No sclera icterus. Extraocular movements grossly intact. Moist buccal mucosa. Head is atraumatic, normocephalic. No nasal drainage. ABDOMEN: Soft. Nondistended. Nontender NEUROLOGIC: Alert and oriented. Cranial nerves II through XII grossly intact. LABORATORY DATA: WBCs 8.47 Hgb 13.1 platelets 256 Sodium 131 potassium is 2.9 creatinine 0.66 Total bili 1.6 LFTs normal Urinalysis negative for infection Drug screen positive for marijuana IMAGING: ASSESSMENT: 1. Nausea, vomiting and diarrhea 2. Possible cannabinoid hyperemesis syndrome PLAN: -Patient scheduled for EGD tomorrow with Dr. Yañez -Clear liquid diet today -N.p.o. after midnight -HIDA scan ordered for nausea, vomiting workup -Continue to correct electrolytes -Continue antiemetics Physician Blanking Machine Operator note has been reviewed by physician. Signing provider agrees with the documented findings, assessment, and plan of care. Past Medical History Past Medical History: No Reported History History of Any Multi-Drug Resistant Organisms: None Reported Past Surgical History: No Surgical Hx Reported Past Psychological History: Bipolar, Depression Smoking Status: Never smoker Past Alcohol Use History: Occasional Past Drug Use History: Marijuana Medications and Allergies Home Medications Medication Instructions Recorded Confirmed Type Metoclopramide [Reglan] 10 mg PO Q6H PRN #20 tab 08/15/24 08/21/24 Rx Ondansetron Odt [Zofran Odt] 4 mg PO Q8HR PRN #20 tab 08/15/24 08/21/24 Rx Famotidine [Pepcid] 20 mg PO BID #14 tablet 08/20/24 08/21/24 Rx Promethazine [Phenergan] 25 mg PO Q6HR PRN #12 tablet 08/20/24 08/21/24 Rx ARIPiprazole [Abilify] 10 mg PO HS 08/21/24 08/21/24 History Citalopram Hydrobromide [CeleXA] 40 mg PO HS 08/21/24 08/21/24 History Allergies Allergy/AdvReac Type Severity Reaction Status Date / Time corn AdvReac Nausea & Verified 08/21/24 10:37 Vomiting & Diarrhea Surgical - Exam Vital Signs Temp Pulse Resp BP Pulse Ox 98.0 F 74 17 116/77 98 08/21/24 07:14 08/21/24 07:14 08/21/24 07:14 08/21/24 07:14 08/21/24 07:14 Results - Labs 08/21/24 07:35 08/21/24 07:35 Abnormal Lab Results - Last 24 Hours (Table) 08/21/24 08/21/24 08/21/24 Range/Units 07:35 07:35 11:03 Immature Gran # 0.05 H (0.00-0.04) 10*3/uL Eosinophils # 0.00 L (0.04-0.35) 10*3/uL Sodium 131 L (137-145) mmol/L Potassium 2.9 L (3.5-5.1) mmol/L Chloride 97 L (98-107) mmol/L BUN 5 L (7-17) mg/dL Total Bilirubin 1.6 H (0.2-1.3) mg/dL Urine Ketones 2+ H (Negative) U Marijuana (THC) Screen Detected H (NotDetected) Diabetes panel 08/21/24 Range/Units 07:35 Sodium 131 L (137-145) mmol/L Potassium 2.9 L (3.5-5.1) mmol/L Chloride 97 L (98-107) mmol/L Carbon Dioxide 24 (22-30) mmol/L BUN 5 L (7-17) mg/dL Creatinine 0.66 (0.52-1.04) mg/dL Glucose 94 (74-99) mg/dL Calcium 9.1 (8.4-10.2) mg/dL AST 19 (14-36) U/L ALT 8 (4-34) U/L Alkaline Phosphatase 62 (38-126) U/L Total Protein 6.9 (6.3-8.2) g/dL Albumin 4.4 (3.5-5.0) g/dL Calcium panel 08/21/24 Range/Units 07:35 Calcium 9.1 (8.4-10.2) mg/dL Albumin 4.4 (3.5-5.0) g/dL Pituitary panel 08/21/24 Range/Units 07:35 Sodium 131 L (137-145) mmol/L Potassium 2.9 L (3.5-5.1) mmol/L Chloride 97 L (98-107) mmol/L Carbon Dioxide 24 (22-30) mmol/L BUN 5 L (7-17) mg/dL Creatinine 0.66 (0.52-1.04) mg/dL Glucose 94 (74-99) mg/dL Calcium 9.1 (8.4-10.2) mg/dL Adrenal panel 08/21/24 Range/Units 07:35 Sodium 131 L (137-145) mmol/L Potassium 2.9 L (3.5-5.1) mmol/L Chloride 97 L (98-107) mmol/L Carbon Dioxide 24 (22-30) mmol/L BUN 5 L (7-17) mg/dL Creatinine 0.66 (0.52-1.04) mg/dL Glucose 94 (74-99) mg/dL Calcium 9.1 (8.4-10.2) mg/dL Total Bilirubin 1.6 H (0.2-1.3) mg/dL AST 19 (14-36) U/L ALT 8 (4-34) U/L Alkaline Phosphatase 62 (38-126) U/L Total Protein 6.9 (6.3-8.2) g/dL Albumin 4.4 (3.5-5.0) g/dL
[2024-08-21 14:25] LABS: Influenza A Not Detected (Not Detectd); Influenza B Not Detected (Not Detectd); RSV Not Detected (Not Detectd)
--- NOTE | 2024-08-21 15:30 | XR ---
EXAMINATION TYPE: XR chest 1V portable DATE OF EXAM: 08/21/2024 3:21 PM COMPARISON: None CLINICAL INDICATION: Female, 19 years old with history of chf; shortness of breath. TECHNIQUE: XR chest 1V portable Frontal view of the chest. FINDINGS: Lungs/Pleura: There is no evidence of pleural effusion, focal consolidation, or pneumothorax. Pulmonary vascularity: Unremarkable. Heart/mediastinum: Cardiomediastinal silhouette is unremarkable. Musculoskeletal: No acute osseous pathology. IMPRESSION: No acute cardiopulmonary disease/process. [facility], , 08/21/2024 3:28 PM
[2024-08-21 19:32] LABS: Potassium 3.1 mmol/L (3.5-5.1)
[2024-08-21] MEDS: KETOROLAC 15 MG/ML 1 ML VIAL IVP PRN (20:36)
--- NOTE | 2024-08-21 21:09 | HP ---
HISTORY AND PHYSICAL CHIEF COMPLAINT: Nausea and diarrhea. HISTORY OF PRESENT ILLNESS: This is a 19-year-old woman with a past medical history of multiple medical problems with bipolar, depression, is complaining of nausea, vomiting. The patient had apparently 6 times to the ER. The patient has some shaking, also possibly withdrawals. The patient is not compliant with taking the psychiatric medications. The patient is smoking pot, potassium is 2.9. PAST MEDICAL HISTORY: Reviewed include bipolar, depression. The rest of history and chart is also reviewed. HOME MEDICATIONS: Reviewed include Phenergan dose, rest of medications reviewed. ALLERGIES: [place]. FAMILY HISTORY: No history of heart disease or strokes in the family. SOCIAL HISTORY: THC. REVIEW OF SYSTEMS: A 14-point review of systems is negative except as mentioned in history of present illness. PHYSICAL EXAMINATION: VITAL SIGNS: Pulse 70, blood pressure n, respirations 16. HEENT: Conjunctivae normal. NECK: No jugular venous distention. CARDIOVASCULAR: S1, S2. RESPIRATION: Breath sounds diminished at the bases. No rhonchi. No crackles. ABDOMEN: Soft, mild diffuse tenderness in the epigastrium. LEGS: No edema. No swelling. NERVOUS SYSTEM: Diffuse tremors and weak and shaking also present. No focal deficits. Moves all 4 limbs. SKIN: No ulcers. LABORATORY DATA: Reviewed. ASSESSMENT: 1. Nausea, vomiting, possible acute gastritis, possibly secondary to THC. 2. Shaking tremors, possible rule out withdrawal syndrome. 3. Severe hypokalemia. 4. Severe hyponatremia. 5. Elevated bilirubin. 6. Bipolar depression. RECOMMENDATION: This is a 19-year-old woman presented with multiple complex medical issues, we will monitor the patient closely. Continue the current medications, symptomatic treatment. Otherwise at this time, I would also recommend surgical consultation for possible endoscope and CIWA protocol empirically. Continue to monitor. Check alcohol. I would also recommend replace potassium, and continue to monitor and check magnesium also. Prognosis guarded. Further recommendations to follow. MMODL / IJN: [id number] / MTDD
[2024-08-21] MEDS: ARIPiprazole 10 MG TAB PO SCH (22:10)
[2024-08-21] MEDS: CITALOPRAM HYDROBROMIDE 20 MG TAB PO SCH (22:11)
[2024-08-22 06:09] LABS: Basophils # (A) 0.09 10*3/uL (0.00-0.10); Basophils % (A) 1.2 %; Eosinophils # (A) 0.05 10*3/uL (0.04-0.35); Eosinophils % (A) 0.7 %; HCT 35.5 % (37.2-46.3); HGB 12.3 g/dL (12.0-15.0); Lymphocytes # (A) 2.72 10*3/uL (0.90-5.00); Lymphocytes % (A) 37.7 %; MCH 30.4 pg (27.0-32.0); MCHC 34.6 g/dL (32.0-37.0); MCV 87.7 fL (80.0-97.0); Mean Platelet Volume 9.3 fL (9.5-12.2); Monocytes # (A) 1.02 10*3/uL (0.20-1.00); Monocytes % (A) 14.1 %; Neutrophils # (A) 3.31 10*3/uL (1.80-7.70); Neutrophils % (A) 45.9 %; Platelet Count 231 10*3/uL (140-440); RBC 4.05 10*6/uL (4.10-5.20); RDW 12.1 % (11.5-14.5); WBC 7.22 10*3/uL (4.50-10.00)
[2024-08-22 06:32] LABS: ALT 7 U/L (4-34); AST 12 U/L (14-36); African American GFR (CKD) >90 (>60 ml/min/1.73 sqM); Albumin 3.4 g/dL (3.5-5.0); Alkaline Phosphatase 50 U/L (38-126); Anion Gap 5 mmol/L; Blood Urea Nitrogen 3 mg/dL (7-17); Calcium 9.3 mg/dL (8.4-10.2); Carbon Dioxide 25 mmol/L (22-30); Chloride 103 mmol/L (98-107); Glucose 82 mg/dL (74-99); Magnesium 1.9 mg/dL (1.6-2.3); Non-African American GFR(CKD) >90 (>60 ml/min/1.73 sqM); Potassium 3.5 mmol/L (3.5-5.1); Sodium 133 mmol/L (137-145); Total Bilirubin 1.6 mg/dL (0.2-1.3); Total Protein 5.7 g/dL (6.3-8.2)
[2024-08-22] MEDS ORDERED: LIDOCAINE 1% INJ 10MG/ML (20 ML MDV) ONE (10:15)
[2024-08-22] MEDS ORDERED: PROPOFOL 10 MG/ML 20 ML VIAL IV ONE (10:15)
[2024-08-22] MEDS: IV FLUID CONTINUATION 1,000 ML IV ONE ×2 (10:22→10:32)
--- NOTE | 2024-08-22 10:26 | NM ---
EXAMINATION TYPE: NM hepatobiliary wo EF DATE OF EXAM: 08/22/2024 10:18 AM COMPARISON: None CLINICAL INDICATION:Female, 19 years old with history of nausea, vomiting; TECHNIQUE: The patient was given 4.8 mCi of Technetium 99m-Mebrofenin as a radiotracer and multiple scintigraphic images were obtained of the abdomen. FINDINGS: Normal uptake of radiotracer was identified within the liver with excretion into the hepatic and comm on biliary ducts within 5 min. There was normal progressive washout of the liver over the course of t he study. Radiotracer uptake within the gallbladder at 5 minutes as well as small bowel activity. IMPRESSION: 1. Normal hepatobiliary scan. [facility], , 08/22/2024 10:23 AM
--- NOTE | 2024-08-22 10:33 | P.OP ---
Date of Procedure: 08/22/24 Preoperative Diagnosis: Nausea, vomiting Postoperative Diagnosis: Antral gastritis Esophagitis Procedure(s) Performed: EGD Anesthesia: MAC Surgeon: Willis Yañez Pathology: other Condition: stable Disposition: PACU Description of Procedure: The patient was placed on the endoscopy table in the lateral position. She received IV sedation. The Gastroflux oropharynx passed to the esophagus into the stomach. The scope was placed through the pylorus. The first second portion duodenum appeared normal. Scope was then brought back to the antrum this appeared inflamed. A biopsy performed. The scope was then retroflexed remainder of the stomach appeared normal. The GE junction was at 40 cm. The di stal esophagus appeared mildly Fl[place]. A biopsy performed. The proximal esophagus appeared normal. Scope withdrawn to the patient.
[2024-08-22] MEDS: MULTIVITAMINS, THERA 1 EACH TAB PO SCH (11:50)
[2024-08-22] MEDS: FOLIC ACID 1 MG TAB PO SCH (11:50)
--- NOTE | 2024-08-22 13:03 | P.CN ---
Psychiatric Consult - . Consult date: 08/22/24 Consult:: 08/22/24 12:57 IDENTIFYING DATA: This patient is a 19-year-old female with a psychiatric history REASON FOR REFERRAL: Psychiatry was consulted for medication noncompliance HISTORY OF PRESENT ILLNESS: The patient presented to the hospital with nausea, vomiting and diarrhea. Patient has had several ED visits for the same concern. Patient does use cannabis however reportedly had not done so in a few days. Patient received EGD today with a biopsy taken. Attempted to see patient however she was away from her room in the shower. Will reassess tomorrow. PAST PSYCHIATRIC HISTORY: Patient has a history of depression, bipolar. Patient is currently on Abilify 10 mg at bedtime, Celexa 40 mg at bedtime. PAST MEDICAL HISTORY: Denies. ALLERGIES: as per EMR. IMPRESSIONS: History of bipolar disorder Cannabis use disorder PLAN: - Patient was not in her room when attempting to perform assessment. Will reassess tomorrow -Would recommend the following medication changes/additions: Continue Celexa 40 mg at bedtime, Abilify 10 mg at bedtime -Communicated plan to patient's nurse
--- NOTE | 2024-08-22 13:10 | P.PN ---
Subjective Progress Note Date: 08/22/24 SURGICAL PROGRESS NOTE CHIEF COMPLAINT: Nausea vomiting HISTORY OF PRESENT ILLNESS: No new complaints. Patient EGD completed and reporting antral gastritis and esophagitis. HIDA scan completed reporting normal hepatobiliary scan. Afebrile. WBC 7.2 potassium 0.5 AST 12 ALT 7 phosphate PHYSICAL EXAM: VITAL SIGNS: Reviewed. GENERAL: Well-developed in no acute distress. ABDOMEN: Soft. Nondistended. Nontender. NEUROLOGIC: Alert and oriented. Cranial nerves II through XII grossly intact. ASSESSMENT: 1. Nausea, vomiting and diarrhea 2. Possible cannabinoid hyperemesis syndrome 3. Antral gastritis and esophagitis PLAN: - HIDA scan results reviewed with Dr. Yañez. No evidence of cystic duct obstruction. HIDA scan was not completed with ejection fraction. Recommend outpatient HIDA scan with EF to assess for any biliary dyskinesia - Continue PPI for gastritis and esophagitis - Advance to regular diet Physician Acupressurist note has been reviewed by physician. Signing provider agrees with the documented findings, assessment, and plan of care. Objective - Vital Signs Vital signs: Vital Signs Temp 98.0 F 08/22/24 02:53 Pulse 64 08/22/24 02:53 Resp 18 08/22/24 02:53 BP 104/69 08/22/24 02:53 Pulse Ox 97 08/22/24 02:53 FiO2 Intake & Output 08/21/24 08/22/24 08/22/24 18:59 06:59 18:59 Intake Total 825 200 Balance 825 200 Weight 47.174 kg Intake: IV 200 Oral 825 Other: Voiding Method Toilet Toilet Toilet # Voids 2 - Labs CBC & Chem 7: 08/22/24 05:52 08/22/24 05:52 Labs: Abnormal Lab Results - Last 24 Hours (Table) 08/21/24 08/22/24 08/22/24 Range/Units 19:09 05:52 05:52 RBC 4.05 L (4.10-5.20) 10*6/uL Hct 35.5 L (37.2-46.3) % MPV 9.3 L (9.5-12.2) fL Monocytes # 1.02 H (0.20-1.00) 10*3/uL Sodium 132 L 133 L (137-145) mmol/L Potassium 3.1 L (3.5-5.1) mmol/L BUN 3 L (7-17) mg/dL Total Bilirubin 1.6 H (0.2-1.3) mg/dL AST 12 L (14-36) U/L Total Protein 5.7 L (6.3-8.2) g/dL Albumin 3.4 L (3.5-5.0) g/dL
[2024-08-22] MEDS ORDERED: IOPAMIDOL CONTRAST (ORAL USE) VIAL PO PRN (14:25)
[2024-08-22 15:27] LABS: Amylase 36 U/L (30-110); Lipase 74 U/L (23-300)
[2024-08-22 15:45] LABS: T4, Free (Free Thyroxine) 1.73 ng/dL (0.78-2.19)
--- NOTE | 2024-08-22 17:51 | PN ---
PROGRESS NOTE DATE OF SERVICE: 08/22/2024 SUBJECTIVE: This 19-year-old woman who was admitted with abdominal pain, had some shakes and tremors also at this time. The patient does not have any history of alcohol. Apparently, the drug screen is only showing THC and the patient underwent EGD by Surgery, which showed esophagitis and antral gastritis. HIDA scan was negative. The patient is being closely monitored. PAST MEDICAL HISTORY: Reviewed. REVIEW OF SYSTEMS: A 14-point review of systems negative except as mentioned earlier. CURRENT MEDICATIONS: Reviewed. PHYSICAL EXAMINATION: VITAL SIGNS: Pulse is 64, blood pressure 104/69, and respirations 18. HEENT: Conjunctivae normal. NECK: No jugular venous distention. CARDIOVASCULAR: S1, S2. RESPIRATION: Breath sounds diminished at the bases. ABDOMEN: Soft, mild diffuse tenderness. LEGS: No edema. NERVOUS SYSTEM: Nonfocal. LABORATORY DATA: The bilirubin is 1.6, rest of the labs are noted. ASSESSMENT: 1. Severe abdominal pain, nausea, vomiting, possible acute gastritis and esophagitis. 2. THC positive, possibly cyclical vomiting syndrome. 3. Shaking tremors, rule out withdrawal syndromes. 4. Severe hypokalemia. 5. Severe hyponatremia. 6. Elevated bilirubin. 7. Bipolar, depression. RECOMMENDATIONS AND DISCUSSION: Recommend to continue current management and continue symptomatic treatment. The patient does not have any focal neurologic deficit, but I would recommend CT scan of the brain to complete the workup and continue to monitor. Symptomatic treatment with supplement vitamins. Monitor lytes. Closely follow with Surgery. Guarded prognosis, because of multiple complex medical issues. I recommend CT scan of the abdomen and pelvis also. Discussed with the patient and the family at bedside. MMODL / IJN: [id number] /
[2024-08-22] MEDS: THIAMINE 100 MG TAB PO SCH (17:56)
[2024-08-22] MEDS ORDERED: LORazepam 1 MG/0.5 ML VIAL IV PRN ×4 (18:08→18:09)
--- NOTE | 2024-08-22 18:30 | CT ---
EXAMINATION TYPE: CT abdomen pelvis w con CT DLP: 424.7 mGycm, Automated exposure control for dose reduction was used. DATE OF EXAM: 08/22/2024 5:55 PM COMPARISON: Nuclear medicine HIDA scan 08/22/2024 CLINICAL INDICATION:Female, 19 years old with history of abd pain; abd pain TECHNIQUE: Standard CT of the abdomen and pelvis following the administration of 100 cc of Isovue 3 00 IV contrast material and oral contrast. Coronal and sagittal reformats were performed. FINDINGS: LOWER CHEST: Unremarkable ABDOMEN LIVER: Focal fatty infiltration adjacent to the falciform ligament in segment IVb GALLBLADDER AND BILE DUCTS: Unremarkable. PANCREAS: Unremarkable. SPLEEN: Unremarkable. ADRENAL GLANDS: Unremarkable. KIDNEYS AND URETERS: No evidence of hydronephrosis or renal calculus. The kidneys enhance symmetrical ly. Contrast is demonstrated within both collecting systems and proximal ureters on the delayed phase . PELVIS BLADDER: Incompletely distended but grossly unremarkable. REPRODUCTIVE: Anteverted uterus with prominent sized bilateral ovaries with the right ovary demonstra ting a 3.4 cm cystic lesion. Multiple follicles suggested within the left ovary. ABDOMEN & PELVIS STOMACH AND BOWEL: Stomach and duodenum are unremarkable. Enteric contrast reaches the proximal trans verse colon. No focal bowel wall thickening or surrounding inflammatory changes. The appendix is with in normal limits. No evidence of bowel obstruction. PERITONEUM: No evidence of pneumoperitoneum. Small amount of free fluid in the pelvic cul-de-sac. VASCULATURE: No evidence of aortic aneurysm. MUSCULOSKELETAL: No acute osseous abnormalities LYMPH NODES: No evidence for lymphadenopathy. SOFT TISSUE/ABDOMINAL WALL: Unremarkable IMPRESSION: Prominent size of both ovaries with a right ovarian 3.4 cm cystic lesion. May represent a dominant fo llicular cyst versus other etiologies. Underlying PCOS is not excluded. Additionally there is small a mount of free fluid in the pelvic cul-de-sac which may be physiologic. Consider further evaluation [facility] pelvic ultrasound. [facility], , 08/22/2024 6:28 PM
[2024-08-23 10:13] LABS: Basophils # (A) 0.04 X 10*3/uL (0.00-0.10); Basophils % (A) 0.4 %; Eosinophils # (A) 0.01 X 10*3/uL (0.04-0.35); Eosinophils % (A) 0.1 %; HCT 40.6 % (37.2-46.3); HGB 13.6 g/dL (12.0-15.0); Lymphocytes # (A) 1.37 X 10*3/uL (0.90-5.00); Lymphocytes % (A) 14.2 %; MCH 29.4 pg (27.0-32.0); MCHC 33.5 g/dL (32.0-37.0); MCV 87.7 FL (80.0-97.0); Mean Platelet Volume 9.8 FL (9.5-12.2); Monocytes # (A) 0.61 X 10*3/uL (0.20-1.00); Monocytes % (A) 6.3 %; NRBC Per 100 WBC 0 X 10*3/uL (0.00-0.01); Neutrophils # (A) 7.53 X 10*3/uL (1.80-7.70); Neutrophils % (A) 78.4 %; Platelet Count 282 X 10*3/uL (140-440); RBC 4.63 X 10*6/uL (4.10-5.20); RDW 12.4 % (11.5-14.5); WBC 9.62 X 10*3/uL (4.50-10.00)
--- NOTE | 2024-08-23 10:18 | P.PN ---
Subjective Progress Note Date: 08/23/24 Patient feels slightly better. She still has nausea. Her HIDA scan shows no evidence of cystic duct obstruction however the ejection fraction was not performed. On exam vital signs appear stable. Abdomen is soft. Chronic nausea. Patient will have HIDA scan repeated with ejection fraction. Objective - Vital Signs Vital signs: Vital Signs Temp 97.8 F 08/23/24 07:00 Pulse 98 08/23/24 07:00 Resp 20 08/23/24 07:00 BP 136/95 08/23/24 07:00 Pulse Ox 94 L 08/23/24 07:00 FiO2 Intake & Output 08/22/24 08/23/24 08/23/24 18:59 06:59 18:59 Intake Total 425 Balance 425 Intake: IV 200 Oral 225 Other: Voiding Method Toilet Toilet # Voids 1 2 - Labs CBC & Chem 7: 08/23/24 06:29 08/22/24 05:52 Labs: Abnormal Lab Results - Last 24 Hours (Table) 08/23/24 Range/Units 06:29 Immature Gran # 0.06 H (0.00-0.04) X 10*3/uL Eosinophils # 0.01 L (0.04-0.35) X 10*3/uL Microbiology - Last 24 Hours (Table) 08/21/24 10:47 Blood Culture - Preliminary Blood
[2024-08-23 10:38] LABS: ALT 7 U/L (8-44); AST 11 U/L (13-35); Albumin 4.4 g/dL (3.8-4.9); Alkaline Phosphatase 60 U/L (41-126); BUN/Creat Ratio <5.83 Ratio (12.00-20.00); Blood Urea Nitrogen <3.5 mg/dL (9.0-27.0); Calcium 9.1 mg/dL (8.7-10.3); Carbon Dioxide 21.9 mmol/L (21.6-31.8); Chloride 96 mmol/L (96-109); Globulin 2.1 g/dL (1.6-3.3); Glucose 100 mg/dL (70-110); Sodium 129 mmol/L (135-145); Total Bilirubin 1.3 mg/dL (0.3-1.2); Total Protein 6.5 g/dL (6.2-8.2)
--- NOTE | 2024-08-23 11:30 | P.PN ---
Progress Note - Text Progress Note Date: 08/23/24 IDENTIFYING DATA: 19-year-old female, unemployed living with REASON FOR CONSULT: Medication noncompliance INTERVAL HISTORY: Patient seen and evaluated. present at bedside patient was agreeable to speak with there. Patient reports she has been on her current medications for about 3 years however has difficulties adhering with them. She will take the medications for 1 week consistently however with them, another week without them. She has tried setting an alarm clock as a reminder however given the medications are taking in the evening time she often times fall asleep. sometimes will remind her as well to take medications. Discussed with patient regarding the possibility of transitioning to long-acting injectable formulation of Abilify given her history of nonadherence. Also discussed with patient the potential to change her Celexa to Prozac as it has a longer half-life than Celexa which is better for her given her nonadherence. Patient to bring both of these up with her primary care doctor Dr. Barraza as these changes will not be implemented here given her nausea and potential adverse effects which includes nausea and vomiting with changing psychotropic medications. Patient does describe a history of hypomanic symptoms that last a few days. She is currently reporting a lot of depressive symptoms including anhedonia, poor sleep and appetite however they are both related to her underlying nausea and vomiting, low energy. She vehemently denies any suicidal or homicidal ideations. She denies any auditory visual hallucinations. She denied any inpatient psychiatric hospitalizations. She denied any past suicide attempts. She reports weekly alcohol use and last used cannabis 1 week ago. MENTAL STATUS EXAM: General Appearance: Patient appears to be stated age. Patient appears to have fair hygiene and grooming wearing hospital gown with fair eye contact. Behavior: Patient is calmly lying in bed without any agitated behavior. Speech: Fluent, nonpressured Mood/Affect: Mood described as "all right" and affect is blunted Suicidality/Homicidality: Patient denies any suicidal homicidal ideations Perceptions: There are no perceptual abnormalities Though content/process: Thought process is linear and logical Judgment and insight: Fair IMPRESSIONS: History of bipolar 2 disorder Cannabis use disorder PLAN: -At this time patient DOES NOT meet criteria for inpatient psychiatric admission. -Would recommend the following medication changes/additions: Will change psychotropic medications to the morning time to help out with adherence. Discussed with patient the possibility of changing her psychotropic medications however will defer to her PCP for further adjustments given ongoing nausea and vomiting. -spout worker to provide patient with outpatient mental health/psychiatry resources for appropriate follow up upon discharge -Psychiatry will sign off at this time -Please contact with any questions.
[2024-08-23] MEDS: CITALOPRAM HYDROBROMIDE 20 MG TAB PO SCH (12:37)
[2024-08-23] MEDS: ARIPiprazole 10 MG TAB PO SCH (12:38)
[2024-08-23 13:33] VITALS: BMI 19.0
--- NOTE | 2024-08-24 10:07 | P.PN ---
Subjective Progress Note Date: 08/24/24 Patient still has complaints of nausea. There is no documented vomiting. On exam vital signs appear stable. Abdomen soft. Patient will have her HIDA scan with ejection fraction repeated on Monday. Objective - Vital Signs Vital signs: Vital Signs Temp 97.9 F 08/24/24 07:05 Pulse 68 08/24/24 07:05 Resp 16 08/24/24 07:05 BP 139/90 08/24/24 07:05 Pulse Ox 98 08/24/24 07:05 FiO2 Intake & Output 08/23/24 08/24/24 08/24/24 18:59 06:59 18:59 Intake Total 900 Output Total 2 Balance -2 900 Weight 47.174 kg Intake: Intake, IV Titration 900 Amount 0.9% NaCl with KCl 40 Meq 900 /l 1,000 ml @ 75 mls/hr IV .[id number] [facility] Rx#: [id number] Output: Emesis 2 Other: Voiding Method Toilet # Voids 1 2 - Labs CBC & Chem 7: 08/23/24 06:29 08/23/24 06:29 Labs: Abnormal Lab Results - Last 24 Hours (Table) 08/23/24 08/23/24 Range/Units 06:29 06:29 Immature Gran # 0.06 H (0.00-0.04) X 10*3/uL Eosinophils # 0.01 L (0.04-0.35) X 10*3/uL Sodium 129 L (135-145) mmol/L BUN <3.5 L (9.0-27.0) mg/dL BUN/Creatinine Ratio <5.83 L (12.00-20.00) Ratio Total Bilirubin 1.3 H (0.3-1.2) mg/dL AST 11 L (13-35) U/L ALT 7 L (8-44) U/L Microbiology - Last 24 Hours (Table) 08/21/24 10:47 Blood Culture - Preliminary Blood
--- NOTE | 2024-08-24 18:48 | P.PN ---
Subjective Progress Note Date: 08/23/24 19-year-old female who presented the hospital with complaints of nausea, vomiting and diarrhea over the last 6 days. Patient has had 4 ER visits since August 15 for nausea and vomiting. There is concern of cannabinoid hyperemesis syndrome. Patient reports that she has not used marijuana in 6 days. She r eports that she is still vomiting and vomited even this morning. She reports that her stools have been loose. She denies any fever chills or sweats. Potassium and sodium are also low and being corrected. Surgical service consulted for EGD. Patient underwent EGD on 08/22/2024 which revealed inflammation in gastric antrum and distal esophagus -Patient continues to report nausea - HIDA scan was done but without ejection fraction; surgery recommending repeat HIDA scan versus discharge if nausea resolves Objective - Vital Signs Vital signs: Vital Signs Temp 97.8 F 08/23/24 07:00 Pulse 98 08/23/24 07:00 Resp 20 08/23/24 07:00 BP 136/95 08/23/24 07:00 Pulse Ox 94 L 08/23/24 07:00 FiO2 Intake & Output 08/22/24 08/23/24 08/23/24 18:59 06:59 18:59 Intake Total 425 Balance 425 Intake: IV 200 Oral 225 Other: Voiding Method Toilet Toilet Toilet # Voids 1 2 1 - Exam General appearance: alert, in no apparent distress ENT exam: Present: normal exam, mucous membranes moist Neck exam: Present: normal inspection. Absent: tenderness, meningismus, lymphadenopathy Respiratory exam: Present: normal lung sounds bilaterally. Absent: respiratory distress, wheezes, rales, rhonchi, stridor Cardiovascular Exam: Present: regular rate, normal rhythm, normal heart sounds. Absent: systolic murmur, diastolic murmur, rubs, gallop, clicks GI/Abdominal exam: Present: soft, normal bowel sounds. Absent: distended, tenderness, guarding, rebound, rigid Extremities exam: Present: normal inspection, full ROM, normal capillary refill. Absent: tenderness, pedal edema, joint swelling, calf tenderness Back exam: Present: normal inspection. Absent: CVA tenderness (R), CVA tenderness (L) - Labs CBC & Chem 7: 08/23/24 06:29 06/20/25 06:29 Labs: Abnormal Lab Results - Last 24 Hours (Table) 08/23/24 08/23/24 Range/Units 06:29 06:29 Immature Gran # 0.06 H (0.00-0.04) X 10*3/uL Eosinophils # 0.01 L (0.04-0.35) X 10*3/uL Sodium 129 L (135-145) mmol/L BUN <3.5 L (9.0-27.0) mg/dL BUN/Creatinine Ratio <5.83 L (12.00-20.00) Ratio Total Bilirubin 1.3 H (0.3-1.2) mg/dL AST 11 L (13-35) U/L ALT 7 L (8-44) U/L Microbiology - Last 24 Hours (Table) 08/21/24 10:47 Blood Culture - Preliminary Blood Assessment and Plan Assessment: 1. Nausea vomiting and diarrhea; acute gastroenteritis 2. Possible cannabinoid hyperemesis syndrome 3. Rule out gallbladder pathology 4. Shaking tremors, rule out withdrawal syndromes 5. Hyperkalemia 6. Hyponatremia 7. Elevated liver enzymes/bilirubin 8. Bipolar disorder --Patient continues to complain of nausea; HIDA scan is completed and does not show any evidence of cystic duct obstruction however ejection fraction was not measured - Surgery recommending possible repeat HIDA scan with ejection fraction if patient continues to remain symptomatic
--- NOTE | 2024-08-24 18:50 | P.PN ---
Subjective Progress Note Date: 08/24/24 19-year-old female who presented the hospital with complaints of nausea, vomiting and diarrhea over the last 6 days. Patient has had 4 ER visits since August 15 for nausea and vomiting. There is concern of cannabinoid hyperemesis syndrome. Patient reports that she has not used marijuana in 6 days. She r eports that she is still vomiting and vomited even this morning. She reports that her stools have been loose. She denies any fever chills or sweats. Potassium and sodium are also low and being corrected. Surgical service consulted for EGD. Patient underwent EGD on 08/22/2024 which revealed inflammation in gastric antrum and distal esophagus -Patient continues to report nausea - HIDA scan was done but without ejection fraction; surgery recommending repeat HIDA scan versus discharge if nausea resolves 08/24/2024 Patient is seen and evaluated with family at bedside; continues to report severe nausea -Vital signs are reviewed and stable Lab review shows WBC of 9.6, hemoglobin of 13.6 and platelet count of 282, sodium 129, potassium of 4.0 --Will continue with current IV fluid; repeat sodium level - Patient has been reevaluated by general surgery and is recommended to proceed with repeat HIDA scan with ejection fraction which will be done on Monday Objective - Vital Signs Vital signs: Vital Signs Temp 97.9 F 08/24/24 07:05 Pulse 68 08/24/24 07:05 Resp 16 08/24/24 07:05 BP 139/90 08/24/24 07:05 Pulse Ox 98 08/24/24 07:05 FiO2 Intake & Output 08/23/24 08/24/24 08/24/24 18:59 06:59 18:59 Intake Total 900 240 Output Total 2 Balance -2 900 240 Weight 47.174 kg Intake: Intake, IV Titration 900 Amount 0.9% NaCl with KCl 40 Meq 900 /l 1,000 ml @ 75 mls/hr IV .[id number] Rx#: [id number] Oral 240 Output: Emesis 2 Other: Voiding Method Toilet # Voids 1 2 - Exam General appearance: alert, in no apparent distress ENT exam: Present: normal exam, mucous membranes moist Neck exam: Present: normal inspection. Absent: tenderness, meningismus, lymphadenopathy Respiratory exam: Present: normal lung sounds bilaterally. Absent: respiratory distress, wheezes, rales, rhonchi, stridor Cardiovascular Exam: Present: regular rate, normal rhythm, normal heart sounds. Absent: systolic murmur, diastolic murmur, rubs, gallop, clicks GI/Abdominal exam: Present: soft, normal bowel sounds. Absent: distended, tenderness, guarding, rebound, rigid Extremities exam: Present: normal inspection, full ROM, normal capillary refill. Absent: tenderness, pedal edema, joint swelling, calf tenderness Back exam: Present: normal inspection. Absent: CVA tenderness (R), CVA tenderness (L) - Labs CBC & Chem 7: 08/23/24 06:29 08/23/24 06:29 Labs: Microbiology - Last 24 Hours (Table) 08/21/24 10:47 Blood Culture - Preliminary Blood Assessment and Plan Assessment: 1. Nausea vomiting and diarrhea; acute gastroenteritis 2. Possible cannabinoid hyperemesis syndrome 3. Rule out gallbladder pathology 4. Shaking tremors, rule out withdrawal syndromes 5. Hyperkalemia 6. Hyponatremia 7. Elevated liver enzymes/bilirubin 8. Bipolar disorder --Patient continues to complain of nausea; HIDA scan is completed and does not show any evidence of cystic duct obstruction however ejection fraction was not measured - Surgery recommending possible repeat HIDA scan with ejection fraction if patient continues to remain symptomatic
[2024-08-24] MEDS: PANTOPRAZOLE 40 MG TABLET PO SCH (20:07)
[2024-08-24] MEDS: MELATONIN 3 MG TABLET PO SCH (20:08)
--- NOTE | 2024-08-25 09:07 | P.PN ---
Subjective Progress Note Date: 08/25/24 Patient feels slightly better today. She still has some nausea. On exam vital signs are stable. Abdomen is soft. Patient will have her HIDA scan repeated with ejection fraction to evaluate for possible biliary dysfunction. Objective - Vital Signs Vital signs: Vital Signs Temp 97.8 F 08/25/24 07:25 Pulse 97 08/25/24 07:25 Resp 16 08/25/24 07:25 BP 113/74 08/25/24 07:25 Pulse Ox 94 L 08/25/24 07:25 FiO2 Intake & Output 08/24/24 08/25/24 08/25/24 18:59 06:59 18:59 Intake Total 960 480 Balance 960 480 Intake: Oral 960 480 Other: Voiding Method Toilet - Labs CBC & Chem 7: 08/23/24 06:29 08/24/24 12:06 Labs: Abnormal Lab Results - Last 24 Hours (Table) 08/24/24 Range/Units 12:06 Sodium 132 L (135-145) mmol/L Microbiology - Last 24 Hours (Table) 08/21/24 10:47 Blood Culture - Preliminary Blood
[2024-08-25 10:08] LABS: Basophils # (A) 0.06 X 10*3/uL (0.00-0.10); Basophils % (A) 0.6 %; Eosinophils # (A) 0.01 X 10*3/uL (0.04-0.35); Eosinophils % (A) 0.1 %; HCT 44.8 % (37.2-46.3); HGB 14.9 g/dL (12.0-15.0); Lymphocytes # (A) 1.99 X 10*3/uL (0.90-5.00); Lymphocytes % (A) 19.4 %; MCH 29.2 pg (27.0-32.0); MCHC 33.3 g/dL (32.0-37.0); MCV 87.8 FL (80.0-97.0); Mean Platelet Volume 9.6 FL (9.5-12.2); Monocytes # (A) 0.95 X 10*3/uL (0.20-1.00); Monocytes % (A) 9.3 %; NRBC Per 100 WBC 0 X 10*3/uL (0.00-0.01); Platelet Count 315 X 10*3/uL (140-440); RDW 12.6 % (11.5-14.5); WBC 10.27 X 10*3/uL (4.50-10.00)
[2024-08-25 10:17] LABS: BUN/Creat Ratio 8.43 Ratio (12.00-20.00); Blood Urea Nitrogen 5.9 mg/dL (9.0-27.0); Calcium 9.3 mg/dL (8.7-10.3); Carbon Dioxide 21.5 mmol/L (21.6-31.8); Chloride 98 mmol/L (96-109); Glucose 89 mg/dL (70-110); Sodium 133 mmol/L (135-145)
[2024-08-26 05:34] LABS: HCG,Qualitative Serum Not Detected
[2024-08-26 08:13] VITALS: RESP 20
[2024-08-26 10:33] LABS: Calcium 9.6 mg/dL (8.7-10.3); Carbon Dioxide 22.7 mmol/L (21.6-31.8); Chloride 96 mmol/L (96-109); Glucose 85 mg/dL (70-110); Sodium 131 mmol/L (135-145)
--- NOTE | 2024-08-26 12:14 | P.PN ---
Subjective Progress Note Date: 08/26/24 SURGICAL PROGRESS NOTE CHIEF COMPLAINT: Nausea vomiting HISTORY OF PRESENT ILLNESS: Patient reports she is feeling better and would like to be discharged home. Patient EGD completed and reporting antral gastritis and esophagitis. HIDA scan completed reporting normal hepatobiliary scan. A repeat HIDA scan with a EF was ordered for this morning. Patient has declined and would like to be discharged. Afebrile. Patient seen and examined with Dr. Yañez PHYSICAL EXAM: VITAL SIGNS: Reviewed. GENERAL: Well-developed in no acute distress. ABDOMEN: Soft. Nondistended. Nontender. NEUROLOGIC: Alert and oriented. Cranial nerves II through XII grossly intact. ASSESSMENT: 1. Nausea, vomiting and diarrhea 2. Possible cannabinoid hyperemesis syndrome 3. Antral gastritis and esophagitis PLAN: -Recommend HIDA scan to be completed with a EF to evaluate for possible biliary dysfunction. Patient has declined test for today. HIDA with EF can be completed outpatient. Recommend outpatient follow-up. -Patient can be discharged from surgical standpoint -Continue PPI for gastritis and esophagitis this Physician Disability Insurance Claim Examiner note has been reviewed by physician. Signing provider agrees with the documented findings, assessment, and plan of care. Objective - Vital Signs Vital signs: Vital Signs Temp 97.7 F 08/26/24 07:00 Pulse 73 08/26/24 07:00 Resp 20 08/26/24 07:00 BP 114/79 08/26/24 07:00 Pulse Ox 96 08/26/24 07:00 FiO2 Intake & Output 08/25/24 08/26/24 08/26/24 18:59 06:59 18:59 Intake Total 2580 Balance 2580 Intake: Oral 2580 Other: Voiding Method Toilet # Voids 6 1 - Labs CBC & Chem 7: 08/25/24 06:00 08/26/24 04:23 Labs: Abnormal Lab Results - Last 24 Hours (Table) 08/26/24 Range/Units 04:23 Sodium 131 L (135-145) mmol/L Anion Gap 12.30 H (4.00-12.00) mmol/L BUN 8.0 L (9.0-27.0) mg/dL BUN/Creatinine Ratio 10.00 L (12.00-20.00) Ratio
[2024-08-26 14:17] VITALS: BP 108/70; PULSE 82; TEMP 98.7
--- NOTE | 2024-08-27 00:28 | P.DS ---
Providers Date of admission: 08/21/24 08:36 Attending physician: Placido Webb MD Consults: 08/21/24 10:53 Consult Physician Urgent Consulting Provider: Willis Yañez Consult Reason/Comments: abd pain, intractable, N/V, egd? Do you want consulting provider notified?: Yes 08/22/24 12:37 Consult Physician Urgent Consulting Provider: Akiko Washburn Consult Reason/Comments: medication non-compliance Do you want consulting provider notified?: Yes Primary care physician: Ulises Barraza [facility] Course: Diagnoses: 1. Nausea vomiting and diarrhea; acute gastroenteritis 2. Possible cannabinoid hyperemesis syndrome 3. Rule out gallbladder pathology. follow-up outpatient 4. Shaking tremors, resolved 5. Hyperkalemia 6. Hyponatremia 7. Elevated liver enzymes/bilirubin 8. Bipolar disorder Hospital course: 19-year-old female who presented the hospital with complaints of nausea, vomiting and diarrhea over the last [address] of the abdomen and pelvis showing a prominent size of both ovaries right ovary cyst 3.4 cm with B follicular versus PCOS. Patient evaluated by general surgery team, first HIDA scan on 08/22 was nondiagnostic. Repeat HIDA scan was ordered today by surgery team however patient declined and wanted to be discharged. I discussed the case with Colleen from surgery team who confirms to me patient is cleared from their perspective for discharge. Patient tolerates liquid diet. No abdominal pain or tenderness no diarrhea upon discharge Patient also underwent EGD showing antral gastritis with mild esophagitis with biopsy pending As above patient was adamant to be discharged today states she tolerates diet. She requests Reglan upon discharge, I discussed with her possible side effects in details and benefits and alternative she agrees to the treatment. Also I told her about her ovarian lesions and cyst and fluid in cul-de-sac and recommended for automatic toe laster evaluation. Patient does not want to wait she wants to follow-up with her PCP Dr. Barraza. I called Dr. Barraza and updated her and discussed with her the patient case, she kindly took notes about her patient ovarian lesions, cul-de-sac and gastritis. Patient denies any other new complaint she is agreeable for discharge Patient was cleared for discharge by ID team and general surgery Patient will discharge on short course of oral Diflucan per ID team for her Mary UTI Problems and management plan were discussed with the patient and he verbalized understanding and acceptance Patient was found stable and can be discharged home in guarded prognosis however he needs follow-up as an outpatient. Patient was instructed to follow up with PCP Dr. Barraza within one week and patient agrees patient has an appointment with her on September 03 that she intends follow-up with. I called and talked to Dr. Barraza as above Patient was instructed to follow-up with general surgery in 1 to 2 weeks after discharge and she agrees Physical exam Gen: patient is a AAOx3, no distress CVS: S1-S2, RRR, no murmur Lungs: B/L CTA, no wheezing Abdomen: soft, no distention, no tenderness, positive bowel sounds Extremity: no leg edema or induration Time spent more than 35 minutes Patient Condition at Discharge: Stable Plan - Discharge Summary New Discharge Prescriptions: New Folic Acid 1 mg PO DAILY@1200 #30 tab Thiamine [Vitamin B-1] 100 mg PO DAILY #30 tab Continue Ondansetron Odt [Zofran ODT] 4 mg PO Q8HR PRN #20 tab PRN Reason: Nausea And Vomiting Citalopram Hydrobromide [CeleXA] 40 mg PO HS Famotidine [Pepcid] 20 mg PO BID 15 Days #30 tablet Metoclopramide [Reglan] 10 mg PO Q6H PRN 3 Days #12 tab PRN Reason: Nausea And Vomiting ARIPiprazole [Abilify] 10 mg PO HS Discontinued Promethazine [Phenergan] 25 mg PO Q6HR PRN #12 tablet PRN Reason: Vomiting Discharge Medication List Ondansetron Odt [Zofran ODT] 4 mg PO Q8HR PRN #20 tab 08/15/24 [Rx] ARIPiprazole [Abilify] 10 mg PO HS 08/21/24 [History] Citalopram Hydrobromide [CeleXA] 40 mg PO HS 08/21/24 [History] Famotidine [Pepcid] 20 mg PO BID 15 Days #30 tablet 08/26/24 [Rx] Folic Acid 1 mg PO DAILY@1200 #30 tab 08/26/24 [Rx] Metoclopramide [Reglan] 10 mg PO Q6H PRN 3 Days #12 tab 08/26/24 [Rx] Thiamine [Vitamin B-1] 100 mg PO DAILY #30 tab 08/26/24 [Rx] Follow up Appointment(s)/Referral(s): Ulises Barraza DO [Primary Care Provider] - 09/03/24 3:15 pm () Yeni Jenkins DO [Doctor of Osteopathic Medicine] - 1 Week (automatic toe laster for your ovarian cyst please call to schedule an appointment. ) Willis Yañez MD [STAFF PHYSICIAN] - 08/29/24 2:30 pm Patient Instructions/Handouts: Hyponatremia (DC), Hypokalemia (DC), Acute Nausea and Vomiting (DC), Cannabis Abuse (DC) Activity/Diet/Wound Care/Special Instructions: Continue with full liquid diet and may use soft diet as tolerated Avoid foods which cause nausea vomiting Avoid marijuana strictly and other substances. Avoid alcohol and other substances Follow-up with your doctor as instructed Activity as tolerated Discharge Disposition: HOME SELF-CARE
== END 2024-08-26 15:26 | disposition home or self-care (01) | DRG 392 ==
LOC: EC 07:13 → 1SOBS 08:35 → OBSVTOIN 08:36 → 5NMEDONC 08-22 17:53
PROVIDERS: ADMIT Internal Medicine; ATTEND Internal Medicine
PROC: 0DB58ZX Excision of Esophagus, Via Natural or Artificial Opening Endoscopic, Diagnostic (ICD-10-PCS; principal; 2024-08-22 07:30)
DX: K52.9 Noninfective gastroenteritis and colitis, unspecified (principal); E87.1 Hypo-osmolality and hyponatremia; B37.49 Other urogenital candidiasis; F12.10 Cannabis abuse, uncomplicated; E87.5 Hyperkalemia; E80.6 Other disorders of bilirubin metabolism; F31.30 Bipolar disorder, current episode depressed, mild or moderate severity, unspecified; R79.89 Other specified abnormal findings of blood chemistry; E87.6 Hypokalemia; R25.1 Tremor, unspecified; K20.90 Esophagitis, unspecified without bleeding; K29.70 Gastritis, unspecified, without bleeding; Z79.899 Other long term (current) drug therapy; Z91.148 Patient's other noncompliance with medication regimen for other reason; Z11.52 Encounter for screening for COVID-19
CPT/HCPCS: 36415; 43239; 71045; 74177; 78226; 80048; 80051; 80053; 80306; 81003; 81025; 82150; 83690; 83735; 84295; 84439; 84443; 84481; 84703; 85025; 87040; 87636; 88305; 96361; 96374; 96375; 99285